=== PATIENT | female | born 1965 | race American Indian/Alaskan Native ===

== ENCOUNTER 2016-11-21 00:41 | Emergency (ER) | payer MEDICAID, OTHER ==
--- NOTE | 2016-11-21 04:24 | EDM.PDOC ---
ED HISTORY OF PRESENT ILLNESS - General Chief Complaint: Respiratory Problem Stated Complaint: [facility] Time Seen by Provider: 11/21/16 03:59 Source of Information: Reports: Old records, RN notes reviewed History Limitations: Reports: Altered mental status - History of Present Illness INITIAL COMMENTS - FREE TEXT/NARRATIVE: The patient was brought by [facility], however, they left without leaving a run sheet, and our printer is down, therefore we cannot receive a facsimile. The triage nurse was informed that the patient brought for shortness of breath. She apparently has had recent illness and cough, and stated that she has a history of COPD. EMS placed a nonrebreather mask at 10 L. She initially denied pain, but about the time of arrival complained of some brief chest pain. Reviewing prior medical records, the patient has a history of morbid obesity, CHF, and alcohol abuse. No record of a history of COPD. She apparently takes home oxygen at 4L/min, but we do not know of the underlying pulmonary condition for which she takes oxygen. On my evaluation, I found the patient to appear to be sleeping. She would grimace with a sternal rub, but not open her eyes, follow commands, or answer questions. I ordered an ABG which returned with a pH of 7.19 and a PCO2 of > 115. The patient was therefore moved to a trauma room, and preparations were made for intubation. The patient's BP declined while receiving BVM ventilations prior to intubation, therefore I was reluctant to give propofol, however, given the patient's weight of 185 kg, she would require other agents, such as Versed, Ativan, or Valium in excess of what is available to us in the ED. Additionally, I was concerned that given the patient's body habitus, the intubation would likely be difficult , and therefore I was concerned about giving a paralytic. I therefore chose to start the patient on Levophed to raise her blood pressure, which would allow me to use propofol, if required. With Levophed at 25 mcg/min, the patient's BP was adequate, and, likely due to prolonged BVM ventilations, she was beginning to wake up. She was given 2 boluses of Propofol 40 mg/4 ml, resulting in adequate sedation. The patient was then intubated with an 8.0 ET tube using a Mac 4 blade, without difficulty. Endotracheal intubation confirmed with CO2 colorimetric change, fog in the ETT , bilateral breath sounds, and continued good oxygenation. The ET tube was secured at 23 cm at the incisors. Subsequent portable chest radiograph confirms endotracheal intubation, with the ETT tip approximately 2 cm above the fabricio. Initial vent settings A/C 16/.400/5/0.40, later changed to A/C 16/.400/5/1.0 due to low SpO2. - Related Data Allergies/ADRs: Allergies Allergy/AdvReac Type Severity Reaction Status Date / Time No Known Allergies Allergy Verified 11/21/16 00:58 Home Meds: Home Meds Furosemide [Lasix] 40 mg PO DAILY 11/21/16 [History] Omeprazole 1 tab PO DAILY 11/21/16 [History] Past Medical History Cardiovascular History: Reports: Heart Failure, Hypertension Respiratory History: Reports: COPD (suspected) Genitourinary History: Reports: Other (see below) (Solitary kidney) Endocrine/Metabolic History: Reports: Obesity/BMI 30+ - Past Surgical History Female Surgical History: Reports: Nephrectomy Social & Family History - Tobacco Use Smoking Status *Q: Current Every Day Smoker - Caffeine Use Caffeine Use: Reports: Coffee - Alcohol Use Alcohol Use History: Yes Total Drinks Per Week Comment: History of alcoholism ED ROS GENERAL - Review of Systems Review Of Systems: See Below Respiratory: Reports: Shortness of Breath (as per the HPI), Cough (as per the HPI) ED EXAM, GENERAL - Physical Exam Exam: See Below Exam Limited By: Altered mental status General Appearance: obtunded, mild distress Ears: normal external exam Ear Exam: bilateral ear: auricle normal Nose: normal inspection, no blood Throat/Mouth: Normal inspection, Normal lips, Normal teeth, Normal gums, Normal oropharynx, No airway compromise Head: atraumatic, normocephalic Neck: normal inspection, full range of motion Respiratory/Chest: no accessory muscle use, decreased breath sounds. No: crackles, rhonchi, wheezing Cardiovascular: normal peripheral pulses, regular rate, rhythm, no edema, no gallop, no JVD, no murmur, no rub Peripheral Pulses: 4+: radial (L), radial (R) GI/Abdominal: normal bowel sounds, soft, no abnormal bruit, other (Obese) Extremities: normal range of motion, normal capillary refill, other (1-2+ pretibial pitting edema, bilaterally) Neurological: unresponsive Skin Exam: Warm, Dry, Intact, Normal color, No rash Lymphatic: no adenopathy ED RESPIRATORY PROCEDURES - Endotracheal Intubation Time of intubation: 04:56 ET Intubation Indication: respiratory failure Preparation: suction, balloon tested, BVM set up, difficult airway equip ( Glidescope available) Pre-oxygenation: assisted with BVM, 100% FiO2 Anesthesia Meds: Propofol Placement: orotracheal, cuffed, uncomplicated placement Cords visualized: yes ETT size in mm: 8.0 Number of attempts: 1 Confirmed By: CO2 indicator, bilateral breath sounds, chest xray, other (CO2 colorimetric) Tube Secured By: by RT ED CENTRAL LINE INSERTION - Central Line Insertion Central Line Indication: medication administration Site: internal jugular (L) Prep: CDC/MBT guidelines, sterile drapes, chlorhexidine Lumen: triple Gauge: 7Fr Local anesthesia - Lidocaine (Xylocaine): 1% plain Local anesthetic volume: 1cc Ultrasound guided: No Guidewire and dilator removed intact: Yes Complications: No Secured with suture: Yes Post placement confirmation: CXR, all ports aspirated, all ports flushed CXR post-procedure: no pneumothorax, no hemothorax Dressing applied: by provider EKG INTERPRETATION EKG Date: 11/21/16 Time: 02:28 Rhythm: NSR Rate (beats/min): 63 [place]: RAD-right axis deviation P-wave: present QRS: normal ST-T: normal QT: normal Comparison: NA - no prior EKG Course - Vital Signs Last Recorded V/S: Last Vital Signs Temp 36.4 C 11/21/16 00:52 Pulse 49 L 11/21/16 05:30 Resp 26 H 11/21/16 05:30 BP 120/54 L 11/21/16 05:30 Pulse Ox 97 11/21/16 06:00 - Orders/Labs/Meds Orders: Active Orders 24 hr Category Date Time Status EKG 12 Lead [EKG Documentation Completion] [RC] STAT Care 11/21/16 03:10 Active RT Ventilator, Adult [RC] ASDIRECTED Care 11/21/16 04:56 Active Chest 1V Frontal [CR] Routine Exams 11/21/16 08:50 Taken Chest 1V Frontal [CR] Routine Exams 11/21/16 09:05 Taken Chest 1V Frontal [CR] Stat Exams 11/21/16 03:32 Taken Chest 1V Frontal [CR] Stat Exams 11/21/16 05:25 Taken CULTURE URINE [RM] Stat Lab 11/21/16 05:35 Received Norepinephrine [Levophed] 4 mg Med 11/21/16 05:30 Active Dextrose 5% in Water 246 ml IV TITRATE Propofol [Diprivan 100 ML] 100 ml Med 11/21/16 05:30 Active IV TITRATE Sodium Chloride 0.9% [Normal Saline] 1,000 ml Med 11/21/16 05:30 Active IV ASDIRECTED Desired Level of Sedation (RASS) [AST] Click To Edit Oth 11/21/16 05:20 Ordered Medication Orders Norepinephrine Bitartrate 4 mg (/ Dextrose/Water) 250 mls @ 37.5 mls/hr IV TITRATE JOHNATHAN; 10 MCG/MIN PRN Reason: Protocol Last Admin: 11/21/16 04:45 Dose: 10 mcg/min, 37.5 mls/hr Propofol (Diprivan 100 Ml) 100 mls @ 34.019 mls/hr IV TITRATE JOHNATHAN; 25 MCG/KG/ MIN PRN Reason: Protocol Last Titration: 11/21/16 05:21 Dose: 25 mcg/kg/min, 34.019 mls/hr Admin: 11/21/16 04:57 Dose: 25 mcg/kg/min, 34.019 mls/hr Sodium Chloride (Normal Saline) 1,000 mls @ 100 mls/hr IV ASDIRECTED JOHNATHAN Labs: Laboratory Tests 11/21/16 11/21/16 11/21/16 Range/Units 03:18 03:18 03:18 WBC 7.33 (3.98-10.04) K/mm3 RBC 4.91 (3.98-5.22) M/mm3 Hgb 12.5 (11.2-15.7) gm/L Hct 47.7 H (34.1-44.9) % MCV 97.1 H (79.4-94.8) fl MCH 25.5 L (25.6-32.2) pg MCHC 26.2 L (32.2-35.5) g/dl RDW Std Deviation 59.9 H (36.4-46.3) fL Plt Count 102 L (182-369) K/mm3 MPV 11.7 (9.4-12.3) fl Neut % (Auto) 65.7 (34.0-71.1) % Lymph % (Auto) 21.1 (19.3-51.7) % [place] % (Auto) 10.9 (4.7-12.5) % Eos % (Auto) 1.6 (0.7-5.8) Baso % (Auto) 0.3 (0.1-1.2) % Neut # 4.81 (1.56-6.13) K/mm3 Lymph # 1.55 (1.18-3.74) K/mm3 [place] # 0.80 H (0.24-0.36) K/mm3 Eos # 0.12 (0.04-0.36) K/mm3 Baso # 0.02 (0.01-0.08) K/mm3 Manual Slide Review Abnormal smear PT 11.9 (8.0-13.0) SECONDS INR 1.09 APTT 33 (22-36) SECONDS D-Dimer, Quantitative 1.78 H (0.19-0.59) mg/L Puncture Site ABG pH (7.35-7.45) ABG pCO2 (35.0-45.0) mmHg ABG pO2 (80.0-100.0) mmHg ABG HCO3 (22.0-26.0) meq/L ABG O2 Saturation (96.0-97.0) % ABG Base Excess (-2-2.0) A-a Gradient mmHg O2 Delivery Device Oxygen Flow Rate FiO2 (21.00-100.00) % Tidal Volume cc PEEP cmH20 Sodium 147 H (136-145) mEq/L Potassium 4.8 (3.5-5.1) mEq/L Chloride 104 (98-107) mEq/L Carbon Dioxide 45 H* (21-32) mEq/L Anion Gap 2.8 L (5-15) BUN 15 (7-18) mg/dL Creatinine 1.0 (0.55-1.02) mg/dL Est Cr Clr Drug Dosing 52.05 mL/min Estimated GFR (MDRD) 58 (>60) mL/min BUN/Creatinine Ratio 15.0 (14-18) Glucose 119 H (74-106) mg/dL Calcium 8.6 (8.5-10.1) mg/dL Total Bilirubin 1.0 (0.2-1.0) mg/dL AST 12 L (15-37) U/L ALT 13 L (14-59) U/L Alkaline Phosphatase 75 (46-116) U/L Troponin I 0.036 (0.00-0.056) ng/mL B-Natriuretic Peptide (0-100) pg/mL Total Protein 8.3 H (6.4-8.2) g/dl Albumin 3.7 (3.4-5.0) g/dl Globulin 4.6 gm/dL Albumin/Globulin Ratio 0.8 L (1-2) Urine Color (Yellow) Urine Appearance (Clear) Urine pH (5.0-8.0) Ur Specific [place] (1.005-1.030) Urine Protein (Negative) Urine Glucose (UA) (Negative) Urine Ketones (Negative) Urine Occult Blood (Negative) Urine Nitrite (Negative) Urine Bilirubin (Negative) Urine Urobilinogen (0.2-1.0) Ur Leukocyte Esterase (Negative) Urine RBC (0-5) /hpf Urine WBC (0-5) /hpf Ur Epithelial Cells (0-5) /hpf Urine Bacteria (FEW) /hpf Urine Mucus (FEW) /hpf Salicylates (2.8-20) mg/dL Urine Opiates Screen (NEGATIVE) Ur Buprenorphine Scrn (NEGATIVE) Ur Oxycodone Screen (NEGATIVE) Urine Methadone Screen (NEGATIVE) Ur Propoxyphene Screen (NEGATIVE) Acetaminophen (10-30) ug/mL Ur Barbiturates Screen (NEGATIVE) Ur Tricyclics Screen (NEGATIVE) Ur Phencyclidine Scrn (NEGATIVE) Ur Amphetamine Screen (NEGATIVE) U Methamphetamines Scrn (NEGATIVE) U Benzodiazepines Scrn (NEGATIVE) U Cocaine Metab Screen (NEGATIVE) U Marijuana (THC) Screen (NEGATIVE) Ethyl Alcohol (0.00) gm% 11/21/16 11/21/16 11/21/16 Range/Units 03:18 03:18 03:18 WBC (3.98-10.04) K/mm3 RBC (3.98-5.22) M/mm3 Hgb (11.2-15.7) gm/L Hct (34.1-44.9) % MCV (79.4-94.8) fl MCH (25.6-32.2) pg MCHC (32.2-35.5) g/dl RDW Std Deviation (36.4-46.3) fL Plt Count (182-369) K/mm3 MPV (9.4-12.3) fl Neut % (Auto) (34.0-71.1) % Lymph % (Auto) (19.3-51.7) % [place] % (Auto) (4.7-12.5) % Eos % (Auto) (0.7-5.8) Baso % (Auto) (0.1-1.2) % Neut # (1.56-6.13) K/mm3 Lymph # (1.18-3.74) K/mm3 [place] # (0.24-0.36) K/mm3 Eos # (0.04-0.36) K/mm3 Baso # (0.01-0.08) K/mm3 Manual Slide Review PT (8.0-13.0) SECONDS INR APTT (22-36) SECONDS D-Dimer, Quantitative (0.19-0.59) mg/L Puncture Site ABG pH (7.35-7.45) ABG pCO2 (35.0-45.0) mmHg ABG pO2 (80.0-100.0) mmHg ABG HCO3 (22.0-26.0) meq/L ABG O2 Saturation (96.0-97.0) % ABG Base Excess (-2-2.0) A-a Gradient mmHg O2 Delivery Device Oxygen Flow Rate FiO2 (21.00-100.00) % Tidal Volume cc PEEP cmH20 Sodium (136-145) mEq/L Potassium (3.5-5.1) mEq/L Chloride (98-107) mEq/L Carbon Dioxide (21-32) mEq/L Anion Gap (5-15) BUN (7-18) mg/dL Creatinine (0.55-1.02) mg/dL Est Cr Clr Drug Dosing mL/min Estimated GFR (MDRD) (>60) mL/min BUN/Creatinine Ratio (14-18) Glucose (74-106) mg/dL Calcium (8.5-10.1) mg/dL Total Bilirubin (0.2-1.0) mg/dL AST (15-37) U/L ALT (14-59) U/L Alkaline Phosphatase (46-116) U/L Troponin I (0.00-0.056) ng/mL B-Natriuretic Peptide 617 H (0-100) pg/mL Total Protein (6.4-8.2) g/dl Albumin (3.4-5.0) g/dl Globulin gm/dL Albumin/Globulin Ratio (1-2) Urine Color (Yellow) Urine Appearance (Clear) Urine pH (5.0-8.0) Ur Specific [place] (1.005-1.030) Urine Protein (Negative) Urine Glucose (UA) (Negative) Urine Ketones (Negative) Urine Occult Blood (Negative) Urine Nitrite (Negative) Urine Bilirubin (Negative) Urine Urobilinogen (0.2-1.0) Ur Leukocyte Esterase (Negative) Urine RBC (0-5) /hpf Urine WBC (0-5) /hpf Ur Epithelial Cells (0-5) /hpf Urine Bacteria (FEW) /hpf Urine Mucus (FEW) /hpf Salicylates 0.6 L (2.8-20) mg/dL Urine Opiates Screen (NEGATIVE) Ur Buprenorphine Scrn (NEGATIVE) Ur Oxycodone Screen (NEGATIVE) Urine Methadone Screen (NEGATIVE) Ur Propoxyphene Screen (NEGATIVE) Acetaminophen 0 L (10-30) ug/mL Ur Barbiturates Screen (NEGATIVE) Ur Tricyclics Screen (NEGATIVE) Ur Phencyclidine Scrn (NEGATIVE) Ur Amphetamine Screen (NEGATIVE) U Methamphetamines Scrn (NEGATIVE) U Benzodiazepines Scrn (NEGATIVE) U Cocaine Metab Screen (NEGATIVE) U Marijuana (THC) Screen (NEGATIVE) Ethyl Alcohol 0.00 (0.00) gm% 11/21/16 11/21/16 11/21/16 Range/Units 04:00 05:35 05:35 WBC (3.98-10.04) K/mm3 RBC (3.98-5.22) M/mm3 Hgb (11.2-15.7) gm/L Hct (34.1-44.9) % MCV (79.4-94.8) fl MCH (25.6-32.2) pg MCHC (32.2-35.5) g/dl RDW Std Deviation (36.4-46.3) fL Plt Count (182-369) K/mm3 MPV (9.4-12.3) fl Neut % (Auto) (34.0-71.1) % Lymph % (Auto) (19.3-51.7) % [place] % (Auto) (4.7-12.5) % Eos % (Auto) (0.7-5.8) Baso % (Auto) (0.1-1.2) % Neut # (1.56-6.13) K/mm3 Lymph # (1.18-3.74) K/mm3 [place] # (0.24-0.36) K/mm3 Eos # (0.04-0.36) K/mm3 Baso # (0.01-0.08) K/mm3 Manual Slide Review PT (8.0-13.0) SECONDS INR APTT (22-36) SECONDS D-Dimer, Quantitative (0.19-0.59) mg/L Puncture Site Rt radial ABG pH 7.19 L* (7.35-7.45) ABG pCO2 > 115.0 H* (35.0-45.0) mmHg ABG pO2 85.0 (80.0-100.0) mmHg ABG HCO3 (22.0-26.0) meq/L ABG O2 Saturation (96.0-97.0) % ABG Base Excess (-2-2.0) A-a Gradient mmHg O2 Delivery Device Cannula Oxygen Flow Rate 4.0 FiO2 36.00 (21.00-100.00) % Tidal Volume cc PEEP cmH20 Sodium (136-145) mEq/L Potassium (3.5-5.1) mEq/L Chloride (98-107) mEq/L Carbon Dioxide (21-32) mEq/L Anion Gap (5-15) BUN (7-18) mg/dL Creatinine (0.55-1.02) mg/dL Est Cr Clr Drug Dosing mL/min Estimated GFR (MDRD) (>60) mL/min BUN/Creatinine Ratio (14-18) Glucose (74-106) mg/dL Calcium (8.5-10.1) mg/dL Total Bilirubin (0.2-1.0) mg/dL AST (15-37) U/L ALT (14-59) U/L Alkaline Phosphatase (46-116) U/L Troponin I (0.00-0.056) ng/mL B-Natriuretic Peptide (0-100) pg/mL Total Protein (6.4-8.2) g/dl Albumin (3.4-5.0) g/dl Globulin gm/dL Albumin/Globulin Ratio (1-2) Urine Color [place] H (Yellow) Urine Appearance Slt cloudy H (Clear) Urine pH 5.5 (5.0-8.0) Ur Specific [place] > or = 1.030 (1.005-1.030) Urine Protein 3+ H (Negative) Urine Glucose (UA) Negative (Negative) Urine Ketones Negative (Negative) Urine Occult Blood 1+ H (Negative) Urine Nitrite Positive H (Negative) Urine Bilirubin 1+ H (Negative) Urine Urobilinogen 2.0 H (0.2-1.0) Ur Leukocyte Esterase Negative (Negative) Urine RBC 0-5 (0-5) /hpf Urine WBC 0-5 (0-5) /hpf Ur Epithelial Cells 0-5 (0-5) /hpf Urine Bacteria Many H (FEW) /hpf Urine Mucus Few (FEW) /hpf Salicylates (2.8-20) mg/dL Urine Opiates Screen Negative (NEGATIVE) Ur Buprenorphine Scrn Negative (NEGATIVE) Ur Oxycodone Screen Negative (NEGATIVE) Urine Methadone Screen Negative (NEGATIVE) Ur Propoxyphene Screen Negative (NEGATIVE) Acetaminophen (10-30) ug/mL Ur Barbiturates Screen Negative (NEGATIVE) Ur Tricyclics Screen Negative (NEGATIVE) Ur Phencyclidine Scrn Negative (NEGATIVE) Ur Amphetamine Screen Negative (NEGATIVE) U Methamphetamines Scrn Negative (NEGATIVE) U Benzodiazepines Scrn Negative (NEGATIVE) U Cocaine Metab Screen Negative (NEGATIVE) U Marijuana (THC) Screen Negative (NEGATIVE) Ethyl Alcohol (0.00) gm% 11/21/16 11/21/16 Range/Units 05:40 06:30 WBC (3.98-10.04) K/mm3 RBC (3.98-5.22) M/mm3 Hgb (11.2-15.7) gm/L Hct (34.1-44.9) % MCV (79.4-94.8) fl MCH (25.6-32.2) pg MCHC (32.2-35.5) g/dl RDW Std Deviation (36.4-46.3) fL Plt Count (182-369) K/mm3 MPV (9.4-12.3) fl Neut % (Auto) (34.0-71.1) % Lymph % (Auto) (19.3-51.7) % [place] % (Auto) (4.7-12.5) % Eos % (Auto) (0.7-5.8) Baso % (Auto) (0.1-1.2) % Neut # (1.56-6.13) K/mm3 Lymph # (1.18-3.74) K/mm3 [place] # (0.24-0.36) K/mm3 Eos # (0.04-0.36) K/mm3 Baso # (0.01-0.08) K/mm3 Manual Slide Review PT (8.0-13.0) SECONDS INR APTT (22-36) SECONDS D-Dimer, Quantitative (0.19-0.59) mg/L Puncture Site Lt radial Lt radial ABG pH 7.22 L 7.27 L (7.35-7.45) ABG pCO2 104.8 H* 91.3 H* (35.0-45.0) mmHg ABG pO2 109.0 H 66.0 L (80.0-100.0) mmHg ABG HCO3 41.2 H 40.1 H (22.0-26.0) meq/L ABG O2 Saturation 98.4 H 94.1 L (96.0-97.0) % ABG Base Excess 9.4 H 9.8 H (-2-2.0) A-a Gradient 434 224 mmHg O2 Delivery Device Ventilator Ventilator Oxygen Flow Rate FiO2 1.00 L 60.00 (21.00-100.00) % Tidal Volume 400.0 400.0 cc PEEP 5.0 5.0 cmH20 Sodium (136-145) mEq/L Potassium (3.5-5.1) mEq/L Chloride (98-107) mEq/L Carbon Dioxide (21-32) mEq/L Anion Gap (5-15) BUN (7-18) mg/dL Creatinine (0.55-1.02) mg/dL Est Cr Clr Drug Dosing mL/min Estimated GFR (MDRD) (>60) mL/min BUN/Creatinine Ratio (14-18) Glucose (74-106) mg/dL Calcium (8.5-10.1) mg/dL Total Bilirubin (0.2-1.0) mg/dL AST (15-37) U/L ALT (14-59) U/L Alkaline Phosphatase (46-116) U/L Troponin I (0.00-0.056) ng/mL B-Natriuretic Peptide (0-100) pg/mL Total Protein (6.4-8.2) g/dl Albumin (3.4-5.0) g/dl Globulin gm/dL Albumin/Globulin Ratio (1-2) Urine Color (Yellow) Urine Appearance (Clear) Urine pH (5.0-8.0) Ur Specific [place] (1.005-1.030) Urine Protein (Negative) Urine Glucose (UA) (Negative) Urine Ketones (Negative) Urine Occult Blood (Negative) Urine Nitrite (Negative) Urine Bilirubin (Negative) Urine Urobilinogen (0.2-1.0) Ur Leukocyte Esterase (Negative) Urine RBC (0-5) /hpf Urine WBC (0-5) /hpf Ur Epithelial Cells (0-5) /hpf Urine Bacteria (FEW) /hpf Urine Mucus (FEW) /hpf Salicylates (2.8-20) mg/dL Urine Opiates Screen (NEGATIVE) Ur Buprenorphine Scrn (NEGATIVE) Ur Oxycodone Screen (NEGATIVE) Urine Methadone Screen (NEGATIVE) Ur Propoxyphene Screen (NEGATIVE) Acetaminophen (10-30) ug/mL Ur Barbiturates Screen (NEGATIVE) Ur Tricyclics Screen (NEGATIVE) Ur Phencyclidine Scrn (NEGATIVE) Ur Amphetamine Screen (NEGATIVE) U Methamphetamines Scrn (NEGATIVE) U Benzodiazepines Scrn (NEGATIVE) U Cocaine Metab Screen (NEGATIVE) U Marijuana (THC) Screen (NEGATIVE) Ethyl Alcohol (0.00) gm% Meds: Medications Generic Name Dose Route Start Last Admin Trade Name Freq PRN Reason Stop Dose Admin Norepinephrine Bitartrate 4 mg 250 mls @ 37.5 mls/hr 11/21/16 05:30 11/21/16 04:45 / Dextrose/Water IV 10 mcg/min TITRATE JOHNATHAN 37.5 mls/hr Protocol Administration 10 MCG/MIN Propofol 100 mls @ 34.019 mls/hr 11/21/16 05:30 11/21/16 05:21 Diprivan 100 Ml IV 25 mcg/kg/min TITRATE JOHNATHAN 34.019 mls/hr Protocol Titration 25 MCG/KG/MIN Sodium Chloride 1,000 mls @ 100 mls/hr 11/21/16 05:30 Normal Saline IV ASDIRECTED JOHNATHAN Discontinued Medications Generic Name Dose Route Start Last Admin Trade Name Cliff PRN Reason Stop Dose Admin Propofol Confirm 11/21/16 04:42 11/21/16 05:21 Diprivan 100 Ml Administered 11/21/16 04:43 Not Given Dose 100 mls @ as directed .ROUTE .STK-MED ONE Dextrose/Water Confirm 11/21/16 04:43 11/21/16 05:21 Dextrose 5% In Water Administered 11/21/16 04:44 Not Given Dose 250 mls @ as directed .ROUTE .STK-MED ONE Sodium Chloride 1,000 mls @ 100 mls/hr 11/21/16 05:15 11/21/16 04:40 Normal Saline IV 100 mls/hr ASDIRECTED JOHNATHAN Administration Azithromycin 500 mg/ Sodium 250 mls @ 250 mls/hr 11/21/16 08:00 11/21/16 08: 49 Chloride IV 11/21/16 08:59 250 mls/hr ONETIME ONE Administration Ceftriaxone Sodium 2 gm/ 100 mls @ 200 mls/hr 11/21/16 08:00 11/21/16 08:49 Sodium Chloride IV 11/21/16 08:29 200 mls/hr ONETIME ONE Administration Propofol 40 mg 11/21/16 05:19 11/21/16 04:55 Diprivan 20 Ml IVPUSH 11/21/16 05:20 40 mg ONETIME ONE Administration Propofol 40 mg 11/21/16 05:24 11/21/16 04:57 Diprivan 20 Ml IVPUSH 11/21/16 05:25 40 mg ONETIME ONE Administration - Radiology Interpretation Free Text/Narrative:: Portable chest radiograph obtained 11/20/2016 (prior to intubation) appears to demonstrate cardiomegaly, but no pulmonary vascular congestion or pleural effusions to suggest decompensated CHF. No focal infiltrate. No pneumothorax. Formal read per the Radiologist pending. Post-intubation portable chest radiograph is of limited quality. The ET tube appears to be endotracheal, with the tip approximately 2 cm above the fabricio. There are bilateral lung field opacities compatible with bilateral pneumonia, ARDS, or CHF, and the patient's body habitus may be a contributing factor. No apparent pleural effusions. No pneumothorax. possible cardiomegaly, although difficult to determine. Formal read per the Radiologist pending. - Re-Assessments/Exams Free Text/Narrative Re-Assessment/Exam: 11/21/16 05:54 ABG obtained about 30 minutes after intubation, while on A/C 16/.400/5/1.0 is as follows: 7.22/104.8/109/41.2/98.4%. SpO2 96%. FiO2 decreased to 0.60. Given the patient's body habitus, I don't believe there is much room to increase her minute ventilation. Her PAP is approximately 34. The patient's pH and PCO2 are heading in the right direction. At this time, I am not going to make any other vent changes, but will repeat an ABG at 06:30. 11/21/16 06:55 The patient will need to be admitted to the ICU, however, there are no ICU beds available at this facility. We contacted [facility], however, were told that the Learning Program Manager will be busy in the ICU for about an hour. 11/21/16 07:09 ABG drawn around 06:30 is as follows: 7.27/91.3/66/40.1/94.1% Her pH and PCO2 continue to improve. No changes to her vent settings at this time. 11/21/16 07:[address] Kendall Alva, Learning Program Manager at [facility], at 07:50. He accepts the patient for transfer. He requests that we start the patient on ceftriaxone and azithromycin. Departure - Departure Time of Disposition: 08:38 Disposition: DC/Tfer to Acute Hospital 02 Condition: serious Clinical Impression: Hypercapnic respiratory failure Referrals: Shaka Meyer MD [Primary Care Provider] - - My Orders Last 24 Hours: My Active Orders 11/21/16 03:10 EKG 12 Lead [EKG Documentation Completion] [RC] STAT 11/21/16 04:56 RT Ventilator, Adult [RC] ASDIRECTED 11/21/16 05:20 Desired Level of Sedation (RASS) [AST] Click To Edit 11/21/16 05:25 Chest 1V Frontal [CR] Stat 11/21/16 05:30 Norepinephrine [Levophed] 4 mg Dextrose 5% in Water 246 ml IV TITRATE Propofol [Diprivan 100 ML] 100 ml IV TITRATE Sodium Chloride 0.9% [Normal Saline] 1,000 ml IV ASDIRECTED 11/21/16 05:35 CULTURE URINE [RM] Stat 11/21/16 08:50 Chest 1V Frontal [CR] Routine 11/21/16 09:05 Chest 1V Frontal [CR] Routine - Assessment/Plan Last 24 Hours: My Active Orders 11/21/16 03:10 EKG 12 Lead [EKG Documentation Completion] [RC] STAT 11/21/16 04:56 RT Ventilator, Adult [RC] ASDIRECTED 11/21/16 05:20 Desired Level of Sedation (RASS) [AST] Click To Edit 11/21/16 05:25 Chest 1V Frontal [CR] Stat 11/21/16 05:30 Norepinephrine [Levophed] 4 mg Dextrose 5% in Water 246 ml IV TITRATE Propofol [Diprivan 100 ML] 100 ml IV TITRATE Sodium Chloride 0.9% [Normal Saline] 1,000 ml IV ASDIRECTED 11/21/16 05:35 CULTURE URINE [RM] Stat 11/21/16 08:50 Chest 1V Frontal [CR] Routine 11/21/16 09:05 Chest 1V Frontal [CR] Routine
[2016-11-21] MEDS ORDERED: Dextrose 5% in Water 250 ML ONE (04:43)
[2016-11-21] MEDS ORDERED: Sodium Chloride 0.9% 1,000 ML IV SCH ×2 (05:15→05:30)
[2016-11-21] MEDS ORDERED: Propofol 200 MG/20 ML SDV IVPUSH ONE ×2 (05:19→05:24)
[2016-11-21] MEDS ORDERED: Succinylcholine 200 MG/10 ML MDV ONE (05:25)
[2016-11-21] MEDS ORDERED: Norepinephrine 4 MG in Dextrose 5% in Water 246 ML IV SCH ×2 (05:30)
[2016-11-21 05:36] VITALS: BP 120/54
[2016-11-21] MEDS ORDERED: Azithromycin 500 MG in Sodium Chloride 0.9% 250 ML IV ONE (08:00)
[2016-11-21] MEDS ORDERED: cefTRIAXone 2 GM in Sodium Chloride 0.9% 100 ML IV ONE (08:00)
--- NOTE | 2016-11-22 07:59 | CR ---
Chest: Portable view of the chest was obtained. Comparison: No previous study. Heart is enlarged. Pulmonary vessels are congested. Bony structures are grossly intact. Impression: 1. Findings felt compatible with CHF. Diagnostic code #3
--- NOTE | 2016-11-22 07:59 | CR ---
Chest: Portable supine view of the chest was obtained. Comparison: Previous chest x-ray of 11/21/16. Heart is enlarged. Pulmonary vessels are felt to be congested. Right hemidiaphragm is poorly seen possibly due to pleural effusion. Endotracheal tube is seen with the tip lying at the lower level of the clavicles. Bony structures are grossly intact. Impression: 1. Findings felt compatible with CHF as described above. 2. Tip of endotracheal tube at the level of the clavicles. Diagnostic code #3
--- NOTE | 2016-11-22 07:59 | CR ---
Chest: Frontal view of the chest was obtained. Comparison: Previous chest x-ray performed earlier on the same day (08:39 AM). Endotracheal tube is seen. Tip lies at the lower level of the clavicles. Nasogastric tube is noted coursing off the inferior edge of the film into the stomach. Heart is enlarged. Pulmonary vessels are congested. Impression: 1. Endotracheal tube and nasogastric tube as noted above. 2. Findings compatible with continuing CHF. Diagnostic code #3
--- NOTE | 2016-11-23 13:12 | CR ---
Chest: Portable view of the chest was obtained. Comparison: Previous chest x-ray performed earlier on the same day (3:36 AM). Endotracheal tube is seen. Tip lies at the lower level of the clavicles in satisfactory position. Heart is enlarged. Pulmonary vessels remain mildly congested. Bony structures are grossly intact. Impression: 1. Cardiomegaly and pulmonary vascular congestion. Findings are similar to prior exam. 2. Endotracheal tube is seen with tip lying at the lower level of the clavicles in satisfactory position. Diagnostic code #3
== END 2016-11-21 09:45 ==
LOC: JD.ED 00:41
PROC: 0BH17EZ Insertion of Endotracheal Airway into Trachea, Via Natural or Artificial Opening (ICD-10-PCS; principal; 2016-11-21)
PROC: 5A1935Z Respiratory Ventilation, Less than 24 Consecutive Hours (ICD-10-PCS; 2016-11-21)
DX: J96.92 Respiratory failure, unspecified with hypercapnia (principal); I50.9 Heart failure, unspecified; E66.01 Morbid (severe) obesity due to excess calories; F10.10 Alcohol abuse, uncomplicated; F17.200 Nicotine dependence, unspecified, uncomplicated; I10 Essential (primary) hypertension; Z90.5 Acquired absence of kidney; Z79.899 Other long term (current) drug therapy; Z68.43 Body mass index [BMI] 50.0-59.9, adult; R41.82 Altered mental status, unspecified
CPT/HCPCS: 31500; 36415; 36556; 36600; 51702; 71010; 80053; 80306; 81001; 82803; 82962; 83880; 84484; 85025; 85379; 85610; 85730; 87086; 87088; 87186; 87804; 93005; 94002; 96365; 96366; 96368; 96375; 99285; G0480; J0330; J0456; J0696; J7030; J7040; J7050; J7060; J2704; J3490

== ENCOUNTER 2017-01-06 19:20 | Emergency (ER) | payer MEDICAID, OTHER ==
[2017-01-06 19:31] VITALS: BP 160/61
[2017-01-06] MEDS ORDERED: Sodium Chloride 0.9% 10 ML Syringe FLUSH PRN (19:38)
[2017-01-06] MEDS ORDERED: Furosemide 40 MG/4 ML VIAL IVPUSH ONE ×3 (19:51→21:29)
--- NOTE | 2017-01-06 19:53 | EDM.PDOC ---
ED HISTORY OF PRESENT ILLNESS - General Chief Complaint: Chest Pain Stated Complaint: [facility] Time Seen by Provider: 01/06/17 19:38 Source of Information: Reports: Patient, RN notes reviewed - History of Present Illness INITIAL COMMENTS - FREE TEXT/NARRATIVE: 51-year-old female has been brought in by [facility] for evaluation of shortness of breath, chest pain, generalized weakness and confusion. Patient is confused on arrival to ED,with altered mental status and not able to offer any meaningful information. By the time I was called to see the patient the ambulance crew had left so not able to ask further questions. Therefore I have no idea when her symptoms started or any information regarding past medical history at time of initial evaluation. - Related Data Allergies/ADRs: Allergies Allergy/AdvReac Type Severity Reaction Status Date / Time No Known Allergies Allergy Verified 01/06/17 19:31 Home Meds: Home Meds Albuterol/Ipratropium [DuoNeb 3.0-0.5 MG/3 ML] 3 ml NEB Q4H PRN #90 neb [Rx] Fluticasone/Salmeterol [Advair Diskus 250-50] 1 puff INH BID #1 inhaler [Rx] Furosemide [Lasix] 20 mg PO BIDDIURETIC #60 tablet 09/07/16 [Rx] Nicotine [Habitrol] 14 mg TRDERM DAILY #30 patch 09/07/16 [Rx] Omeprazole 20 mg PO BIDAC #60 cap.cr 09/07/16 [Rx] Potassium Chloride 10 meq PO DAILY #30 capsule.er 09/07/16 [Rx] guaiFENesin [Mucinex] 600 mg PO BID #14 tab.er 09/07/16 [Rx] Furosemide [Lasix] 40 mg PO DAILY 11/21/16 [History] Omeprazole 1 tab PO DAILY 11/21/16 [History] Past Medical History HEENT History: Reports: Impaired vision Other HEENT History: GLASSES Cardiovascular History: Reports: Heart Failure, Hypertension Respiratory History: Reports: COPD, Pneumonia, recurrent, SOB Gastrointestinal History: Reports: GERD, GI bleed, Hemorrhoids Genitourinary History: Reports: UTI, recurrent ACIDIZER History: Reports: Other OB/BYN History: 3 children vaginally Musculoskeletal History: Reports: Arthritis, Fracture Other Musculoskeletal History: right pinky Neurological History: Reports: Brain injury, Head trauma, Migraines Endocrine/Metabolic History: Reports: Obesity/BMI 30+ Oncologic (Cancer) History: Reports: Other (see below) Other Oncologic History: Kidney Other Dermatologic History: 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 she has several pitting scars to her abdomen some small round areas that are darker in color ...looks like possibly boil scars. - Past Surgical History GI Surgical History: Reports: Cholecystectomy Female Surgical History: Reports: D&C, Nephrectomy Social & Family History - Family History Family Medical History: Noncontributory Endocrine/Metabolic: Reports: Diabetes, type II - Tobacco Use Smoking Status *Q: Unknown Ever Smoked Years of Tobacco use: 20 Packs/Tins Daily: 0 Used Tobacco, but Quit: No Second Hand Smoke Exposure: No - Caffeine Use Caffeine Use: Reports: None - Recreational Drug Use Recreational Drug Use: No - Living Situation & Occupation Occupation: disabled ED ROS GENERAL - Review of Systems Review Of Systems: Unable To Obtain ED EXAM, GENERAL - Physical Exam Exam: See Below General Appearance: lethargic Eye Exam: bilateral eye: PERRL Nose: normal inspection Throat/Mouth: Normal inspection, Normal oropharynx Head: facial swelling (Secondary to obesity) Neck: other (Neck also very obese, no JVD visible) Respiratory/Chest: respiratory distress (Patient does have tachypnea on arrival to ED), rales (Bilateral) Cardiovascular: regular rate, rhythm GI/Abdominal: non tender, other (Abdomen very obese). No: guarding Extremities: pedal edema (Severe bilateral). No: increased warmth, redness Neurological: other (Patient did open her eyes when I walked into the room and asked how she was doing, not answering questions in any meaningful way) EKG INTERPRETATION EKG Date: 01/06/17 Rhythm: NSR [place]: RAD-right axis deviation P-wave: present QRS: normal ST-T: normal Course - Vital Signs Text/Narrative:: Chest x-ray shows cardiomegaly, severe pulmonary congestion, CHF. Last Recorded V/S: Last Vital Signs Temp 97.1 F 01/06/17 19:25 Pulse 76 01/06/17 19:25 Resp 28 H 01/06/17 19:25 BP 160/61 H 01/06/17 19:25 Pulse Ox 99 01/06/17 19:25 - Orders/Labs/Meds Orders: Active Orders 24 hr Category Date Time Status EKG 12 Lead [EKG Documentation Completion] [RC] STAT Care 01/06/17 19:39 Active Doshi Catheter Insertion [Insert Urinary Catheter] [OM. Care 01/06/17 21:00 Ordered PC] Q24H Oxygen Therapy [RC] ASDIRECTED Care 01/06/17 19:39 Active Peripheral IV Care [RC] . DIRECTED Care 01/06/17 19:39 Active Urinary Catheter Assessment [RC] ASDIRECTED Care 01/06/17 20:58 Active Chest 1V Frontal [CR] Stat Exams 01/06/17 19:39 Taken CULTURE URINE [RM] Stat Lab 01/06/17 21:00 Received BiPAP [RESPCARE] Urgent Oth 01/06/17 20:48 Active Peripheral IV Insertion Adult [OM.PC] Stat Oth 01/06/17 19:39 Ordered Labs: Laboratory Tests 01/06/17 01/06/17 01/06/17 Range/Units 19:30 19:30 19:30 WBC 7.94 (3.98-10.04) K/mm3 RBC 5.06 (3.98-5.22) M/mm3 Hgb 12.3 (11.2-15.7) gm/L Hct 46.8 H (34.1-44.9) % MCV 92.5 (79.4-94.8) fl MCH 24.3 L (25.6-32.2) pg MCHC 26.3 L (32.2-35.5) g/dl RDW Std Deviation 58.1 H (36.4-46.3) fL Plt Count 120 L (182-369) K/mm3 MPV 12.4 H (9.4-12.3) fl Neut % (Auto) 73.1 H (34.0-71.1) % Lymph % (Auto) 15.9 L (19.3-51.7) % Cache % (Auto) 8.8 (4.7-12.5) % Eos % (Auto) 1.4 (0.7-5.8) Baso % (Auto) 0.3 (0.1-1.2) % Neut # (Auto) 5.81 (1.56-6.13) K/mm3 Lymph # (Auto) 1.26 (1.18-3.74) K/mm3 Cache # (Auto) 0.70 H (0.24-0.36) K/mm3 Eos # (Auto) 0.11 (0.04-0.36) K/mm3 Baso # (Auto) 0.02 (0.01-0.08) K/mm3 Manual Slide Review Abnormal smear Puncture Site ABG pH (7.35-7.45) ABG pCO2 (35.0-45.0) mmHg ABG pO2 (80.0-100.0) mmHg ABG HCO3 (22.0-26.0) meq/L ABG O2 Saturation (96.0-97.0) % ABG Base Excess (-2-2.0) Obie Test A-a Gradient mmHg O2 Delivery Device Oxygen Flow Rate FiO2 (21.00-100.00) % Blood Gas Comments Sodium 142 (136-145) mEq/L Potassium 5.8 H (3.5-5.1) mEq/L Chloride 105 (98-107) mEq/L Carbon Dioxide 38 H (21-32) mEq/L Anion Gap 4.8 L (5-15) BUN 25 H (7-18) mg/dL Creatinine 1.0 (0.55-1.02) mg/dL Est Cr Clr Drug Dosing 52.05 mL/min Estimated GFR (MDRD) 58 (>60) mL/min BUN/Creatinine Ratio 25.0 H (14-18) Glucose 115 H (74-106) mg/dL POC Glucose (70-105) mg/dL Calcium 8.9 (8.5-10.1) mg/dL Total Bilirubin 1.1 H (0.2-1.0) mg/dL AST 19 (15-37) U/L ALT 12 L (14-59) U/L Alkaline Phosphatase 96 (46-116) U/L Ammonia (11-32) umol/L Troponin I 0.017 (0.00-0.056) ng/mL C-Reactive Protein (<1.0) mg/dL B-Natriuretic Peptide 697 H (0-100) pg/mL Total Protein 8.9 H (6.4-8.2) g/dl Albumin 3.7 (3.4-5.0) g/dl Globulin 5.2 gm/dL Albumin/Globulin Ratio 0.7 L (1-2) Urine Color (Yellow) Urine Appearance (Clear) Urine pH (5.0-8.0) Ur Specific [place] (1.005-1.030) Urine Protein (Negative) Urine Glucose (UA) (Negative) Urine Ketones (Negative) Urine Occult Blood (Negative) Urine Nitrite (Negative) Urine Bilirubin (Negative) Urine Urobilinogen (0.2-1.0) Ur Leukocyte Esterase (Negative) Urine RBC (0-5) /hpf Urine WBC (0-5) /hpf Ur Epithelial Cells Ur Squamous Epith Cells (0-5) /hpf Urine Bacteria (FEW) /hpf Urine Mucus Urine Opiates Screen (NEGATIVE) Ur Buprenorphine Scrn (NEGATIVE) Ur Oxycodone Screen (NEGATIVE) Urine Methadone Screen (NEGATIVE) Ur Propoxyphene Screen (NEGATIVE) Ur Barbiturates Screen (NEGATIVE) Ur Tricyclics Screen (NEGATIVE) Ur Phencyclidine Scrn (NEGATIVE) Ur Amphetamine Screen (NEGATIVE) U Methamphetamines Scrn (NEGATIVE) U Benzodiazepines Scrn (NEGATIVE) U Cocaine Metab Screen (NEGATIVE) U Marijuana (THC) Screen (NEGATIVE) Ethyl Alcohol (0.00) gm% 01/06/17 01/06/17 01/06/17 Range/Units 19:30 19:30 19:50 WBC (3.98-10.04) K/mm3 RBC (3.98-5.22) M/mm3 Hgb (11.2-15.7) gm/L Hct (34.1-44.9) % MCV (79.4-94.8) fl MCH (25.6-32.2) pg MCHC (32.2-35.5) g/dl RDW Std Deviation (36.4-46.3) fL Plt Count (182-369) K/mm3 MPV (9.4-12.3) fl Neut % (Auto) (34.0-71.1) % Lymph % (Auto) (19.3-51.7) % Cache % (Auto) (4.7-12.5) % Eos % (Auto) (0.7-5.8) Baso % (Auto) (0.1-1.2) % Neut # (Auto) (1.56-6.13) K/mm3 Lymph # (Auto) (1.18-3.74) K/mm3 Cache # (Auto) (0.24-0.36) K/mm3 Eos # (Auto) (0.04-0.36) K/mm3 Baso # (Auto) (0.01-0.08) K/mm3 Manual Slide Review Puncture Site ABG pH (7.35-7.45) ABG pCO2 (35.0-45.0) mmHg ABG pO2 (80.0-100.0) mmHg ABG HCO3 (22.0-26.0) meq/L ABG O2 Saturation (96.0-97.0) % ABG Base Excess (-2-2.0) Obie Test A-a Gradient mmHg O2 Delivery Device Oxygen Flow Rate FiO2 (21.00-100.00) % Blood Gas Comments Sodium (136-145) mEq/L Potassium (3.5-5.1) mEq/L Chloride (98-107) mEq/L Carbon Dioxide (21-32) mEq/L Anion Gap (5-15) BUN (7-18) mg/dL Creatinine (0.55-1.02) mg/dL Est Cr Clr Drug Dosing mL/min Estimated GFR (MDRD) (>60) mL/min BUN/Creatinine Ratio (14-18) Glucose (74-106) mg/dL POC Glucose 106 H (70-105) mg/dL Calcium (8.5-10.1) mg/dL Total Bilirubin (0.2-1.0) mg/dL AST (15-37) U/L ALT (14-59) U/L Alkaline Phosphatase (46-116) U/L Ammonia (11-32) umol/L Troponin I (0.00-0.056) ng/mL C-Reactive Protein 0.9 (<1.0) mg/dL B-Natriuretic Peptide (0-100) pg/mL Total Protein (6.4-8.2) g/dl Albumin (3.4-5.0) g/dl Globulin gm/dL Albumin/Globulin Ratio (1-2) Urine Color (Yellow) Urine Appearance (Clear) Urine pH (5.0-8.0) Ur Specific [place] (1.005-1.030) Urine Protein (Negative) Urine Glucose (UA) (Negative) Urine Ketones (Negative) Urine Occult Blood (Negative) Urine Nitrite (Negative) Urine Bilirubin (Negative) Urine Urobilinogen (0.2-1.0) Ur Leukocyte Esterase (Negative) Urine RBC (0-5) /hpf Urine WBC (0-5) /hpf Ur Epithelial Cells Ur Squamous Epith Cells (0-5) /hpf Urine Bacteria (FEW) /hpf Urine Mucus Urine Opiates Screen (NEGATIVE) Ur Buprenorphine Scrn (NEGATIVE) Ur Oxycodone Screen (NEGATIVE) Urine Methadone Screen (NEGATIVE) Ur Propoxyphene Screen (NEGATIVE) Ur Barbiturates Screen (NEGATIVE) Ur Tricyclics Screen (NEGATIVE) Ur Phencyclidine Scrn (NEGATIVE) Ur Amphetamine Screen (NEGATIVE) U Methamphetamines Scrn (NEGATIVE) U Benzodiazepines Scrn (NEGATIVE) U Cocaine Metab Screen (NEGATIVE) U Marijuana (THC) Screen (NEGATIVE) Ethyl Alcohol 0.00 (0.00) gm% 01/06/17 01/06/17 01/06/17 Range/Units 20:09 20:22 20:44 WBC (3.98-10.04) K/mm3 RBC (3.98-5.22) M/mm3 Hgb (11.2-15.7) gm/L Hct (34.1-44.9) % MCV (79.4-94.8) fl MCH (25.6-32.2) pg MCHC (32.2-35.5) g/dl RDW Std Deviation (36.4-46.3) fL Plt Count (182-369) K/mm3 MPV (9.4-12.3) fl Neut % (Auto) (34.0-71.1) % Lymph % (Auto) (19.3-51.7) % Cache % (Auto) (4.7-12.5) % Eos % (Auto) (0.7-5.8) Baso % (Auto) (0.1-1.2) % Neut # (Auto) (1.56-6.13) K/mm3 Lymph # (Auto) (1.18-3.74) K/mm3 Cache # (Auto) (0.24-0.36) K/mm3 Eos # (Auto) (0.04-0.36) K/mm3 Baso # (Auto) (0.01-0.08) K/mm3 Manual Slide Review Puncture Site Lt radial ABG pH 7.14 L* (7.35-7.45) ABG pCO2 114.7 H* (35.0-45.0) mmHg ABG pO2 88.0 (80.0-100.0) mmHg ABG HCO3 37.0 H (22.0-26.0) meq/L ABG O2 Saturation 95.7 L (96.0-97.0) % ABG Base Excess 4.1 H (-2-2.0) Obie Test A-a Gradient mmHg O2 Delivery Device Cannula Oxygen Flow Rate 4.0 FiO2 36.00 (21.00-100.00) % Blood Gas Comments Sodium (136-145) mEq/L Potassium (3.5-5.1) mEq/L Chloride (98-107) mEq/L Carbon Dioxide (21-32) mEq/L Anion Gap (5-15) BUN (7-18) mg/dL Creatinine (0.55-1.02) mg/dL Est Cr Clr Drug Dosing mL/min Estimated GFR (MDRD) (>60) mL/min BUN/Creatinine Ratio (14-18) Glucose (74-106) mg/dL POC Glucose (70-105) mg/dL Calcium (8.5-10.1) mg/dL Total Bilirubin (0.2-1.0) mg/dL AST (15-37) U/L ALT (14-59) U/L Alkaline Phosphatase (46-116) U/L Ammonia 77 H (11-32) umol/L Troponin I (0.00-0.056) ng/mL C-Reactive Protein (<1.0) mg/dL B-Natriuretic Peptide (0-100) pg/mL Total Protein (6.4-8.2) g/dl Albumin (3.4-5.0) g/dl Globulin gm/dL Albumin/Globulin Ratio (1-2) Urine Color (Yellow) Urine Appearance (Clear) Urine pH (5.0-8.0) Ur Specific [place] (1.005-1.030) Urine Protein (Negative) Urine Glucose (UA) (Negative) Urine Ketones (Negative) Urine Occult Blood (Negative) Urine Nitrite (Negative) Urine Bilirubin (Negative) Urine Urobilinogen (0.2-1.0) Ur Leukocyte Esterase (Negative) Urine RBC (0-5) /hpf Urine WBC (0-5) /hpf Ur Epithelial Cells Ur Squamous Epith Cells (0-5) /hpf Urine Bacteria (FEW) /hpf Urine Mucus Urine Opiates Screen Negative (NEGATIVE) Ur Buprenorphine Scrn Negative (NEGATIVE) Ur Oxycodone Screen Negative (NEGATIVE) Urine Methadone Screen Negative (NEGATIVE) Ur Propoxyphene Screen Negative (NEGATIVE) Ur Barbiturates Screen Negative (NEGATIVE) Ur Tricyclics Screen Negative (NEGATIVE) Ur Phencyclidine Scrn Negative (NEGATIVE) Ur Amphetamine Screen Negative (NEGATIVE) U Methamphetamines Scrn Negative (NEGATIVE) U Benzodiazepines Scrn Negative (NEGATIVE) U Cocaine Metab Screen Negative (NEGATIVE) U Marijuana (THC) Screen Negative (NEGATIVE) Ethyl Alcohol (0.00) gm% 01/06/17 01/06/17 01/06/17 Range/Units 20:44 21:30 21:45 WBC (3.98-10.04) K/mm3 RBC (3.98-5.22) M/mm3 Hgb (11.2-15.7) gm/L Hct (34.1-44.9) % MCV (79.4-94.8) fl MCH (25.6-32.2) pg MCHC (32.2-35.5) g/dl RDW Std Deviation (36.4-46.3) fL Plt Count (182-369) K/mm3 MPV (9.4-12.3) fl Neut % (Auto) (34.0-71.1) % Lymph % (Auto) (19.3-51.7) % Cache % (Auto) (4.7-12.5) % Eos % (Auto) (0.7-5.8) Baso % (Auto) (0.1-1.2) % Neut # (Auto) (1.56-6.13) K/mm3 Lymph # (Auto) (1.18-3.74) K/mm3 Cache # (Auto) (0.24-0.36) K/mm3 Eos # (Auto) (0.04-0.36) K/mm3 Baso # (Auto) (0.01-0.08) K/mm3 Manual Slide Review Puncture Site Lt radial ABG pH 7.16 L* (7.35-7.45) ABG pCO2 107.7 H* (35.0-45.0) mmHg ABG pO2 77.0 L (80.0-100.0) mmHg ABG HCO3 36.8 H (22.0-26.0) meq/L ABG O2 Saturation 93.4 L (96.0-97.0) % ABG Base Excess 4.5 H (-2-2.0) Obie Test A-a Gradient mmHg O2 Delivery Device Bipap Oxygen Flow Rate FiO2 40.00 (21.00-100.00) % Blood Gas Comments Bipap 12/7 cm h2o Sodium (136-145) mEq/L Potassium 5.9 H (3.5-5.1) mEq/L Chloride (98-107) mEq/L Carbon Dioxide (21-32) mEq/L Anion Gap (5-15) BUN (7-18) mg/dL Creatinine (0.55-1.02) mg/dL Est Cr Clr Drug Dosing mL/min Estimated GFR (MDRD) (>60) mL/min BUN/Creatinine Ratio (14-18) Glucose (74-106) mg/dL POC Glucose (70-105) mg/dL Calcium (8.5-10.1) mg/dL Total Bilirubin (0.2-1.0) mg/dL AST (15-37) U/L ALT (14-59) U/L Alkaline Phosphatase (46-116) U/L Ammonia (11-32) umol/L Troponin I < 0.017 (0.00-0.056) ng/mL C-Reactive Protein (<1.0) mg/dL B-Natriuretic Peptide (0-100) pg/mL Total Protein (6.4-8.2) g/dl Albumin (3.4-5.0) g/dl Globulin gm/dL Albumin/Globulin Ratio (1-2) Urine Color Yellow (Yellow) Urine Appearance Slt cloudy H (Clear) Urine pH 6.0 (5.0-8.0) Ur Specific [place] 1.025 (1.005-1.030) Urine Protein 2+ H (Negative) Urine Glucose (UA) Negative (Negative) Urine Ketones Negative (Negative) Urine Occult Blood Trace-intact H (Negative) Urine Nitrite Negative (Negative) Urine Bilirubin 1+ H (Negative) Urine Urobilinogen 2.0 H (0.2-1.0) Ur Leukocyte Esterase Negative (Negative) Urine RBC 5-10 H (0-5) /hpf Urine WBC 20-30 H (0-5) /hpf Ur Epithelial Cells Not Reportable Ur Squamous Epith Cells 0-5 (0-5) /hpf Urine Bacteria Many H (FEW) /hpf Urine Mucus Not Reportable Urine Opiates Screen (NEGATIVE) Ur Buprenorphine Scrn (NEGATIVE) Ur Oxycodone Screen (NEGATIVE) Urine Methadone Screen (NEGATIVE) Ur Propoxyphene Screen (NEGATIVE) Ur Barbiturates Screen (NEGATIVE) Ur Tricyclics Screen (NEGATIVE) Ur Phencyclidine Scrn (NEGATIVE) Ur Amphetamine Screen (NEGATIVE) U Methamphetamines Scrn (NEGATIVE) U Benzodiazepines Scrn (NEGATIVE) U Cocaine Metab Screen (NEGATIVE) U Marijuana (THC) Screen (NEGATIVE) Ethyl Alcohol (0.00) gm% 01/06/17 Range/Units 23:09 WBC (3.98-10.04) K/mm3 RBC (3.98-5.22) M/mm3 Hgb (11.2-15.7) gm/L Hct (34.1-44.9) % MCV (79.4-94.8) fl MCH (25.6-32.2) pg MCHC (32.2-35.5) g/dl RDW Std Deviation (36.4-46.3) fL Plt Count (182-369) K/mm3 MPV (9.4-12.3) fl Neut % (Auto) (34.0-71.1) % Lymph % (Auto) (19.3-51.7) % Cache % (Auto) (4.7-12.5) % Eos % (Auto) (0.7-5.8) Baso % (Auto) (0.1-1.2) % Neut # (Auto) (1.56-6.13) K/mm3 Lymph # (Auto) (1.18-3.74) K/mm3 Cache # (Auto) (0.24-0.36) K/mm3 Eos # (Auto) (0.04-0.36) K/mm3 Baso # (Auto) (0.01-0.08) K/mm3 Manual Slide Review Puncture Site Rt radial ABG pH 7.27 L (7.35-7.45) ABG pCO2 82.0 H* (35.0-45.0) mmHg ABG pO2 52.0 L (80.0-100.0) mmHg ABG HCO3 36.1 H (22.0-26.0) meq/L ABG O2 Saturation 86.2 L (96.0-97.0) % ABG Base Excess 6.8 H (-2-2.0) Obie Test Positive A-a Gradient 5 mmHg O2 Delivery Device Bipap Oxygen Flow Rate FiO2 25.00 (21.00-100.00) % Blood Gas Comments Bipap 25/10 Sodium (136-145) mEq/L Potassium (3.5-5.1) mEq/L Chloride (98-107) mEq/L Carbon Dioxide (21-32) mEq/L Anion Gap (5-15) BUN (7-18) mg/dL Creatinine (0.55-1.02) mg/dL Est Cr Clr Drug Dosing mL/min Estimated GFR (MDRD) (>60) mL/min BUN/Creatinine Ratio (14-18) Glucose (74-106) mg/dL POC Glucose (70-105) mg/dL Calcium (8.5-10.1) mg/dL Total Bilirubin (0.2-1.0) mg/dL AST (15-37) U/L ALT (14-59) U/L Alkaline Phosphatase (46-116) U/L Ammonia (11-32) umol/L Troponin I (0.00-0.056) ng/mL C-Reactive Protein (<1.0) mg/dL B-Natriuretic Peptide (0-100) pg/mL Total Protein (6.4-8.2) g/dl Albumin (3.4-5.0) g/dl Globulin gm/dL Albumin/Globulin Ratio (1-2) Urine Color (Yellow) Urine Appearance (Clear) Urine pH (5.0-8.0) Ur Specific [place] (1.005-1.030) Urine Protein (Negative) Urine Glucose (UA) (Negative) Urine Ketones (Negative) Urine Occult Blood (Negative) Urine Nitrite (Negative) Urine Bilirubin (Negative) Urine Urobilinogen (0.2-1.0) Ur Leukocyte Esterase (Negative) Urine RBC (0-5) /hpf Urine WBC (0-5) /hpf Ur Epithelial Cells Ur Squamous Epith Cells (0-5) /hpf Urine Bacteria (FEW) /hpf Urine Mucus Urine Opiates Screen (NEGATIVE) Ur Buprenorphine Scrn (NEGATIVE) Ur Oxycodone Screen (NEGATIVE) Urine Methadone Screen (NEGATIVE) Ur Propoxyphene Screen (NEGATIVE) Ur Barbiturates Screen (NEGATIVE) Ur Tricyclics Screen (NEGATIVE) Ur Phencyclidine Scrn (NEGATIVE) Ur Amphetamine Screen (NEGATIVE) U Methamphetamines Scrn (NEGATIVE) U Benzodiazepines Scrn (NEGATIVE) U Cocaine Metab Screen (NEGATIVE) U Marijuana (THC) Screen (NEGATIVE) Ethyl Alcohol (0.00) gm% Meds: Medications Discontinued Medications Generic Name Dose Route Start Last Admin Trade Name Freq PRN Reason Stop Dose Admin Furosemide 40 mg 01/06/17 19:51 01/06/17 19:57 Lasix IVPUSH 01/06/17 19:52 40 mg NOW ONE Administration Furosemide 40 mg 01/06/17 20:22 01/06/17 20:53 Lasix IVPUSH 01/06/17 20:23 40 mg NOW ONE Administration Furosemide 40 mg 01/06/17 21:29 01/06/17 21:45 Lasix IVPUSH 01/06/17 21:30 40 mg NOW ONE Administration Furosemide 40 mg 01/07/17 00:03 01/07/17 00:08 Lasix IVPUSH 01/07/17 00:04 40 mg NOW ONE Administration Ceftriaxone Sodium 1 gm/ 100 mls @ 200 mls/hr 01/06/17 22:16 01/06/17 22:34 Sodium Chloride IV 01/06/17 22:45 200 mls/hr ONETIME ONE Administration Sodium Chloride 10 ml 01/06/17 19:38 01/06/17 19:58 Saline Flush FLUSH 10 ml ASDIRECTED PRN Administration Keep Vein Open - Re-Assessments/Exams Free Text/Narrative Re-Assessment/Exam: 01/06/17 20:45. Patient did present with altered status, quite concerned for CO2 retention. I am told that she arrived on 10 L mask, [facility]. I do not know how long she was on the 10 L but they do have about a 70 minute transport from [place]. I do not know if she is on home oxygen chronically and also do not know what her mental status was prior to them putting her on the oxygen 10 L. I had her nurse turn O2 down to 3 L nasal cannula. With that sats did drop into the mid to upper 80s so O2 was turned up to 4 L pending ABGs. ABGs did show CO2 retention as suspected. PO2 88, PCO2 114.7, pH 7.14 bicarbonate 37. we have put her on BiPAP 08/11/30. Plan to recheck ABGs in about 30 minutes. Chest x-ray does show cardiomegaly, quite severe pulmonary congestion, pulmonary edema. She has been given Lasix 40 mg IV x2. Doshi catheter has been placed. 01/06/17 21:25. Sats were initially around 91% with the BiPAP and FiO2 30%. However now when I walked into the room there 78% and falling. Therefore we did show an FiO2 up to 40% and sats rapidly did come up to 90%. Repeat ABGs being drawn at this time. White blood count is normal. She's not anemic. Chemistries do show a potassium of 5.8. When I check with the lab they state that the specimen was mildly hemolyzed. I am having lab redraw potassium at this time and also will do a repeat troponin. Her initial troponin was normal. Her mental status is improving. Patient is becoming much more responsive. She is Now opening her eyes when spoken to very readily and beginning to answer simple questions. 01/06/17 21:45. Repeat arterial blood gases show very mild improvement with PCO2 now of 107.7, pH 7.16 PO2 77 bicarbonate 36.8. There's been a total of about 500 cc urine output. We did give a third dose of Lasix 40 mg IV a very short time ago. Blood pressure has been maintaining in the 120s systolic. Sats are currently running in the 90-95% range with continued BiPAP at 12/ FiO2 of 30. 01/06/17 22:15. Call for transfer to [facility], admission coordinator was busy with a different transfer. With repeat call I was able to visit with Dr. Rowan, central aisle cashier extrusion manager who does accept patient in transfer. He has looked at records from her previous admission, advises we go up to 25/10 on the BiPAP and decrease her FiO2 to 25%. We have done that and her mental status began to improve almost immediately. Will wait another 15-20 minutes and then repeat ABGs. 22:35. Checked with [facility]. She is too heavy for rotor transfer. We have called [facility] for transfer. They do not have a crew available at this time with their main crew out on her transfer. They have advised to call [facility]. We have called [facility]. They will come down and transfer the patient for us. Repeat ABGs are much improved. PCO2 82 PO2 52, pH 7.27 bicarbonate 36.1. She continues to be much more awake, answering questions appropriately. She also continues to diurese with over 1100 cc urine output since arrival. Initially there was concern for need of intubation prior to transfer. Now with improved blood gases on the more aggressive BiPAP settings and improved mental status we will transfer her with continued BiPAP in route. 23:20. [facility] is here. Their cot is too narrow to safely transport. [facility] crew is now back in town. Have called and they will be able to do the transfer. 23:50 Pt alert, maintaining sats upper 80's to low 90's. Departure - Departure Time of Disposition: 23:00 Disposition: DC/Tfer to Acute Hospital 02 Reason for Transfer *Q: Other Condition: critical Clinical Impression: Pulmonary vascular congestion Hypercapnic respiratory failure Qualifiers: Chronicity: acute on chronic Qualified Code(s): J96.22 - Acute and chronic respiratory failure with hypercapnia Acute exacerbation of CHF (congestive heart failure) Qualifiers: Congestive heart failure type: unspecified congestive heart failure type Qualified Code(s): I50.9 - Heart failure, unspecified Referrals: PCP,None [Primary Care Provider] - Forms: ED Department Discharge - My Orders Last 24 Hours: My Active Orders 01/06/17 19:39 EKG 12 Lead [EKG Documentation Completion] [RC] STAT Oxygen Therapy [RC] ASDIRECTED Peripheral IV Care [RC] . DIRECTED Chest 1V Frontal [CR] Stat Peripheral IV Insertion Adult [OM.PC] Stat 01/06/17 20:48 BiPAP [RESPCARE] Urgent 01/06/17 20:58 Urinary Catheter Assessment [RC] ASDIRECTED 01/06/17 21:00 Doshi Catheter Insertion [Insert Urinary Catheter] [OM.PC] Q24H CULTURE URINE [] Stat - Assessment/Plan Last 24 Hours: My Active Orders 01/06/17 19:39 EKG 12 Lead [EKG Documentation Completion] [RC] STAT Oxygen Therapy [RC] ASDIRECTED Peripheral IV Care [RC] . DIRECTED Chest 1V Frontal [CR] Stat Peripheral IV Insertion Adult [OM.PC] Stat 01/06/17 20:48 BiPAP [RESPCARE] Urgent 01/06/17 20:58 Urinary Catheter Assessment [RC] ASDIRECTED 01/06/17 21:00 Doshi Catheter Insertion [Insert Urinary Catheter] [OM.PC] Q24H CULTURE URINE [RM] Stat
[2017-01-06] MEDS ORDERED: cefTRIAXone 1 GM in Sodium Chloride 0.9% 100 ML IV ONE (22:16)
[2017-01-07] MEDS ORDERED: Furosemide 40 MG/4 ML VIAL IVPUSH ONE (00:03)
--- NOTE | 2017-01-07 10:54 | CR ---
Chest: Portable view of the chest was obtained. Comparison: Previous chest x-ray of 11/21/16. Heart is enlarged. Pulmonary vessels are diffusely increased. Bony structures are grossly intact. Impression: 1. Cardiomegaly. Pulmonary vascular congestion is seen. Some of this congestion may be chronic. Diagnostic code #3
== END 2017-01-07 00:25 ==
LOC: JD.ED 19:20
DX: J96.22 Acute and chronic respiratory failure with hypercapnia (principal); I11.0 Hypertensive heart disease with heart failure; I50.9 Heart failure, unspecified; K21.9 Gastro-esophageal reflux disease without esophagitis; Z87.820 Personal history of traumatic brain injury; E66.9 Obesity, unspecified; Z68.30 Body mass index [BMI] 30.0-30.9, adult; Z90.49 Acquired absence of other specified parts of digestive tract; Z90.5 Acquired absence of kidney; Z79.899 Other long term (current) drug therapy
CPT/HCPCS: 36415; 36600; 51702; 71010; 80053; 80306; 81001; 82140; 82803; 82962; 83880; 84132; 84484; 85025; 86140; 87086; 87088; 87186; 93005; 94660; 96365; 96375; 96376; 99285; G0480; J0696; J1940; J7030; J7050

== ENCOUNTER 2017-05-09 00:23 | Emergency (ER) | payer MEDICAID, SELFPAY ==
[2017-05-09] MEDS ORDERED: Sodium Chloride 0.9% 10 ML Syringe FLUSH PRN (00:42)
[2017-05-09] MEDS ORDERED: Albuterol/Ipratropium 3.0-0.5 MG/3 ML Neb Soln NEB ONE (00:43)
--- NOTE | 2017-05-09 02:06 | EDM.PDOC ---
ED HPI GENERAL MEDICAL PROBLEM - General Chief Complaint: Respiratory Problem Stated Complaint: [facility] Time Seen by Provider: 05/09/17 00:32 Source of Information: Reports: Patient, EMS History Limitations: Reports: No Limitations - History of Present Illness INITIAL COMMENTS - FREE TEXT/NARRATIVE: The patient presents with increased shortness of breath and cough for the past few days. She has a subjective fever and chills. She is on home oxygen and she has needed more. She has a history of CHF, COPD, and pneumonia. She was seen here in January and she was intubated and sent to [place]. She denies chest pain. She has no abdominal pain, nausea or vomiting. She has no dysuria. Onset: Gradual Duration: Day(s): Severity: Moderate Improves with: Reports: None Worsens with: Reports: Movement Associated Symptoms: Reports: Cough, Fever/Chills, Shortness of Breath. Denies : Chest Pain, Nausea/Vomiting - Related Data Allergies Allergy/AdvReac Type Severity Reaction Status Date / Time No Known Allergies Allergy Verified 05/09/17 00:27 Home Meds: Home Meds Albuterol/Ipratropium [DuoNeb 3.0-0.5 MG/3 ML] 3 ml NEB Q4H PRN #90 neb [Rx] Fluticasone/Salmeterol [Advair Diskus 250-50] 1 puff INH BID #1 inhaler [Rx] Furosemide [Lasix] 40 mg PO BID 11/21/16 [History] Omeprazole 1 tab PO DAILY 11/21/16 [History] Albuterol/Ipratropium [DuoNeb 3.0-0.5 MG/3 ML] 3 ml NEB Q4HRRT PRN #25 neb 05/09 [Rx] Prednisone [IJD: predniSONE] 40 mg PO WITHBREAKFAST #10 tab 05/09/17 [Rx] Past Medical History HEENT History: Reports: Impaired Vision Other HEENT History: GLASSES Cardiovascular History: Reports: Heart Failure, Hypertension Respiratory History: Reports: COPD, Pneumonia, Recurrent, SOB Gastrointestinal History: Reports: GERD, GI Bleed, Hemorrhoids Genitourinary History: Reports: UTI, 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 she has several pitting scars to her abdomen some small round areas that are darker in color ...looks like possibly boil scars. - Past Surgical History GI Surgical History: Reports: Cholecystectomy Female Surgical History: Reports: D&C, Nephrectomy Social & Family History - Family History Family Medical History: Noncontributory Endocrine/Metabolic: Reports: Diabetes, type II - Tobacco Use Smoking Status *Q: Current Every Day Smoker Years of Tobacco use: 35 Packs/Tins Daily: 0.5 Used Tobacco, but Quit: No Second Hand Smoke Exposure: No - Caffeine Use Caffeine Use: Reports: None - Recreational Drug Use Recreational Drug Use: No - Living Situation & Occupation Occupation: Disabled ED ROS GENERAL - Review of Systems Review Of Systems: See Below Constitutional: Reports: Fever, Chills HEENT: Reports: No Symptoms Respiratory: Reports: Shortness of Breath, Cough Cardiovascular: Reports: No Symptoms Endocrine: Reports: No Symptoms GI/Abdominal: Reports: No Symptoms : Reports: No Symptoms Musculoskeletal: Reports: No Symptoms ED EXAM, GENERAL - Physical Exam Exam: See Below Exam Limited By: No Limitations General Appearance: Alert, No Apparent Distress Ears: Normal External Exam Nose: Normal Inspection Head: Atraumatic, Normocephalic Neck: Normal Inspection Respiratory/Chest: No Respiratory Distress, Decreased Breath Sounds, Wheezing Cardiovascular: Regular Rate, Rhythm, No Edema, No Murmur GI/Abdominal: Soft, Non-Tender, No Organomegaly, No Mass Back Exam: Normal Inspection EKG INTERPRETATION EKG Date: 05/09/17 Time: 00:29 Rhythm: NSR Rate (Beats/Min): 60 [place]: Normal P-Wave: Present QRS: Normal ST-T: Normal QT: Normal Course - Vital Signs Last Recorded V/S: Last Vital Signs Temp 97.1 F 05/09/17 00:24 Pulse 60 05/09/17 00:24 Resp 25 H 05/09/17 00:24 BP 148/48 H 05/09/17 00:24 Pulse Ox 96 05/09/17 00:51 - Orders/Labs/Meds Orders: Active Orders 24 hr Category Date Time Status Cardiac Monitoring [RC] . DIRECTED Care 05/09/17 00:42 Active EKG 12 Lead [EKG Documentation Completion] [RC] STAT Care 05/09/17 00:34 Active Oxygen Therapy [RC] PRN Care 05/09/17 00:42 Active Peripheral IV Care [RC] . DIRECTED Care 05/09/17 00:43 Active RT Aerosol Therapy [RC] ASDIRECTED Care 05/09/17 00:43 Active Chest 1V Frontal [CR] Stat Exams 05/09/17 00:43 Taken Sodium Chloride 0.9% [Saline Flush] Med 05/09/17 00:42 Active 10 ml FLUSH ASDIRECTED PRN Peripheral IV Insertion Adult [OM.PC] Stat Oth 05/09/17 00:42 Ordered Medication Orders Sodium Chloride (Saline Flush) 10 ml FLUSH ASDIRECTED PRN PRN Reason: Keep Vein Open Last Admin: 05/09/17 00:55 Dose: 10 ml Labs: Laboratory Tests 05/09/17 05/09/17 Range/Units 00:50 00:50 WBC 7.62 (3.98-10.04) K/mm3 RBC 4.83 (3.98-5.22) M/mm3 Hgb 13.9 (11.2-15.7) gm/L Hct 42.7 (34.1-44.9) % MCV 88.4 (79.4-94.8) fl MCH 28.8 (25.6-32.2) pg MCHC 32.6 (32.2-35.5) g/dl RDW Std Deviation 54.0 H (36.4-46.3) fL Plt Count 129 L (182-369) K/mm3 MPV 11.2 (9.4-12.3) fl Neut % (Auto) 69.5 (34.0-71.1) % Lymph % (Auto) 18.9 L (19.3-51.7) % [place] % (Auto) 10.2 (4.7-12.5) % Eos % (Auto) 1.0 (0.7-5.8) Baso % (Auto) 0.1 (0.1-1.2) % Neut # (Auto) 5.29 (1.56-6.13) K/mm3 Lymph # (Auto) 1.44 (1.18-3.74) K/mm3 [place] # (Auto) 0.78 H (0.24-0.36) K/mm3 Eos # (Auto) 0.08 (0.04-0.36) K/mm3 Baso # (Auto) 0.01 (0.01-0.08) K/mm3 Sodium 137 (136-145) mEq/L Potassium 3.8 (3.5-5.1) mEq/L Chloride 104 (98-107) mEq/L Carbon Dioxide 26 (21-32) mEq/L Anion Gap 10.8 (5-15) BUN 18 (7-18) mg/dL Creatinine 1.2 H (0.55-1.02) mg/dL Est Cr Clr Drug Dosing 47.36 mL/min Estimated GFR (MDRD) 47 (>60) mL/min BUN/Creatinine Ratio 15.0 (14-18) Glucose 135 H (74-106) mg/dL Calcium 8.8 (8.5-10.1) mg/dL Total Bilirubin 0.8 (0.2-1.0) mg/dL AST 16 (15-37) U/L ALT 21 (14-59) U/L Alkaline Phosphatase 89 (46-116) U/L Troponin I < 0.017 (0.00-0.056) ng/mL NT-Pro-B Natriuret Pep 701 H (0-125) pg/mL Total Protein 8.3 H (6.4-8.2) g/dl Albumin 3.1 L (3.4-5.0) g/dl Globulin 5.2 gm/dL Albumin/Globulin Ratio 0.6 L (1-2) Meds: Medications Generic Name Dose Route Start Last Admin Trade Name Freq PRN Reason Stop Dose Admin Sodium Chloride 10 ml 05/09/17 00:42 05/09/17 00:55 Saline Flush FLUSH 10 ml ASDIRECTED PRN Administration Keep Vein Open Discontinued Medications Generic Name Dose Route Start Last Admin Trade Name Freq PRN Reason Stop Dose Admin Albuterol/Ipratropium 3 ml 05/09/17 00:43 05/09/17 00:49 Duoneb 3.0-0.5 Mg/3 Ml NEB 05/09/17 00:44 3 ml ONETIME ONE Administration - Re-Assessments/Exams Free Text/Narrative Re-Assessment/Exam: 05/09/17 02:10 I ordered oxygen, IV saline lock, labs, EKG, CXR and a duoneb. 05/09/17 02:11 Her EKG shows a NSR with no acute changes. Her CXR shows cardiomegaly with congestive changes. There is not much of a change from prior CXR. Her CBC looks good. Her creatinine was 1.2. Her glucose was 135. Her troponin was negative. Her BNP was 701. 05/09/17 02:16 She is breathing much better and she sounds better. I feel this is an exacerbation of her COPD. I will give her a dose of solu-medrol 125mg IV and a prescription for more. I will also give her a prescription for some duoneb. Departure - Departure Time of Disposition: 02:20 Disposition: Home, Self-Care 01 Condition: Good Clinical Impression: COPD exacerbation - Discharge Information Prescriptions: Albuterol/Ipratropium [DuoNeb 3.0-0.5 MG/3 ML] 3 ml NEB Q4HRRT PRN #25 neb PRN Reason: Shortness Of Breath Prednisone [IJD: predniSONE] 40 mg PO WITHBREAKFAST #10 tab Referrals: PCP,None [Primary Care Provider] - Forms: ED Department Discharge Additional Instructions: Take the steroid daily for 5 days. Take your medications as prescribed. You may use the duoneb in place of any albuterol inhalers. You can do that every 4 to 6 hours as needed for shortness of breath or wheezing. See you doctor this week and please return if you are worse. - My Orders Last 24 Hours: My Active Orders 05/09/17 00:34 EKG 12 Lead [EKG Documentation Completion] [RC] STAT 05/09/17 00:42 Cardiac Monitoring [RC] . DIRECTED Oxygen Therapy [RC] PRN Sodium Chloride 0.9% [Saline Flush] 10 ml FLUSH ASDIRECTED PRN Peripheral IV Insertion Adult [OM.PC] Stat 05/09/17 00:43 Peripheral IV Care [RC] . DIRECTED RT Aerosol Therapy [RC] ASDIRECTED Chest 1V Frontal [CR] Stat - Assessment/Plan Last 24 Hours: My Active Orders 05/09/17 00:34 EKG 12 Lead [EKG Documentation Completion] [RC] STAT 05/09/17 00:42 Cardiac Monitoring [RC] . DIRECTED Oxygen Therapy [RC] PRN Sodium Chloride 0.9% [Saline Flush] 10 ml FLUSH ASDIRECTED PRN Peripheral IV Insertion Adult [OM.PC] Stat 05/09/17 00:43 Peripheral IV Care [RC] . DIRECTED RT Aerosol Therapy [RC] ASDIRECTED Chest 1V Frontal [CR] Stat
[2017-05-09] MEDS ORDERED: methylPREDNISolone Sodium Succinate 125 MG/2 ML SDV IVPUSH ONE (02:18)
[2017-05-09 02:28] VITALS: BP 141/48
--- NOTE | 2017-05-09 17:52 | CR ---
Chest: Portable view of the chest was obtained. Comparison: Previous chest x-ray of 01/06/17. Heart is enlarged. Upper mediastinum is normal. Mild areas of scattered atelectasis are seen. Pulmonary vessel show mild chronic congestion. Bony structures are grossly intact. Impression: 1. Cardiomegaly with pulmonary vascular congestion which is likely chronic. 2. Mild scattered atelectasis. Diagnostic code #3
== END 2017-05-09 02:35 | disposition home or self-care (01) ==
LOC: JD.ED 00:23
DX: J44.1 Chronic obstructive pulmonary disease with (acute) exacerbation (principal); I11.0 Hypertensive heart disease with heart failure; I50.9 Heart failure, unspecified; E66.9 Obesity, unspecified; F17.210 Nicotine dependence, cigarettes, uncomplicated; Z79.899 Other long term (current) drug therapy; Z87.440 Personal history of urinary (tract) infections; Z87.01 Personal history of pneumonia (recurrent); Z90.49 Acquired absence of other specified parts of digestive tract; Z68.44 Body mass index [BMI] 60.0-69.9, adult
CPT/HCPCS: 36415; 71010; 80053; 83880; 84484; 85025; 93005; 94664; 96374; 99285; J2930; J7050; 99284

== ENCOUNTER 2017-08-15 03:46 | Emergency (ER) | payer SELFPAY ==
[2017-08-15 03:57] VITALS: BP 110/56
--- NOTE | 2017-08-15 04:16 | EDM.PDOC ---
ED HPI GENERAL MEDICAL PROBLEM - General Chief Complaint: Chest Pain Stated Complaint: [facility] Time Seen by Provider: 08/15/17 04:00 - History of Present Illness INITIAL COMMENTS - FREE TEXT/NARRATIVE: 52-year-old female presents emergency room with chest pain. Patient developed chest pain about 3-1/2 hours ago. It is resolved on its own this point the patient came down via EMS gave her a breathing treatment, and 4 baby aspirin. The patient has bad lung disease heart failure COPD, she uses O2 at home 1-2 L she says she has cut back on her smoking. No history of diabetes. Tonight's chest pain started in the left chest radiated to both arms. And then resolved in route to here. Treatments FREE LANCE MODEL: Reports: Aspirin, IV/IO, Oxygen, Other (see below) Other Treatments FREE LANCE MODEL: albuterol,duoneb Left Chest Pain Score (Numeric/FACES): 3 - Related Data Allergies Allergy/AdvReac Type Severity Reaction Status Date / Time No Known Allergies Allergy Verified 08/15/17 03:51 Home Meds: Home Meds Albuterol/Ipratropium [DuoNeb 3.0-0.5 MG/3 ML] 3 ml NEB Q4H PRN #90 neb [Rx] Fluticasone/Salmeterol [Advair Diskus 250-50] 1 puff INH BID #1 inhaler [Rx] Furosemide [Lasix] 40 mg PO BID 11/21/16 [History] Omeprazole 1 tab PO DAILY 11/21/16 [History] Albuterol/Ipratropium [DuoNeb 3.0-0.5 MG/3 ML] 3 ml NEB Q4HRRT PRN #25 neb 05/09 [Rx] Prednisone [IJD: predniSONE] 40 mg PO WITHBREAKFAST #10 tab 05/09/17 [Rx] Albuterol/Ipratropium [DuoNeb 3.0-0.5 MG/3 ML] 3 ml NEB Q6H #30 neb 08/15/17 [Rx ] predniSONE 60 mg PO WITHBREAKFAST #20 tablet 08/15/17 [Rx] Past Medical History HEENT History: Reports: Impaired Vision Other HEENT History: GLASSES Cardiovascular History: Reports: Heart Failure, Hypertension Respiratory History: Reports: COPD, Pneumonia, Recurrent, SOB Gastrointestinal History: Reports: GERD, GI Bleed, Hemorrhoids Genitourinary History: Reports: UTI, 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 she has several pitting scars to her abdomen some small round areas that are darker in color ...looks like possibly boil scars. - Past Surgical History GI Surgical History: Reports: Cholecystectomy Female Surgical History: Reports: D&C, Nephrectomy Social & Family History - Family History Family Medical History: Noncontributory Endocrine/Metabolic: Reports: Diabetes, type II - Tobacco Use Smoking Status *Q: Current Every Day Smoker Years of Tobacco use: 35 Packs/Tins Daily: 0.5 Used Tobacco, but Quit: No Second Hand Smoke Exposure: No - Caffeine Use Caffeine Use: Reports: None - Recreational Drug Use Recreational Drug Use: No - Living Situation & Occupation Occupation: Disabled ED ROS GENERAL - Review of Systems Review Of Systems: See Below Constitutional: Reports: No Symptoms HEENT: Reports: No Symptoms Respiratory: Reports: Shortness of Breath, Wheezing, Cough. Denies: Sputum Cardiovascular: Reports: Chest Pain GI/Abdominal: Reports: No Symptoms : Reports: No Symptoms Musculoskeletal: Reports: No Symptoms Skin: Reports: No Symptoms Neurological: Reports: No Symptoms ED EXAM, GENERAL - Physical Exam Exam: See Below Exam Limited By: No Limitations General Appearance: Alert, No Apparent Distress Eye Exam: Bilateral Eye: Normal Inspection Ears: Normal External Exam, Normal Canal, Normal TMs Nose: Normal Inspection, Normal Mucosa Throat/Mouth: Normal Inspection, Normal Lips, Normal Oropharynx, Normal Voice, No Airway Compromise Head: Atraumatic, Normocephalic Neck: Normal Inspection, Supple, Non-Tender, Full Range of Motion. No: Lymphadenopathy (L), Lymphadenopathy (R) Respiratory/Chest: No Respiratory Distress, Lungs Clear, Decreased Breath Sounds , Crackles (She has crackles in the bases) GI/Abdominal: Normal Bowel Sounds, Soft, Non-Tender, Other (Morbid obesity) Back Exam: Normal Inspection. No: CVA Tenderness (L), CVA Tenderness (R) Extremities: Other (2+ pitting edema) Neurological: Alert, Oriented, Normal Cognition Course - Vital Signs Last Recorded V/S: Last Vital Signs Temp 36.6 C 08/15/17 03:52 Pulse 59 L 08/15/17 04:47 Resp 13 08/15/17 03:52 BP 110/56 L 08/15/17 03:52 Pulse Ox 92 L 08/15/17 10:27 - Orders/Labs/Meds Labs: Laboratory Tests 08/15/17 08/15/17 08/15/17 Range/Units 04:12 04:12 04:30 WBC 9.55 (3.98-10.04) K/mm3 RBC 5.09 (3.98-5.22) M/mm3 Hgb 14.4 (11.2-15.7) gm/L Hct 46.0 H (34.1-44.9) % MCV 90.4 (79.4-94.8) fl MCH 28.3 (25.6-32.2) pg MCHC 31.3 L (32.2-35.5) g/dl RDW Std Deviation 51.9 H (36.4-46.3) fL Plt Count 148 L (182-369) K/mm3 MPV 10.8 (9.4-12.3) fl Neutrophils % (Manual) 48 (40-60) % Band Neutrophils % 0 (0-10) % Lymphocytes % (Manual) 49 H (20-40) % Atypical Lymphs % 0 % Monocytes % (Manual) 2 (2-10) % Eosinophils % (Manual) 1 (0.7-5.8) % Basophils % (Manual) 0 L (0.1-1.2) Platelet Estimate Adequate RBC Morph Comment Normal Puncture Site Lt radial ABG pH 7.28 L (7.35-7.45) ABG pCO2 49.7 H (35.0-45.0) mmHg ABG pO2 62.0 L (80.0-100.0) mmHg ABG HCO3 22.5 (22.0-26.0) meq/L ABG O2 Saturation 92.0 L (96.0-97.0) % ABG Base Excess -4.2 L (-2-2.0) Obie Test Positive A-a Gradient 10 mmHg O2 Delivery Device Room air FiO2 21.00 (21.00-100.00) % Sodium 142 (136-145) mEq/L Potassium 3.9 (3.5-5.1) mEq/L Chloride 108 H (98-107) mEq/L Carbon Dioxide 25 (21-32) mEq/L Anion Gap 12.9 (5-15) BUN 9 (7-18) mg/dL Creatinine 1.0 (0.55-1.02) mg/dL Est Cr Clr Drug Dosing 60.91 mL/min Estimated GFR (MDRD) 58 (>60) mL/min BUN/Creatinine Ratio 9.0 L (14-18) Glucose 145 H (74-106) mg/dL Calcium 8.3 L (8.5-10.1) mg/dL Total Bilirubin 0.5 (0.2-1.0) mg/dL AST 29 (15-37) U/L ALT 43 (14-59) U/L Alkaline Phosphatase 91 (46-116) U/L Troponin I < 0.017 (0.00-0.056) ng/mL NT-Pro-B Natriuret Pep 495 H (0-125) pg/mL Total Protein 7.8 (6.4-8.2) g/dl Albumin 3.1 L (3.4-5.0) g/dl Globulin 4.7 gm/dL Albumin/Globulin Ratio 0.7 L (1-2) 08/15/ Range/Units 06:38 WBC (3.98-10.04) K/mm3 RBC (3.98-5.22) M/mm3 Hgb (11.2-15.7) gm/L Hct (34.1-44.9) % MCV (79.4-94.8) fl MCH (25.6-32.2) pg MCHC (32.2-35.5) g/dl RDW Std Deviation (36.4-46.3) fL Plt Count (182-369) K/mm3 MPV (9.4-12.3) fl Neutrophils % (Manual) (40-60) % Band Neutrophils % (0-10) % Lymphocytes % (Manual) (20-40) % Atypical Lymphs % % Monocytes % (Manual) (2-10) % Eosinophils % (Manual) (0.7-5.8) % Basophils % (Manual) (0.1-1.2) Platelet Estimate RBC Morph Comment Puncture Site ABG pH (7.35-7.45) ABG pCO2 (35.0-45.0) mmHg ABG pO2 (80.0-100.0) mmHg ABG HCO3 (22.0-26.0) meq/L ABG O2 Saturation (96.0-97.0) % ABG Base Excess (-2-2.0) Obie Test A-a Gradient mmHg O2 Delivery Device FiO2 (21.00-100.00) % Sodium (136-145) mEq/L Potassium (3.5-5.1) mEq/L Chloride (98-107) mEq/L Carbon Dioxide (21-32) mEq/L Anion Gap (5-15) BUN (7-18) mg/dL Creatinine (0.55-1.02) mg/dL Est Cr Clr Drug Dosing mL/min Estimated GFR (MDRD) (>60) mL/min BUN/Creatinine Ratio (14-18) Glucose (74-106) mg/dL Calcium (8.5-10.1) mg/dL Total Bilirubin (0.2-1.0) mg/dL AST (15-37) U/L ALT (14-59) U/L Alkaline Phosphatase (46-116) U/L Troponin I 0.017 (0.00-0.056) ng/mL NT-Pro-B Natriuret Pep (0-125) pg/mL Total Protein (6.4-8.2) g/dl Albumin (3.4-5.0) g/dl Globulin gm/dL Albumin/Globulin Ratio (1-2) Meds: Medications Discontinued Medications Generic Name Dose Route Start Last Admin Trade Name Freq PRN Reason Stop Dose Admin Albuterol/Ipratropium 3 ml 08/15/17 04:36 08/15/17 04:46 Duoneb 3.0-0.5 Mg/3 Ml NEB 08/15/17 04:37 3 ml ONETIME ONE Administration Albuterol/Ipratropium 3 ml 08/15/17 10:11 08/15/17 10:27 Duoneb 3.0-0.5 Mg/3 Ml NEB 08/15/17 10:12 3 ml ONETIME ONE Administration Prednisone 60 mg 08/15/17 05:40 08/15/17 05:45 Prednisone PO 08/15/17 05:41 60 mg ONETIME ONE Administration - Re-Assessments/Exams Free Text/Narrative Re-Assessment/Exam: 08/15/17 06:14 Patient is doing really good at this point she had a nebulizer done roughly an hour ago and this really helped out as well she is feeling good at this time no more chest pain. Labs unrevealing we'll check a second troponin now. Anticipate discharge on oral prednisone a prescription for DuoNeb's. At some point the patient should be set up for a heart stress test. 08/15/17 07:04 Patient continues to do well awaiting second troponin Departure - Departure Time of Disposition: 08:00 Disposition: Home, Self-Care 01 Clinical Impression: Atypical chest pain, Asthma exacerbation with COPD (chronic obstructive pulmonary disease) - Discharge Information Prescriptions: Albuterol/Ipratropium [DuoNeb 3.0-0.5 MG/3 ML] 3 ml NEB Q6H #30 neb predniSONE 60 mg PO WITHBREAKFAST #20 tablet Instructions: Chronic Obstructive Pulmonary Disease, [id number], Nonspecific Chest Pain Referrals: PCP,Unknown [Ordering Only Provider] - Forms: ED Department Discharge Additional Instructions: Return to the emergency room with any questions problems worsening symptoms. Follow-up with your regular provider this week for recheck. The need to schedule you for a stress test to be sure your heart has adequate circulation to it. Discuss with them also modifications to your breathing treatments. You have been discharged with DuoNeb's to use in your home nebulizer. And you have been given a five-day course of prednisone 60 mg every morning to start tomorrow morning.
[2017-08-15] MEDS ORDERED: Albuterol/Ipratropium 3.0-0.5 MG/3 ML Neb Soln NEB ONE ×2 (04:36→10:11)
[2017-08-15] MEDS ORDERED: predniSONE 20 MG Tab PO ONE (05:40)
--- NOTE | 2017-08-15 07:52 | CR ---
Chest: Portable view of the chest was obtained. Comparison: Prior chest x-ray of 05/09/17. Heart is enlarged. Pulmonary vessels are mildly congested which appear stable. Lungs otherwise are clear. Bony structures are grossly intact. Impression: 1. Stable cardiomegaly. 2. Increased pulmonary vascular congestion which appears to be chronic and stable from prior exam. Diagnostic code #2
== END 2017-08-15 12:46 | disposition home or self-care (01) ==
LOC: JD.ED 03:46 → SUPCPDRO 03:46 → JD.ED 12:46
DX: J45.901 Unspecified asthma with (acute) exacerbation (principal); J44.9 Chronic obstructive pulmonary disease, unspecified; I11.0 Hypertensive heart disease with heart failure; I50.9 Heart failure, unspecified; F17.210 Nicotine dependence, cigarettes, uncomplicated; Z79.899 Other long term (current) drug therapy; Z99.81 Dependence on supplemental oxygen
CPT/HCPCS: 36415; 36600; 71010; 80053; 82803; 83880; 84484; 85025; 93005; 94640; 99285; A9270

== ENCOUNTER 2017-11-09 17:26 | Inpatient (IN) | payer MEDICAID, OTHER ==
--- NOTE | 2017-11-09 18:56 | EDM.PDOC ---
ED HPI GENERAL MEDICAL PROBLEM - General Chief Complaint: Respiratory Problem Stated Complaint: [facility] Time Seen by Provider: 11/09/17 18:47 Source of Information: Reports: Patient History Limitations: Reports: Other (Patient does not offer up medical history, will answer direct questions) - History of Present Illness INITIAL COMMENTS - FREE TEXT/NARRATIVE: Patient is brought here today by the [facility] for dyspnea and cough with hemoptysis. Patient does have a long history of COPD as well as coronary artery disease. She is chronically on oxygen at 2.5 L per nasal cannula. Patient has a history of hospitalizations for her COPD and has needed intubation frequently previously. Patient does continue to smoke cigarettes, she reports that she is down to 4 per day. - Related Data Allergies Allergy/AdvReac Type Severity Reaction Status Date / Time No Known Allergies Allergy Verified 11/09/17 17:35 Home Meds: Home Meds Fluticasone/Salmeterol [Advair Diskus 250-50] 1 puff INH BID #1 inhaler [Rx] Furosemide [Lasix] 40 mg PO BID 11/21/16 [History] Omeprazole 1 tab PO DAILY 11/21/16 [History] Albuterol/Ipratropium [DuoNeb 3.0-0.5 MG/3 ML] 3 ml NEB Q6H #30 neb 08/15/17 [Rx ] Aspirin 81 mg PO DAILY 11/09/17 [History] Past Medical History HEENT History: Reports: Impaired Vision Other HEENT History: GLASSES Cardiovascular History: Reports: Heart Failure, Hypertension Respiratory History: Reports: COPD, Pneumonia, Recurrent, SOB Gastrointestinal History: Reports: GERD, GI Bleed, Hemorrhoids Genitourinary History: Reports: UTI, Recurrent Other Genitourinary History: Nephrectomy [employer] History: Reports: Other OB/BYN History: 3 children vaginally Musculoskeletal History: Reports: Arthritis, Fracture Other Musculoskeletal History: right pinky Neurological History: Reports: Brain Injury, Head Trauma, Migraines Endocrine/Metabolic History: Reports: Obesity/BMI 30+ Oncologic (Cancer) History: Reports: Other (See Below) Other Oncologic History: Kidney Other Dermatologic History: 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 she has several pitting scars to her abdomen some small round areas that are darker in color ...looks like possibly boil scars. - Past Surgical History GI Surgical History: Reports: Cholecystectomy Female Surgical History: Reports: D&C, Nephrectomy Social & Family History - Family History Family Medical History: Noncontributory Endocrine/Metabolic: Reports: Diabetes, type II - Tobacco Use Smoking Status *Q: Current Every Day Smoker Years of Tobacco use: 15 Packs/Tins Daily: 0.4 Used Tobacco, but Quit: No Second Hand Smoke Exposure: No - Caffeine Use Caffeine Use: Reports: Coffee - Recreational Drug Use Recreational Drug Use: No - Living Situation & Occupation Occupation: Disabled ED ROS GENERAL - Review of Systems Review Of Systems: See Below Constitutional: Reports: Chills, Malaise, Weakness, Fatigue. Denies: Fever, Decreased Appetite HEENT: Denies: Sinus Problem, Throat Pain Respiratory: Reports: Shortness of Breath, Wheezing, Cough, Sputum, Hemoptysis. Denies: Pleuritic Chest Pain Cardiovascular: Reports: Edema. Denies: Chest Pain, Blood Pressure Problem, Lightheadedness Endocrine: Reports: Fatigue GI/Abdominal: Reports: No Symptoms Musculoskeletal: Reports: No Symptoms Skin: Reports: No Symptoms Neurological: Reports: No Symptoms Psychiatric: Reports: No Symptoms ED EXAM, GENERAL - Physical Exam Exam: See Below General Appearance: Alert, WD/WN, Mild Distress Ears: Normal External Exam, Normal Canal, Normal TMs Throat/Mouth: Normal Inspection, Normal Oropharynx Neck: Normal Inspection, Supple, Non-Tender. No: Lymphadenopathy (L), Lymphadenopathy (R) Respiratory/Chest: No Accessory Muscle Use, Chest Non-Tender, Respiratory Distress (Increased respiratory effort), Decreased Breath Sounds, Wheezing ( Moderate, diffuse bilaterally.), Prolonged Expiration. No: Crackles, Rales Cardiovascular: Regular Rate, Rhythm, No Murmur GI/Abdominal: Normal Bowel Sounds, Soft, Non-Tender Neurological: Alert, Oriented Psychiatric: Normal Affect, Normal Mood Skin Exam: Warm, Dry, Intact EKG INTERPRETATION EKG Date: 11/09/17 Time: 19:23 Rhythm: NSR Rate (Beats/Min): 58 Course - Vital Signs Last Recorded V/S: Last Vital Signs Temp 97.2 F 11/09/17 17:31 Pulse 59 L 11/09/17 17:31 Resp 20 11/09/17 17:31 BP 150/46 H 11/09/17 17:31 Pulse Ox 75 L 11/09/17 19:54 - Orders/Labs/Meds Orders: Active Orders 24 hr Category Date Time Status EKG 12 Lead [EKG Documentation Completion] [RC] STAT Care 11/09/17 18:53 Active RT Aerosol Therapy [RC] ASDIRECTED Care 11/09/17 19:44 Active CXR [Chest 2V] [CR] Stat Exams 11/09/17 18:54 Taken Labs: Laboratory Tests 11/09/17 11/09/17 11/09/17 Range/Units 17:30 17:30 17:30 WBC 8.96 (3.98-10.04) K/mm3 RBC 4.95 (3.98-5.22) M/mm3 Hgb 14.5 (11.2-15.7) gm/L Hct 47.5 H (34.1-44.9) % MCV 96.0 H (79.4-94.8) fl MCH 29.3 (25.6-32.2) pg MCHC 30.5 L (32.2-35.5) g/dl RDW Std Deviation 57.0 H (36.4-46.3) fL Plt Count 105 L (182-369) K/mm3 MPV 11.6 (9.4-12.3) fl Neutrophils % (Manual) 71 H (40-60) % Band Neutrophils % 1 (0-10) % Lymphocytes % (Manual) 12 L (20-40) % Atypical Lymphs % 4 % Monocytes % (Manual) 10 (2-10) % Eosinophils % (Manual) 1 (0.7-5.8) % Basophils % (Manual) 1 (0.1-1.2) Platelet Estimate Decreased Plt Morphology Comment Normal Polychromasia 1+ slight Poikilocytosis 1+ slight Anisocytosis 1+ slight Microcytosis 1+ slight Macrocytosis 1+ slight RBC Morph Comment Abnormal Puncture Site ABG pH (7.35-7.45) ABG pCO2 (35.0-45.0) mmHg ABG pO2 (80.0-100.0) mmHg ABG HCO3 (22.0-26.0) meq/L ABG O2 Saturation (96.0-97.0) % ABG Base Excess (-2-2.0) Obie Test A-a Gradient mmHg O2 Delivery Device Oxygen Flow Rate FiO2 (21.00-100.00) % Sodium 139 (136-145) mEq/L Potassium 4.5 (3.5-5.1) mEq/L Chloride 102 (98-107) mEq/L Carbon Dioxide 31 (21-32) mEq/L Anion Gap 10.5 (5-15) BUN 11 (7-18) mg/dL Creatinine 1.0 (0.55-1.02) mg/dL Est Cr Clr Drug Dosing 53.82 mL/min Estimated GFR (MDRD) 58 (>60) mL/min BUN/Creatinine Ratio 11.0 L (14-18) Glucose 95 (74-106) mg/dL Calcium 8.3 L (8.5-10.1) mg/dL Total Bilirubin 0.7 (0.2-1.0) mg/dL AST 33 (15-37) U/L ALT 33 (14-59) U/L Alkaline Phosphatase 95 (46-116) U/L Troponin I 0.022 (0.00-0.056) ng/mL C-Reactive Protein 4.0 H* (<1.0) mg/dL NT-Pro-B Natriuret Pep 1144 H (0-125) pg/mL Total Protein 7.9 (6.4-8.2) g/dl Albumin 3.0 L (3.4-5.0) g/dl Globulin 4.9 gm/dL Albumin/Globulin Ratio 0.6 L (1-2) 11/09/17 Range/Units 19:25 WBC (3.98-10.04) K/mm3 RBC (3.98-5.22) M/mm3 Hgb (11.2-15.7) gm/L Hct (34.1-44.9) % MCV (79.4-94.8) fl MCH (25.6-32.2) pg MCHC (32.2-35.5) g/dl RDW Std Deviation (36.4-46.3) fL Plt Count (182-369) K/mm3 MPV (9.4-12.3) fl Neutrophils % (Manual) (40-60) % Band Neutrophils % (0-10) % Lymphocytes % (Manual) (20-40) % Atypical Lymphs % % Monocytes % (Manual) (2-10) % Eosinophils % (Manual) (0.7-5.8) % Basophils % (Manual) (0.1-1.2) Platelet Estimate Plt Morphology Comment Polychromasia Poikilocytosis Anisocytosis Microcytosis Macrocytosis RBC Morph Comment Puncture Site Rt radial ABG pH 7.30 L (7.35-7.45) ABG pCO2 63.7 H (35.0-45.0) mmHg ABG pO2 57.0 L (80.0-100.0) mmHg ABG HCO3 30.2 H (22.0-26.0) meq/L ABG O2 Saturation 90.0 L (96.0-97.0) % ABG Base Excess 2.4 H (-2-2.0) Obie Test Positive A-a Gradient 56 mmHg O2 Delivery Device Cannula Oxygen Flow Rate 2.5 FiO2 30.00 (21.00-100.00) % Sodium (136-145) mEq/L Potassium (3.5-5.1) mEq/L Chloride (98-107) mEq/L Carbon Dioxide (21-32) mEq/L Anion Gap (5-15) BUN (7-18) mg/dL Creatinine (0.55-1.02) mg/dL Est Cr Clr Drug Dosing mL/min Estimated GFR (MDRD) (>60) mL/min BUN/Creatinine Ratio (14-18) Glucose (74-106) mg/dL Calcium (8.5-10.1) mg/dL Total Bilirubin (0.2-1.0) mg/dL AST (15-37) U/L ALT (14-59) U/L Alkaline Phosphatase (46-116) U/L Troponin I (0.00-0.056) ng/mL C-Reactive Protein (<1.0) mg/dL NT-Pro-B Natriuret Pep (0-125) pg/mL Total Protein (6.4-8.2) g/dl Albumin (3.4-5.0) g/dl Globulin gm/dL Albumin/Globulin Ratio (1-2) Meds: Medications Discontinued Medications Generic Name Dose Route Start Last Admin Trade Name Freq PRN Reason Stop Dose Admin Albuterol/Ipratropium 3 ml 11/09/17 19:44 11/09/17 19:52 Duoneb 3.0-0.5 Mg/3 Ml NEB 11/09/17 19:45 3 ml ONETIME ONE Administration - Re-Assessments/Exams Free Text/Narrative Re-Assessment/Exam: Patient with significant diffuse wheezing bilaterally. She does have mild crackles at the bases. Decreased lung sounds at the bases as well. X-ray reviewed with Dr. Mendez and demonstrates pulmonary edema, official radiologist report is pending. WBC 8960 with 71% neutrophils and 1% bands. CRP 4.0. Patient did take her oxygen off to use the restroom and sats dropped to 75% even at rest. On 2.5 L of oxygen this comes up to 88%. After a DuoNeb treatment this did come up to 92%. ABG demonstrates respiratory acidosis. BNP elevated to 1144 which is above any previous she has had drawn here. Troponin elevated slightly to 0.022. EKG demonstrates normal sinus rhythm with rate of 58. Case was discussed with Dr. Ontiveros/hospitalist and patient will be admitted to the ICU. PATIENT IS A FULL CODE STATUS 11/09/17 20:18 11/09/17 20:30 Departure - Departure Time of Disposition: 20:32 Disposition: Admitted As Inpatient 65 Condition: Fair Clinical Impression: Hypoxia, COPD exacerbation, CHF (congestive heart failure), Respiratory acidosis - Discharge Information Referrals: PCP,None [Primary Care Provider] - Forms: ED Department Discharge - My Orders Last 24 Hours: My Active Orders 11/09/17 18:53 EKG 12 Lead [EKG Documentation Completion] [RC] STAT 11/09/17 18:54 CXR [Chest 2V] [CR] Stat 11/09/17 19:44 RT Aerosol Therapy [RC] ASDIRECTED - Assessment/Plan Last 24 Hours: My Active Orders 11/09/17 18:53 EKG 12 Lead [EKG Documentation Completion] [RC] STAT 11/09/17 18:54 CXR [Chest 2V] [CR] Stat 11/09/17 19:44 RT Aerosol Therapy [RC] ASDIRECTED
[2017-11-09] MEDS ORDERED: Albuterol/Ipratropium 3.0-0.5 MG/3 ML Neb Soln NEB ONE (19:44)
[2017-11-09] MEDS ORDERED: Albuterol 0.083% 2.5 MG/3 ML Neb Soln NEB PRN (21:34)
[2017-11-09] MEDS ORDERED: Temazepam 7.5 MG Cap PO PRN (22:00)
--- NOTE | 2017-11-09 22:00 | PCM.HP ---
H&P History of Present Illness - General Date of Service: 11/09/17 Admit Problem/Dx: Admission Diagnosis/Problem Admission Diagnosis/Problem Hypoxia Source of Information: Patient, Provider History Limitations: Reports: No Limitations - History of Present Illness Initial Comments - Free Text/Narative: 52 year old female with morbid obesity, BMI 62.8 presented with SOB associated with a cough as well as reportedly hemoptysis. PMH is reported as COPD with on going tobacco use. Additionally she reportedly has CHF. NYHA functional class is unknown. A 2D echo was performed September 2016 will poor visualization, contrast was not used. Onset of Symptoms: Reports: Unknown/Unsure Symptom Onset Date: 11/09/17 Duration of Symptoms: Reports: Day(s):, Getting Worse Location: Reports: Generalized Quality: Reports: Same as Previous Episode Severity: Moderate Improves with: Reports: Medication Worsens with: Reports: None Associated Symptoms: Reports: Cough, Malaise, Nausea/Vomiting, Shortness of Breath, Weakness - Related Data Allergies/Adverse Reactions: Allergies Allergy/AdvReac Type Severity Reaction Status Date / Time No Known Allergies Allergy Verified 11/09/17 17:35 Home Medications: Home Meds Fluticasone/Salmeterol [Advair Diskus 250-50] 1 puff INH BID #1 inhaler [Rx] Furosemide [Lasix] 40 mg PO BID 11/21/16 [History] Omeprazole 1 tab PO DAILY 11/21/16 [History] Albuterol/Ipratropium [DuoNeb 3.0-0.5 MG/3 ML] 3 ml NEB Q6H #30 neb 08/15/17 [Rx ] Aspirin 81 mg PO DAILY 11/09/17 [History] Past Medical History HEENT History: Reports: Impaired Vision Other HEENT History: GLASSES Cardiovascular History: Reports: Heart Failure, Hypertension Respiratory History: Reports: COPD, Pneumonia, Recurrent, SOB Gastrointestinal History: Reports: GERD, GI Bleed, Hemorrhoids Genitourinary History: Reports: UTI, Recurrent Other Genitourinary History: Nephrectomy [employer] History: Reports: Other OB/BYN History: 3 children vaginally Musculoskeletal History: Reports: Arthritis, Fracture Other Musculoskeletal History: right pinky Neurological History: Reports: Brain Injury, Head Trauma, Migraines Endocrine/Metabolic History: Reports: Obesity/BMI 30+ Oncologic (Cancer) History: Reports: Other (See Below) Other Oncologic History: Kidney Other Dermatologic History: 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 she has several pitting scars to her abdomen some small round areas that are darker in color ...looks like possibly boil scars. - Past Surgical History GI Surgical History: Reports: Cholecystectomy Female Surgical History: Reports: D&C, Nephrectomy Social & Family History - Family History Family Medical History: Noncontributory Endocrine/Metabolic: Reports: Diabetes, type II - Tobacco Use Smoking Status *Q: Current Every Day Smoker Years of Tobacco use: 15 Packs/Tins Daily: 0.4 Used Tobacco, but Quit: No Second Hand Smoke Exposure: No - Caffeine Use Caffeine Use: Reports: Coffee - Recreational Drug Use Recreational Drug Use: No - Living Situation & Occupation Occupation: Disabled H&P Review of Systems - Review of Systems: Review Of Systems: See Below General: Reports: Weakness HEENT: Reports: No Symptoms Pulmonary: Reports: Shortness of Breath, Pleuritic Chest Pain Cardiovascular: Reports: No Symptoms Gastrointestinal: Reports: No Symptoms Genitourinary: Reports: No Symptoms Musculoskeletal: Reports: No Symptoms Skin: Reports: No Symptoms Psychiatric: Reports: No Symptoms Neurological: Reports: No Symptoms Hematologic/Lymphatic: Reports: No Symptoms Immunologic: Reports: No Symptoms Exam - Exam Exam: See Below - Vital Signs Vital Signs: Last Vital Signs Temp 36.2 C 11/09/17 17:31 Pulse 59 L 11/09/17 17:31 Resp 20 11/09/17 17:31 BP 150/46 H 11/09/17 17:31 Pulse Ox 75 L 11/09/17 19:54 Weight: 181.437 kg - Exam Quality Assessment: Supplemental Oxygen, DVT Prophylaxis General: Alert, Oriented, Cooperative HEENT: Conjunctiva Clear, Nares Patent, Pupils Equal, Pupils Reactive, PERRLA Neck: Trachea Midline Lungs: Normal Respiratory Effort, Decreased Breath Sounds, Rhonchi, Wheezing Cardiovascular: Regular Rate, Regular Rhythm GI/Abdominal Exam: Normal Bowel Sounds, Soft, Non-Tender, No Organomegaly, No Distention (Female) Exam: Deferred Rectal (Female) Exam: Deferred Back Exam: Normal Inspection Extremities: Normal Inspection, Non-Tender Skin: Warm Neurological: Cranial Nerves Intact Neuro Extensive - Mental Status: Alert, Oriented x3, Normal Mood/Affect, Normal Cognition, Memory Intact - Patient Data Result Diagrams: 11/10/17 05:30 11/10/17 05:30 *Q Meaningful Use (ADM) - VTE *Q VTE Criteria *Q: - Stroke *Q Stroke Criteria *Q: - AMI *Q AMI Criteria *Q: - Problem List (1) Hypercapnia SNOMED Code(s): 03986129 ICD Code: R06.89 - OTHER ABNORMALITIES OF BREATHING Status: Acute Current Visit: Yes (2) Hypertension SNOMED Code(s): 86820892 ICD Code: I10 - ESSENTIAL (PRIMARY) HYPERTENSION Status: Acute Current Visit: Yes (3) Body mass index (bmi) 70 or greater, adult SNOMED Code(s): 871033210 ICD Code: Z68.45 - BODY MASS INDEX (BMI) 70 OR GREATER, ADULT Status: Acute Current Visit: Yes (4) Hypoxia SNOMED Code(s): 183255818 Status: Acute Current Visit: Yes (5) Cigarette smoker one half pack a day or less SNOMED Code(s): 47915552 Status: Chronic Current Visit: No Problem List Initiated/Reviewed/Updated: Yes Orders Last 24hrs: Active Orders 24 hr Category Date Time Status Admission Status [Patient Status] [ADT] Routine ADT 11/09/17 21:19 Active Heart Failure Education [RC] DAILY Care 11/09/17 21:58 Active RT Aerosol Therapy [RC] ASDIRECTED Care 11/09/17 21:34 Active Consult to Case Management [CONS] Routine Cons 11/09/17 21:42 Active Consult to Occupational Therapy [OT Evaluation and Cons 11/09/17 21:37 Active Treatment] [CONS] Routine Consult to Physical Therapy [PT Evaluation and Cons 11/09/17 21:37 Active Treatment] [CONS] Routine Heart Healthy Diet [DIET] Diet 11/10/17 Breakfast Active CXR [Chest 2V] [CR] Routine Exams 11/11/17 08:00 Ordered BMP [BASIC METABOLIC PANEL,BMP] [CHEM] DAILY Lab 11/10/17 05:00 Ordered BMP [BASIC METABOLIC PANEL,BMP] [CHEM] DAILY Lab 11/11/17 05:00 Ordered BMP [BASIC METABOLIC PANEL,BMP] [CHEM] DAILY Lab 11/12/17 05:00 Ordered BMP [BASIC METABOLIC PANEL,BMP] [CHEM] DAILY Lab 11/13/17 05:00 Ordered CBC WITH AUTO DIFF [HEME] DAILY Lab 11/10/17 05:00 Ordered CBC WITH AUTO DIFF [HEME] DAILY Lab 11/11/17 05:00 Ordered CBC WITH AUTO DIFF [HEME] DAILY Lab 11/12/17 05:00 Ordered CBC WITH AUTO DIFF [HEME] DAILY Lab 11/13/17 05:00 Ordered CRP [C-REACTIVE PROTEIN] [CHEM] DAILY Lab 11/10/17 05:00 Ordered CRP [C-REACTIVE PROTEIN] [CHEM] DAILY Lab 11/11/17 05:00 Ordered CRP [C-REACTIVE PROTEIN] [CHEM] DAILY Lab 11/12/17 05:00 Ordered CRP [C-REACTIVE PROTEIN] [CHEM] DAILY Lab 11/13/17 05:00 Ordered GLYCOSYLATED HEMOGLOBIN,HGBA1C [CHEM] Routine Lab 11/10/17 05:00 Ordered MAGNESIUM [CHEM] DAILY Lab 11/10/17 05:00 Ordered MAGNESIUM [CHEM] DAILY Lab 11/11/17 05:00 Ordered MAGNESIUM [CHEM] DAILY Lab 11/12/17 05:00 Ordered MAGNESIUM [CHEM] DAILY Lab 11/13/17 05:00 Ordered PRO B-TYPE NATRIUR PEPT,BNPPRO [CHEM] DAILY Lab 11/10/17 05:00 Ordered PRO B-TYPE NATRIUR PEPT,BNPPRO [CHEM] DAILY Lab 11/11/17 05:00 Ordered PRO B-TYPE NATRIUR PEPT,BNPPRO [CHEM] DAILY Lab 11/12/17 05:00 Ordered PRO B-TYPE NATRIUR PEPT,BNPPRO [CHEM] DAILY Lab 11/13/17 05:00 Ordered TROPONIN I [CHEM] DAILY Lab 11/10/17 05:00 Ordered TROPONIN I [CHEM] DAILY Lab 11/11/17 05:00 Ordered Albuterol [Proventil Neb Soln] Med 11/09/17 21:34 Active 2.5 mg NEB Q4HRRT PRN Albuterol/Ipratropium [DuoNeb 3.0-0.5 MG/3 ML] Med 11/09/17 21:33 Active 3 ml NEB QIDRT PRN Aspirin [Halfprin] Med 11/10/17 09:00 Active 81 mg PO DAILY Doxycycline [Vibramycin] 100 mg Med 11/10/17 09:00 Active Sodium Chloride 0.9% [Normal Saline] 100 ml IV Q12HR Enoxaparin [Lovenox] Med 11/09/17 22:00 Active 40 mg SUBCUT Q24H Furosemide [Lasix] Med 11/10/17 09:00 Active 40 mg IVPUSH DAILY Mometasone/Formoterol [Dulera 200-5 MCG] Med 11/10/17 06:00 Active 2 puff IH BIDRT Nicotine [Habitrol] Med 11/10/17 09:00 Active 21 mg TRDERM DAILY Remove Patch Med 11/11/17 09:00 Active 1 ea TRDERM DAILY methylPREDNISolone Sod Succ [Solu-MEDROL] Med 11/09/17 22:00 Active 125 mg IVPUSH Q6H Code Status [Resuscitation Status] Routine Resus Stat 11/09/17 21:30 Ordered Medication Orders Albuterol (Proventil Neb Soln) 2.5 mg NEB Q4HRRT PRN PRN Reason: Shortness of Breath Albuterol/Ipratropium (Duoneb 3.0-0.5 Mg/3 Ml) 3 ml NEB QIDRT PRN PRN Reason: Shortness of Breath Aspirin (Halfprin) 81 mg PO DAILY JOHNATHAN Enoxaparin Sodium (Lovenox) 40 mg SUBCUT Q24H JOHNATHAN Furosemide (Lasix) 40 mg IVPUSH DAILY JOHNATHAN Doxycycline Hyclate 100 mg/ (Sodium Chloride) 100 mls @ 100 mls/hr IV Q12HR JOHNATHAN Methylprednisolone Sodium Succinate (Solu-Medrol) 125 mg IVPUSH Q6H JOHNATHAN Miscellaneous Information (Remove Patch) 1 ea TRDERM DAILY JOHNATHAN Mometasone Furoate/Formoterol Fumar (Dulera 200-5 Mcg) 2 puff IH BIDRT JOHNATHAN Nicotine (Habitrol) 21 mg TRDERM DAILY JOHNATHAN Assessment/Plan Comment:: Impression: Acute COPD exacerbation with hypoxia/hypercapnia Morbid obesity with BMI >70 Hypertension Lipid status unknown History of reportedly CHF Plan: IVF Nebs scheduled/prn CHF protocol as appropriate Atypical coverage with doxycycline Titrate oxygen to saturation >92% Tobacco cessation education Nicotine replacement Dietary consult re: heart healthy diet and weight loss. DVT/GI prophylaxis Consult PT/OT/CM
[2017-11-09] MEDS: methylPREDNISolone Sodium Succinate 125 MG/2 ML SDV IVPUSH SCH (23:09)
[2017-11-09] MEDS: Enoxaparin 40 MG/0.4 ML Syringe SUBCUT SCH (23:09)
[2017-11-10] MEDS: methylPREDNISolone Sodium Succinate 125 MG/2 ML SDV IVPUSH SCH ×4 (03:52→21:44)
[2017-11-10] MEDS: Formoterol/Mometasone 200-5 MCG 8.8 GM Inhaler IH SCH ×3 (06:57→20:02)
--- NOTE | 2017-11-10 07:32 | CR ---
Chest: Two views of the chest were obtained. Comparison: Prior chest x-ray of 08/15/17. Diffuse increased density is seen within the right chest. Pulmonary vessels are also somewhat congested. Heart size is mildly enlarged. Bony structures are within normal limits for the patient's age. Pleural thickening is noted along the right lateral chest wall. Impression: 1. Cardiomegaly and pulmonary vascular congestion. Asymmetric increased density within the right chest is seen possibly due to asymmetric pulmonary vascular congestion or superimposed pneumonia. 2. Pleural thickening along the right lateral chest most likely due to loculated pleural effusion. Diagnostic code #3
[2017-11-10] MEDS: Nicotine 21 MG/24 Hr Patch TRDERM SCH ×2 (08:23→14:33)
[2017-11-10] MEDS: Aspirin 81 MG Tab.EC PO SCH (08:23)
[2017-11-10] MEDS: Furosemide 40 MG/4 ML VIAL IVPUSH SCH (08:23)
[2017-11-10] MEDS ORDERED: Doxycycline 100 MG in Sodium Chloride 0.9% 100 ML IV SCH (09:00)
[2017-11-10] MEDS ORDERED: Non-Formulary Medication 1 Each (Fluticasone/Salmeterol 1 PUFF) INH SCH (09:00)
[2017-11-10] MEDS ORDERED: Furosemide 20 MG/2 ML VIAL IVPUSH ONE (14:43)
--- NOTE | 2017-11-10 15:04 | PCM.PN ---
- General Info Date of Service: 11/10/17 Functional Status: Reports: Tolerating Diet, Ambulating, Urinating - Review of Systems General: Reports: No Symptoms HEENT: Reports: No Symptoms Pulmonary: Reports: Shortness of Breath Cardiovascular: Reports: No Symptoms Gastrointestinal: Reports: No Symptoms Genitourinary: Reports: No Symptoms Musculoskeletal: Reports: No Symptoms Skin: Reports: No Symptoms Neurological: Reports: No Symptoms Psychiatric: Reports: No Symptoms - Patient Data Vitals - Most Recent: Last Vital Signs Temp 37.0 C 11/10/17 14:09 Pulse 59 L 11/10/17 14:09 Resp 26 H 11/10/17 14:09 BP 158/64 H 11/10/17 14:09 Pulse Ox 95 11/10/17 14:09 Weight - Most Recent: 160.889 kg I&O - Last 24 Hours: Intake & Output 11/10/17 11/10/17 11/10/17 06:59 14:59 22:59 Intake Total 180 120 Output Total 500 450 Balance -320 -330 Lab Results Last 24 Hours: Laboratory Results - last 24 hr 11/10/17 11/10/17 11/10/17 Range/Units 05:30 05:30 05:30 WBC 7.63 (3.98-10.04) K/mm3 RBC 5.18 (3.98-5.22) M/mm3 Hgb 15.0 (11.2-15.7) gm/L Hct 50.0 H (34.1-44.9) % MCV 96.5 H (79.4-94.8) fl MCH 29.0 (25.6-32.2) pg MCHC 30.0 L (32.2-35.5) g/dl RDW Std Deviation 57.2 H (36.4-46.3) fL Plt Count 111 L (182-369) K/mm3 MPV 11.3 (9.4-12.3) fl Neut % (Auto) 89.8 H (34.0-71.1) % Lymph % (Auto) 8.0 L (19.3-51.7) % [place] % (Auto) 1.3 L (4.7-12.5) % Eos % (Auto) 0.3 L (0.7-5.8) Baso % (Auto) 0.3 (0.1-1.2) % Neut # (Auto) 6.86 H (1.56-6.13) K/mm3 Lymph # (Auto) 0.61 L (1.18-3.74) K/mm3 [place] # (Auto) 0.10 L (0.24-0.36) K/mm3 Eos # (Auto) 0.02 L (0.04-0.36) K/mm3 Baso # (Auto) 0.02 (0.01-0.08) K/mm3 Manual Slide Review Abnormal smear Sodium 139 (136-145) mEq/L Potassium 5.2 H (3.5-5.1) mEq/L Chloride 103 (98-107) mEq/L Carbon Dioxide 30 (21-32) mEq/L Anion Gap 11.2 (5-15) BUN 13 (7-18) mg/dL Creatinine 0.9 (0.55-1.02) mg/dL Est Cr Clr Drug Dosing 59.80 mL/min Estimated GFR (MDRD) > 60 (>60) mL/min BUN/Creatinine Ratio 14.4 (14-18) Glucose 174 H (74-106) mg/dL Hemoglobin A1c (4.50-6.20) % Calcium 8.4 L (8.5-10.1) mg/dL Magnesium 2.1 (1.8-2.4) mg/dl Troponin I < 0.017 (0.00-0.056) ng/mL C-Reactive Protein 4.1 H* (<1.0) mg/dL NT-Pro-B Natriuret Pep 684 H (0-125) pg/mL 11/10/17 Range/Units 05:30 WBC (3.98-10.04) K/mm3 RBC (3.98-5.22) M/mm3 Hgb (11.2-15.7) gm/L Hct (34.1-44.9) % MCV (79.4-94.8) fl MCH (25.6-32.2) pg MCHC (32.2-35.5) g/dl RDW Std Deviation (36.4-46.3) fL Plt Count (182-369) K/mm3 MPV (9.4-12.3) fl Neut % (Auto) (34.0-71.1) % Lymph % (Auto) (19.3-51.7) % [place] % (Auto) (4.7-12.5) % Eos % (Auto) (0.7-5.8) Baso % (Auto) (0.1-1.2) % Neut # (Auto) (1.56-6.13) K/mm3 Lymph # (Auto) (1.18-3.74) K/mm3 [place] # (Auto) (0.24-0.36) K/mm3 Eos # (Auto) (0.04-0.36) K/mm3 Baso # (Auto) (0.01-0.08) K/mm3 Manual Slide Review Sodium (136-145) mEq/L Potassium (3.5-5.1) mEq/L Chloride (98-107) mEq/L Carbon Dioxide (21-32) mEq/L Anion Gap (5-15) BUN (7-18) mg/dL Creatinine (0.55-1.02) mg/dL Est Cr Clr Drug Dosing mL/min Estimated GFR (MDRD) (>60) mL/min BUN/Creatinine Ratio (14-18) Glucose (74-106) mg/dL Hemoglobin A1c 5.60 (4.50-6.20) % Calcium (8.5-10.1) mg/dL Magnesium (1.8-2.4) mg/dl Troponin I (0.00-0.056) ng/mL C-Reactive Protein (<1.0) mg/dL NT-Pro-B Natriuret Pep (0-125) pg/mL Med Orders - Current: Current Medications Albuterol (Proventil Neb Soln) 2.5 mg NEB Q4HRRT PRN PRN Reason: Shortness of Breath Last Admin: 11/10/17 07:05 Dose: 2.5 mg Albuterol/Ipratropium (Duoneb 3.0-0.5 Mg/3 Ml) 3 ml NEB QIDRT PRN PRN Reason: Shortness of Breath Aspirin (Halfprin) 81 mg PO DAILY [facility] Last Admin: 11/10/17 08:23 Dose: 81 mg Enoxaparin Sodium (Lovenox) 40 mg SUBCUT Q24H [facility] Last Admin: 11/09/17 23:09 Dose: 40 mg Furosemide (Lasix) 40 mg IVPUSH DAILY [facility] Last Admin: 11/10/17 08:23 Dose: 40 mg Levofloxacin/Dextrose 750 mg/ (Premix) 150 mls @ 100 mls/hr IV Q24H [facility] Methylprednisolone Sodium Succinate (Solu-Medrol) 125 mg IVPUSH Q6H [facility] Last Admin: 11/10/17 09:27 Dose: 125 mg Miscellaneous Information (Remove Patch) 1 ea TRDERM DAILY [facility] Last Admin: 11/10/17 14:34 Dose: 1 ea Mometasone Furoate/Formoterol Fumar (Dulera 200-5 Mcg) 2 puff IH BIDRT [facility] Last Admin: 11/10/17 06:57 Dose: 2 puff Nicotine (Habitrol) 21 mg TRDERM DAILY [facility] Last Admin: 11/10/17 14:33 Dose: 21 mg Temazepam (Restoril) 7.5 mg PO BEDTIME PRN PRN Reason: insomnia Discontinued Medications Albuterol/Ipratropium (Duoneb 3.0-0.5 Mg/3 Ml) 3 ml NEB ONETIME ONE Stop: 11/09/17 19:45 Last Admin: 11/09/17 19:52 Dose: 3 ml Furosemide (Lasix) 20 mg IVPUSH ONETIME ONE Stop: 11/10/17 14:44 Doxycycline Hyclate 100 mg/ (Sodium Chloride) 100 mls @ 100 mls/hr IV Q12HR [facility] Last Admin: 11/10/17 09:26 Dose: 100 mls/hr - Exam Quality Assessment: Supplemental Oxygen, DVT Prophylaxis General: Alert, Oriented, Cooperative HEENT: Pupils Equal, Pupils Reactive, EOMI Neck: Trachea Midline, No JVD Lungs: Normal Respiratory Effort, Decreased Breath Sounds Cardiovascular: Regular Rate, Regular Rhythm GI/Abdominal Exam: Normal Bowel Sounds, Soft, Non-Tender, No Organomegaly, No Distention (Female) Exam: Deferred Back Exam: Normal Inspection Extremities: Normal Inspection Skin: Warm Neurological: No New Focal Deficit Psy/Mental Status: Alert, Normal Affect, Normal Mood - Problem List Review Problem List Initiated/Reviewed/Updated: Yes - My Orders Last 24 Hours: My Active Orders 11/09/17 21:30 Code Status [Resuscitation Status] Routine 11/09/17 21:33 Albuterol/Ipratropium [DuoNeb 3.0-0.5 MG/3 ML] 3 ml NEB QIDRT PRN 11/09/17 21:34 RT Aerosol Therapy [RC] ASDIRECTED Albuterol [Proventil Neb Soln] 2.5 mg NEB Q4HRRT PRN 11/09/17 21:37 Consult to Occupational Therapy [OT Evaluation and Treatment] [CONS] Routine Consult to Physical Therapy [PT Evaluation and Treatment] [CONS] Routine 11/09/17 21:42 Consult to Case Management [CONS] Routine 11/09/17 21:58 Heart Failure Education [RC] 11/09/17 22:00 Enoxaparin [Lovenox] 40 mg SUBCUT Q24H Temazepam [Restoril] 7.5 mg PO BEDTIME PRN methylPREDNISolone Sod Succ [Solu-MEDROL] 125 mg IVPUSH Q6H 11/10/17 06:00 Mometasone/Formoterol [Dulera 200-5 MCG] 2 puff IH BIDRT 11/10/17 09:00 Aspirin [Halfprin] 81 mg PO DAILY Furosemide [Lasix] 40 mg IVPUSH DAILY Nicotine [Habitrol] 21 mg TRDERM DAILY 11/10/17 15:00 Levofloxacin/Dextrose 5%-Water [Levaquin in D5W 750 MG/150 ML] 750 mg Premix Bag 1 bag IV Q24H 11/10/17 Breakfast Heart Healthy Diet [DIET] 11/11/17 05:00 BMP [BASIC METABOLIC PANEL,BMP] [CHEM] DAILY CBC WITH AUTO DIFF [HEME] DAILY CRP [C-REACTIVE PROTEIN] [CHEM] DAILY MAGNESIUM [CHEM] DAILY PRO B-TYPE NATRIUR PEPT,BNPPRO [CHEM] DAILY TROPONIN I [CHEM] DAILY 11/11/17 08:00 CXR [Chest 2V] [CR] Routine 11/11/17 09:00 Remove Patch 1 ea TRDERM DAILY 11/12/17 05:00 BMP [BASIC METABOLIC PANEL,BMP] [CHEM] DAILY CBC WITH AUTO DIFF [HEME] DAILY CRP [C-REACTIVE PROTEIN] [CHEM] DAILY MAGNESIUM [CHEM] DAILY PRO B-TYPE NATRIUR PEPT,BNPPRO [CHEM] DAILY 11/13/17 05:00 BMP [BASIC METABOLIC PANEL,BMP] [CHEM] DAILY CBC WITH AUTO DIFF [HEME] DAILY CRP [C-REACTIVE PROTEIN] [CHEM] DAILY MAGNESIUM [CHEM] DAILY PRO B-TYPE NATRIUR PEPT,BNPPRO [CHEM] DAILY - Plan Plan:: Impression: Acute COPD exacerbation with hypoxia/hypercapnia Morbid obesity with BMI >70 Hypertension Left foot chronic wound, plantar aspect Lipid status unknown History of reportedly CHF Plan: IVF Nebs scheduled/prn CHF protocol as appropriate Atypical coverage with doxycycline-->change to levoquin Add Vancomycin with pharmacy consult Wound care with PT, left foot Titrate oxygen to saturation >92% Tobacco cessation education Nicotine replacement Dietary consult re: heart healthy diet and weight loss. DVT/GI prophylaxis Consult PT/OT/CM
[2017-11-10] MEDS: Albuterol/Ipratropium 3.0-0.5 MG/3 ML Neb Soln NEB PRN ×2 (15:27→19:28)
[2017-11-10] MEDS: Levofloxacin/Dextrose 5%-Water 750 MG in Premix Bag 1 BAG IV SCH (15:32)
--- NOTE | 2017-11-10 15:59 | CR ---
Left foot: 4 views left foot were obtained. Comparison: No previous study. Soft tissue swelling or other injury is seen within the sole of the foot. Minimal calcaneal spurs are seen. No acute fracture or acute erosion is seen. No additional bony abnormality is seen. Impression: 1. Soft tissue swelling and other incidental findings. 2. No acute bony abnormality is identified. Diagnostic code #2
[2017-11-10] MEDS: Vancomycin 1500 MG in Sodium Chloride 0.9% 500 ML IV SCH ×3 (17:14)
[2017-11-10] MEDS: hydrALAZINE 20 MG/ML SDV IVPUSH PRN (19:45)
[2017-11-10] MEDS: Nystatin Topical Powder 15 GM Bottle TOP SCH (20:42)
[2017-11-10] MEDS: Enoxaparin 40 MG/0.4 ML Syringe SUBCUT SCH (21:44)
[2017-11-11] MEDS: methylPREDNISolone Sodium Succinate 125 MG/2 ML SDV IVPUSH SCH ×2 (05:08→10:11)
[2017-11-11] MEDS: Vancomycin 1500 MG in Sodium Chloride 0.9% 500 ML IV SCH ×6 (05:08→17:08)
[2017-11-11] MEDS: Formoterol/Mometasone 200-5 MCG 8.8 GM Inhaler IH SCH ×2 (09:08→20:43)
--- NOTE | 2017-11-11 09:28 | CR ---
Chest: Two views of the chest were obtained. Comparison: Prior chest x-ray of 11/09/17. Heart is enlarged. Pulmonary vessels are congested. Findings on the right side are improved from previous chest x-ray. Slight pleural thickening is noted along the right lateral chest which remains stable. Bony structures are unremarkable. Impression: 1. Cardiomegaly and pulmonary vascular congestion. Previous findings on the right side are slightly improved on current study. Diagnostic code #2
[2017-11-11] MEDS: Aspirin 81 MG Tab.EC PO SCH (10:11)
[2017-11-11] MEDS: Furosemide 40 MG/4 ML VIAL IVPUSH SCH (10:11)
[2017-11-11] MEDS: Nystatin Topical Powder 15 GM Bottle TOP SCH ×4 (10:12→21:51)
[2017-11-11] MEDS: Nicotine 21 MG/24 Hr Patch TRDERM SCH (10:13)
--- NOTE | 2017-11-11 15:13 | PCM.PN ---
- General Info Date of Service: 11/11/17 Admission Dx/Problem (Free Text): Admission Diagnosis/Problem Admission Diagnosis/Problem Hypoxia Subjective Update: In to see Judy today. She is lying in bed. She reports her shortness of breath is back to baseline. She has no complaints at this time. PT was consulted on a wound on her left foot which is 1.4 cm and tunneling. There is no drainage and it does not appear erythematous. 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 She will need to establish on discharge. I did discuss how this could lead to future problems up to and including amputation of the foot should she not address it now. She voiced understanding. Her Solu-Medrol has been decreased. Likely discharge on Tuesday. UA was noted to be positive. I will order urine culture. She is getting Levaquin and Vanco which would likely cover this. Functional Status: Reports: Pain Controlled, Tolerating Diet, Ambulating, Urinating, Incentive Spirometry. Denies: New Symptoms - Review of Systems General: Reports: No Symptoms HEENT: Reports: No Symptoms Pulmonary: Reports: Shortness of Breath (baseline ). Denies: Cough, Sputum Cardiovascular: Reports: Dyspnea on Exertion (baseline ). Denies: Chest Pain, Palpitations Gastrointestinal: Reports: No Symptoms. Denies: Abdominal Pain, Constipation, Diarrhea, Nausea, Vomiting Genitourinary: Reports: No Symptoms. Denies: Dysuria, Frequency, Burning, Pain Musculoskeletal: Reports: No Symptoms Skin: Reports: No Symptoms Neurological: Reports: No Symptoms Psychiatric: Reports: No Symptoms - Patient Data Vitals - Most Recent: Last Vital Signs Temp 97.9 F 11/11/17 11:11 Pulse 63 11/11/17 11:11 Resp 20 11/11/17 11:11 BP 139/61 11/11/17 11:11 Pulse Ox 95 11/11/17 11:11 Weight - Most Recent: 354 lb 7 oz I&O - Last 24 Hours: Intake & Output 11/11/17 11/11/17 11/11/17 06:59 14:59 22:59 Intake Total 600 360 Balance 600 360 Lab Results Last 24 Hours: Laboratory Results - last 24 hr 11/11/17 11/11/17 11/11/17 Range/Units 06:30 06:30 06:30 WBC 7.61 (3.98-10.04) K/mm3 RBC 5.08 (3.98-5.22) M/mm3 Hgb 14.7 (11.2-15.7) gm/L Hct 48.0 H (34.1-44.9) % MCV 94.5 (79.4-94.8) fl MCH 28.9 (25.6-32.2) pg MCHC 30.6 L (32.2-35.5) g/dl RDW Std Deviation 52.8 H (36.4-46.3) fL Plt Count 121 L (182-369) K/mm3 MPV 12.0 (9.4-12.3) fl Neut % (Auto) 80.1 H (34.0-71.1) % Lymph % (Auto) 15.4 L (19.3-51.7) % [place] % (Auto) 3.7 L (4.7-12.5) % Eos % (Auto) 0 L (0.7-5.8) Baso % (Auto) 0.3 (0.1-1.2) % Neut # (Auto) 6.10 (1.56-6.13) K/mm3 Lymph # (Auto) 1.17 L (1.18-3.74) K/mm3 [place] # (Auto) 0.28 (0.24-0.36) K/mm3 Eos # (Auto) 0.00 L (0.04-0.36) K/mm3 Baso # (Auto) 0.02 (0.01-0.08) K/mm3 Manual Slide Review Abnormal smear Sodium 138 (136-145) mEq/L Potassium 4.2 (3.5-5.1) mEq/L Chloride 102 (98-107) mEq/L Carbon Dioxide 32 (21-32) mEq/L Anion Gap 8.2 (5-15) BUN 18 (7-18) mg/dL Creatinine 0.9 (0.55-1.02) mg/dL Est Cr Clr Drug Dosing 59.80 mL/min Estimated GFR (MDRD) > 60 (>60) mL/min BUN/Creatinine Ratio 20.0 H (14-18) Glucose 185 H (74-106) mg/dL Calcium 8.3 L (8.5-10.1) mg/dL Magnesium 1.9 (1.8-2.4) mg/dl Troponin I < 0.017 (0.00-0.056) ng/mL C-Reactive Protein 1.9 H* (<1.0) mg/dL NT-Pro-B Natriuret Pep 784 H (0-125) pg/mL Med Orders - Current: Current Medications Albuterol (Proventil Neb Soln) 2.5 mg NEB Q4HRRT PRN PRN Reason: Shortness of Breath Last Admin: 11/10/17 07:05 Dose: 2.5 mg Albuterol/Ipratropium (Duoneb 3.0-0.5 Mg/3 Ml) 3 ml NEB QIDRT PRN PRN Reason: Shortness of Breath Last Admin: 11/10/17 19:28 Dose: 3 ml Aspirin (Halfprin) 81 mg PO DAILY [facility] Last Admin: 11/11/17 10:11 Dose: 81 mg Enoxaparin Sodium (Lovenox) 40 mg SUBCUT Q24H [facility] Last Admin: 11/10/17 21:44 Dose: 40 mg Furosemide (Lasix) 40 mg IVPUSH DAILY [facility] Last Admin: 11/11/17 10:11 Dose: 40 mg Hydralazine HCl (Apresoline) 20 mg IVPUSH Q6H PRN PRN Reason: Hypertension Last Admin: 11/10/17 19:45 Dose: 20 mg Levofloxacin/Dextrose 750 mg/ (Premix) 150 mls @ 100 mls/hr IV Q24H [facility] Last Admin: 11/10/17 15:32 Dose: 100 mls/hr Vancomycin HCl 1 gm/Vancomycin HCl 500 mg/ Sodium Chloride 500 mls @ 333 mls/ hr IV Q12H [facility] Last Admin: 11/11/17 05:08 Dose: 333 mls/hr Methylprednisolone Sodium Succinate (Solu-Medrol) 40 mg IVPUSH Q8H [facility] Miscellaneous Information (Remove Patch) 1 ea TRDERM DAILY [facility] Last Admin: 11/11/17 10:13 Dose: 1 ea Mometasone Furoate/Formoterol Fumar (Dulera 200-5 Mcg) 2 puff IH BID [facility] Last Admin: 11/11/17 09:08 Dose: 2 puff Nicotine (Habitrol) 21 mg TRDERM DAILY [facility] Last Admin: 11/11/17 10:13 Dose: 21 mg Nystatin (Nystop) 0 gm TOP TID [facility] Last Admin: 11/11/17 10:23 Dose: Not Given Temazepam (Restoril) 7.5 mg PO BEDTIME PRN PRN Reason: insomnia Vancomycin HCl (Pharmacy To Dose - Vancomycin) 1 dose .XX ASDIRECTED [facility] Discontinued Medications Albuterol/Ipratropium (Duoneb 3.0-0.5 Mg/3 Ml) 3 ml NEB ONETIME ONE Stop: 11/09/17 19:45 Last Admin: 11/09/17 19:52 Dose: 3 ml Furosemide (Lasix) 20 mg IVPUSH ONETIME ONE Stop: 11/10/17 14:44 Last Admin: 11/10/17 15:30 Dose: 20 mg Doxycycline Hyclate 100 mg/ (Sodium Chloride) 100 mls @ 100 mls/hr IV Q12HR [facility] Last Admin: 11/10/17 09:26 Dose: 100 mls/hr Methylprednisolone Sodium Succinate (Solu-Medrol) 125 mg IVPUSH Q6H [facility] Last Admin: 11/11/17 10:11 Dose: 125 mg Mometasone Furoate/Formoterol Fumar (Dulera 200-5 Mcg) 2 puff IH BIDRT [facility] Last Admin: 11/10/17 20:02 Dose: Not Given - Exam Quality Assessment: Supplemental Oxygen, DVT Prophylaxis General: Alert, Oriented, Cooperative, No Acute Distress HEENT: Pupils Equal, Pupils Reactive, EOMI, Mucous Membr. Moist/[place] Neck: Supple, Trachea Midline, No JVD Lungs: Normal Respiratory Effort, Decreased Breath Sounds Cardiovascular: Regular Rate, Regular Rhythm, Other (distant heart tones ) GI/Abdominal Exam: Normal Bowel Sounds, Soft, Non-Tender, No Organomegaly, No Distention, No Abnormal Bruit, No Mass, Pelvis Stable (Female) Exam: Deferred Back Exam: Normal Inspection Extremities: Normal Inspection, Normal Range of Motion, Non-Tender, No Pedal Edema, Normal Capillary Refill Peripheral Pulses: 2+: Radial (L), Radial (R), Posterior Tibial (L), Posterior Tibial (R), Dorsalis Pedis (L), Dorsalis Pedis (R) Skin: Warm, Dry, Intact Wound/Incisions: No Drainage, Other (Small 1.4 cm tunneling wound on base of left foot.). No: Erythema Neurological: No New Focal Deficit Psy/Mental Status: Alert, Normal Affect, Normal Mood - Problem List & Annotations (1) Morbid obesity with BMI of 60.0-69.9, adult SNOMED Code(s): 107467303 Code(s): E66.01 - MORBID (SEVERE) OBESITY DUE TO EXCESS CALORIES; Z68.44 - BODY MASS INDEX (BMI) 60.0-69.9, ADULT Status: Chronic Priority: High Current Visit: Yes (2) Hypercapnia SNOMED Code(s): 95777702 Code(s): R06.89 - OTHER ABNORMALITIES OF BREATHING Status: Acute Priority : High Current Visit: Yes (3) Hypertension SNOMED Code(s): 77207845 Code(s): I10 - ESSENTIAL (PRIMARY) HYPERTENSION Status: Chronic Priority : High Current Visit: Yes Qualifiers: Hypertension type: unspecified Qualified Code(s): I10 - Essential (primary ) hypertension (4) Hypoxia SNOMED Code(s): 084122021 Status: Acute Priority: High Current Visit: Yes (5) Cigarette smoker one half pack a day or less SNOMED Code(s): 02716049 Status: Chronic Priority: Medium Current Visit: Yes (6) UTI (urinary tract infection) SNOMED Code(s): 53126004 Code(s): N39.0 - URINARY TRACT INFECTION, SITE NOT SPECIFIED Status: Acute Current Visit: Yes - Problem List Review Problem List Initiated/Reviewed/Updated: Yes - Plan Plan:: Impression: Acute COPD exacerbation with hypoxia/hypercapnia - improved Morbid obesity with BMI >60 Hypertension Left foot chronic wound, plantar aspect Lipid status unknown - panel ordered History of reportedly CHF UTI - culture ordered, levaquin/vanco should cover Chronic: CHF HTN COPD Recurrent pneumonia GERD Recurent UTI Arthritis Obesity, Plan: IVF Nebs scheduled/prn CHF protocol as appropriate Atypical coverage with doxycycline-->change to levoquin Add Vancomycin with pharmacy consult Wound care with PT, left foot - Recommend OP podiatry on discharge Titrate oxygen to saturation >92% Tobacco cessation education Nicotine replacement Dietary consult re: heart healthy diet and weight loss. DVT/GI prophylaxis Consult PT/OT/CM Code status: Full code; PCP: None Likely discharge 11/13/17 pending continued improvement.
[2017-11-11] MEDS: Levofloxacin/Dextrose 5%-Water 750 MG in Premix Bag 1 BAG IV SCH (15:28)
[2017-11-11] MEDS: methylPREDNISolone Sodium Succinate 40 MG/1 ML SDV IVPUSH SCH (17:08)
[2017-11-11] MEDS: Enoxaparin 40 MG/0.4 ML Syringe SUBCUT SCH (21:48)
[2017-11-11] MEDS: hydrALAZINE 20 MG/ML SDV IVPUSH PRN (22:08)
[2017-11-12] MEDS: methylPREDNISolone Sodium Succinate 40 MG/1 ML SDV IVPUSH SCH ×2 (02:02→09:38)
[2017-11-12] MEDS: Vancomycin 1500 MG in Sodium Chloride 0.9% 500 ML IV SCH ×6 (03:47→16:46)
[2017-11-12] MEDS: Formoterol/Mometasone 200-5 MCG 8.8 GM Inhaler IH SCH ×2 (08:44→20:33)
[2017-11-12] MEDS: Furosemide 40 MG/4 ML VIAL IVPUSH SCH (09:38)
[2017-11-12] MEDS: Nystatin Topical Powder 15 GM Bottle TOP SCH ×3 (09:39→22:09)
[2017-11-12] MEDS: Nicotine 21 MG/24 Hr Patch TRDERM SCH (09:39)
[2017-11-12] MEDS: Aspirin 81 MG Tab.EC PO SCH (09:40)
[2017-11-12] MEDS: Levofloxacin/Dextrose 5%-Water 750 MG in Premix Bag 1 BAG IV SCH (14:53)
[2017-11-12] MEDS: hydrALAZINE 20 MG/ML SDV IVPUSH PRN (16:54)
--- NOTE | 2017-11-12 17:33 | PCM.PN ---
- General Info Date of Service: 11/12/17 Functional Status: Reports: Tolerating Diet, Ambulating, Urinating - Review of Systems General: Reports: No Symptoms HEENT: Reports: No Symptoms Pulmonary: Reports: No Symptoms Cardiovascular: Reports: No Symptoms Gastrointestinal: Reports: No Symptoms Genitourinary: Reports: No Symptoms Musculoskeletal: Reports: No Symptoms Skin: Reports: No Symptoms Neurological: Reports: No Symptoms Psychiatric: Reports: No Symptoms - Patient Data Vitals - Most Recent: Last Vital Signs Temp 36.3 C 11/12/17 14:29 Pulse 47 L 11/12/17 14:29 Resp 20 11/12/17 14:29 BP 159/62 H 11/12/17 14:29 Pulse Ox 96 11/12/17 14:29 Weight - Most Recent: 161.706 kg I&O - Last 24 Hours: Intake & Output 11/12/17 11/12/17 11/12/17 06:59 14:59 22:59 Intake Total 900 240 350 Output Total 1425 1650 Balance -525 240 -1300 Lab Results Last 24 Hours: Laboratory Results - last 24 hr 11/12/17 11/12/17 11/12/17 Range/Units 06:19 06:19 06:19 WBC 10.12 H (3.98-10.04) K/mm3 RBC 5.15 (3.98-5.22) M/mm3 Hgb 15.1 (11.2-15.7) gm/L Hct 47.9 H (34.1-44.9) % MCV 93.0 (79.4-94.8) fl MCH 29.3 (25.6-32.2) pg MCHC 31.5 L (32.2-35.5) g/dl RDW Std Deviation 53.0 H (36.4-46.3) fL Plt Count 136 L (182-369) K/mm3 MPV 12.0 (9.4-12.3) fl Neut % (Auto) 84.3 H (34.0-71.1) % Lymph % (Auto) 11.5 L (19.3-51.7) % [place] % (Auto) 3.8 L (4.7-12.5) % Eos % (Auto) 0 L (0.7-5.8) Baso % (Auto) 0.1 (0.1-1.2) % Neut # (Auto) 8.54 H (1.56-6.13) K/mm3 Lymph # (Auto) 1.16 L (1.18-3.74) K/mm3 [place] # (Auto) 0.38 H (0.24-0.36) K/mm3 Eos # (Auto) 0.00 L (0.04-0.36) K/mm3 Baso # (Auto) 0.01 (0.01-0.08) K/mm3 Manual Slide Review Abnormal smear Sodium 139 (136-145) mEq/L Potassium 4.2 (3.5-5.1) mEq/L Chloride 103 (98-107) mEq/L Carbon Dioxide 31 (21-32) mEq/L Anion Gap 9.2 (5-15) BUN 24 H (7-18) mg/dL Creatinine 0.9 (0.55-1.02) mg/dL Est Cr Clr Drug Dosing 59.80 mL/min Estimated GFR (MDRD) > 60 (>60) mL/min BUN/Creatinine Ratio 26.7 H (14-18) Glucose 193 H (74-106) mg/dL Calcium 8.1 L (8.5-10.1) mg/dL Magnesium 2.1 (1.8-2.4) mg/dl C-Reactive Protein < 0.2 (<1.0) mg/dL NT-Pro-B Natriuret Pep 675 H (0-125) pg/mL Triglycerides (<150) mg/dL Cholesterol (<200) mg/dL LDL Cholesterol Direct (<100) mg/dL HDL Cholesterol (40-59) mg/dL Vancomycin Trough (10.0-20.0) Mycoplasma pneumon IgM Negative (NEGATIVE) 11/12/17 11/12/17 Range/Units 06:19 15:43 WBC (3.98-10.04) K/mm3 RBC (3.98-5.22) M/mm3 Hgb (11.2-15.7) gm/L Hct (34.1-44.9) % MCV (79.4-94.8) fl MCH (25.6-32.2) pg MCHC (32.2-35.5) g/dl RDW Std Deviation (36.4-46.3) fL Plt Count (182-369) K/mm3 MPV (9.4-12.3) fl Neut % (Auto) (34.0-71.1) % Lymph % (Auto) (19.3-51.7) % [place] % (Auto) (4.7-12.5) % Eos % (Auto) (0.7-5.8) Baso % (Auto) (0.1-1.2) % Neut # (Auto) (1.56-6.13) K/mm3 Lymph # (Auto) (1.18-3.74) K/mm3 [place] # (Auto) (0.24-0.36) K/mm3 Eos # (Auto) (0.04-0.36) K/mm3 Baso # (Auto) (0.01-0.08) K/mm3 Manual Slide Review Sodium (136-145) mEq/L Potassium (3.5-5.1) mEq/L Chloride (98-107) mEq/L Carbon Dioxide (21-32) mEq/L Anion Gap (5-15) BUN (7-18) mg/dL Creatinine (0.55-1.02) mg/dL Est Cr Clr Drug Dosing mL/min Estimated GFR (MDRD) (>60) mL/min BUN/Creatinine Ratio (14-18) Glucose (74-106) mg/dL Calcium (8.5-10.1) mg/dL Magnesium (1.8-2.4) mg/dl C-Reactive Protein (<1.0) mg/dL NT-Pro-B Natriuret Pep (0-125) pg/mL Triglycerides 89 (<150) mg/dL Cholesterol 158 (<200) mg/dL LDL Cholesterol Direct 116 H* (<100) mg/dL HDL Cholesterol 29.0 L (40-59) mg/dL Vancomycin Trough 15.9 (10.0-20.0) Mycoplasma pneumon IgM (NEGATIVE) Aditya Results Last 24 Hours: Microbiology 11/12/17 09:47 Influenza Type A Antigen Screen - Final Nasal, Unspecified NEGATIVE INFLUENZA A VIRUS AG Influenza Type B Antigen Screen - Final NEGATIVE INFLUENZA B VIRUS AG Med Orders - Current: Current Medications Albuterol (Proventil Neb Soln) 2.5 mg NEB Q4HRRT PRN PRN Reason: Shortness of Breath Last Admin: 11/10/17 07:05 Dose: 2.5 mg Albuterol/Ipratropium (Duoneb 3.0-0.5 Mg/3 Ml) 3 ml NEB QIDRT PRN PRN Reason: Shortness of Breath Last Admin: 11/10/17 19:28 Dose: 3 ml Aspirin (Halfprin) 81 mg PO DAILY [facility] Last Admin: 11/12/17 09:40 Dose: 81 mg Enoxaparin Sodium (Lovenox) 40 mg SUBCUT Q24H [facility] Last Admin: 11/11/17 21:48 Dose: 40 mg Furosemide (Lasix) 40 mg IVPUSH DAILY [facility] Last Admin: 11/12/17 09:38 Dose: 40 mg Hydralazine HCl (Apresoline) 20 mg IVPUSH Q6H PRN PRN Reason: Hypertension Last Admin: 11/12/17 16:54 Dose: 20 mg Levofloxacin/Dextrose 750 mg/ (Premix) 150 mls @ 100 mls/hr IV Q24H [facility] Last Admin: 11/12/17 14:53 Dose: 100 mls/hr Miscellaneous Information (Remove Patch) 1 ea TRDERM DAILY [facility] Last Admin: 11/12/17 09:37 Dose: 1 ea Mometasone Furoate/Formoterol Fumar (Dulera 200-5 Mcg) 2 puff IH BID [facility] Last Admin: 11/12/17 08:44 Dose: 2 puff Nicotine (Habitrol) 21 mg TRDERM DAILY [facility] Last Admin: 11/12/17 09:39 Dose: 21 mg Nystatin (Nystop) 0 gm TOP TID [facility] Last Admin: 11/12/17 14:59 Dose: 1 applic Temazepam (Restoril) 7.5 mg PO BEDTIME PRN PRN Reason: insomnia Discontinued Medications Albuterol/Ipratropium (Duoneb 3.0-0.5 Mg/3 Ml) 3 ml NEB ONETIME ONE Stop: 11/09/17 19:45 Last Admin: 11/09/17 19:52 Dose: 3 ml Furosemide (Lasix) 20 mg IVPUSH ONETIME ONE Stop: 11/10/17 14:44 Last Admin: 11/10/17 15:30 Dose: 20 mg Doxycycline Hyclate 100 mg/ (Sodium Chloride) 100 mls @ 100 mls/hr IV Q12HR [facility] Last Admin: 11/10/17 09:26 Dose: 100 mls/hr Vancomycin HCl 1 gm/Vancomycin HCl 500 mg/ Sodium Chloride 500 mls @ 333 mls/ hr IV Q12H [facility] Last Admin: 11/12/17 16:46 Dose: 333 mls/hr Methylprednisolone Sodium Succinate (Solu-Medrol) 125 mg IVPUSH Q6H [facility] Last Admin: 11/11/17 10:11 Dose: 125 mg Methylprednisolone Sodium Succinate (Solu-Medrol) 40 mg IVPUSH Q8H [facility] Last Admin: 11/12/17 09:38 Dose: 40 mg Mometasone Furoate/Formoterol Fumar (Dulera 200-5 Mcg) 2 puff IH BIDRT [facility] Last Admin: 11/10/17 20:02 Dose: Not Given Vancomycin HCl (Pharmacy To Dose - Vancomycin) 1 dose .XX ASDIRECTED [facility] - Exam Quality Assessment: Supplemental Oxygen, DVT Prophylaxis General: Alert, Oriented, Cooperative, No Acute Distress HEENT: Pupils Equal, Pupils Reactive, EOMI Neck: Supple, Trachea Midline Lungs: Normal Respiratory Effort, Decreased Breath Sounds Cardiovascular: Regular Rate, Regular Rhythm GI/Abdominal Exam: Normal Bowel Sounds, Soft, Non-Tender, No Organomegaly, No Distention (Female) Exam: Deferred Back Exam: Normal Inspection Extremities: Normal Inspection Skin: Warm Neurological: No New Focal Deficit Psy/Mental Status: Alert, Normal Affect, Normal Mood - Problem List Review Problem List Initiated/Reviewed/Updated: Yes - My Orders Last 24 Hours: My Active Orders 11/13/17 05:00 BMP [BASIC METABOLIC PANEL,BMP] [CHEM] DAILY CBC WITH AUTO DIFF [HEME] DAILY CRP [C-REACTIVE PROTEIN] [CHEM] DAILY MAGNESIUM [CHEM] DAILY PRO B-TYPE NATRIUR PEPT,BNPPRO [CHEM] DAILY - Plan Plan:: Impression: Acute COPD exacerbation with hypoxia/hypercapnia - improved Morbid obesity with BMI >60 Hypertension Left foot chronic wound, plantar aspect Lipid status unknown - panel ordered History of reportedly CHF UTI - culture ordered, levaquin/vanco should cover Chronic: CHF HTN COPD Recurrent pneumonia GERD Recurent UTI Arthritis Obesity, Plan: IVF Nebs scheduled/prn CHF protocol as appropriate Atypical coverage with doxycycline-->change to levoquin, oral dose at DC 500 mg daily Add Vancomycin with pharmacy consult; DC Wound care with PT, left foot - Recommend OP podiatry on discharge Titrate oxygen to saturation >92%; resp assessment for DC Tobacco cessation education Nicotine replacement Dietary consult re: heart healthy diet and weight loss. DVT/GI prophylaxis Consult PT/OT/CM Code status: Full code; PCP: None LOS at 96 hours, will need O2 assessment.
[2017-11-12] MEDS: Albuterol/Ipratropium 3.0-0.5 MG/3 ML Neb Soln NEB PRN (20:10)
[2017-11-12] MEDS: Enoxaparin 40 MG/0.4 ML Syringe SUBCUT SCH (21:56)
[2017-11-13] MEDS: Aspirin 81 MG Tab.EC PO SCH (08:23)
[2017-11-13] MEDS: Nicotine 21 MG/24 Hr Patch TRDERM SCH (08:23)
[2017-11-13] MEDS: Furosemide 40 MG/4 ML VIAL IVPUSH SCH (08:23)
[2017-11-13] MEDS: Nystatin Topical Powder 15 GM Bottle TOP SCH (08:23)
[2017-11-13] MEDS: Formoterol/Mometasone 200-5 MCG 8.8 GM Inhaler IH SCH (09:57)
--- NOTE | 2017-11-13 10:29 | PCM.DCSUM1 ---
Discharge Summary - Hospital Course Free Text/Narrative:: 52 year old female with morbid obesity, BMI 62.8 presented with SOB associated with a cough as well as reportedly hemoptysis. PMH is reported as COPD with on going tobacco use. Additionally she reportedly has CHF. NYHA functional class is unknown. A 2D echo was performed September 2016 will poor visualization, contrast was not used. - Discharge Data Discharge Date: 11/13/17 Discharge Disposition: Home, Self-Care 01 Condition: Good - Patient Summary/Data Consults: Consultations 11/09/17 21:37 Consult to Occupational Therapy [OT Evaluation and Treatment] [CONS] Routine Consult to Physical Therapy [PT Evaluation and Treatment] [CONS] Routine 11/09/17 21:42 Consult to Case Management [CONS] Routine 11/10/17 16:18 Consult to Physical Therapy [PT Evaluation and Treatment] [CONS] Routine 11/11/17 15:37 Consult to Laboratory Director [CONS] Routine - Patient Instructions Diet: Usual Diet as Tolerated Activity: As Tolerated Driving: May Drive Today Showering/Bathing: May Shower Notify Provider of: Fever, Nausea and/or Vomiting - Discharge Plan Prescriptions/Med Rec: Levofloxacin [Levaquin] 500 mg PO Q24H #5 tablet Levofloxacin [Levaquin] 500 mg PO Q24H #5 tablet Losartan [Cozaar] 25 mg PO BEDTIME #30 tablet Nystatin [Nystop] 2 gm TOP TID #60 bottle Remove Patch 1 ea TRDERM DAILY #30 each Home Medications: Home Meds Fluticasone/Salmeterol [Advair Diskus 250-50] 1 puff INH BID #1 inhaler [Rx] Furosemide [Lasix] 40 mg PO BID 11/21/16 [History] Omeprazole 1 tab PO DAILY 11/21/16 [History] Albuterol/Ipratropium [DuoNeb 3.0-0.5 MG/3 ML] 3 ml NEB Q6H #30 neb 08/15/17 [Rx ] Aspirin 81 mg PO DAILY 11/09/17 [History] Levofloxacin [Levaquin] 500 mg PO Q24H #5 tablet 11/13/17 [Rx] Levofloxacin [Levaquin] 500 mg PO Q24H #5 tablet 11/13/17 [Rx] Losartan [Cozaar] 25 mg PO BEDTIME #30 tablet 11/13/17 [Rx] Nystatin [Nystop] 2 gm TOP TID #60 bottle 11/13/17 [Rx] Remove Patch 1 ea TRDERM DAILY #30 each 11/13/17 [Rx] Patient Handouts: Chronic Obstructive Pulmonary Disease Exacerbation, Easy-to- Read, Steps to Quit Smoking, [id number], Shortness of Breath, Adult, Easy-to- Read, Heart-Healthy Eating Plan, [id number], Chronic Obstructive Pulmonary Disease, [id number], Heart Failure, [id number] Referrals: PCP,None [Primary Care Provider] - - Discharge Summary/Plan Comment DC Time >30 min.: No Discharge Summary/Plan Comment: Impression: Acute COPD exacerbation with hypoxia/hypercapnia - improved Morbid obesity with BMI >60 Hypertension Left foot chronic wound, plantar aspect Lipid status unknown - panel ordered History of reportedly CHF UTI - culture ordered, levaquin/vanco should cover Chronic: CHF HTN COPD Recurrent pneumonia GERD Recurent UTI Arthritis Obesity, Plan: IVF Nebs scheduled/prn CHF protocol as appropriate Atypical coverage with doxycycline-->change to levoquin, oral dose at DC 500 mg daily Add Vancomycin with pharmacy consult; DC Wound care with PT, left foot - Recommend OP podiatry on discharge Titrate oxygen to saturation >92%; resp assessment for DC Tobacco cessation education Nicotine replacement Dietary consult re: heart healthy diet and weight loss. DVT/GI prophylaxis Consult PT/OT/CM Code status: Full code; PCP: None - General Info Date of Service: 11/09/17 Functional Status: Reports: Tolerating Diet, Ambulating, Urinating - Review of Systems General: Reports: No Symptoms HEENT: Reports: No Symptoms Pulmonary: Reports: No Symptoms Cardiovascular: Reports: No Symptoms Gastrointestinal: Reports: No Symptoms Genitourinary: Reports: No Symptoms Musculoskeletal: Reports: No Symptoms Skin: Reports: No Symptoms Neurological: Reports: No Symptoms Psychiatric: Reports: No Symptoms - Patient Data Vitals - Most Recent: Last Vital Signs Temp 36.8 C 11/13/17 08:39 Pulse 67 11/13/17 08:39 Resp 20 11/13/17 08:39 BP 127/75 11/13/17 08:39 Pulse Ox 95 11/13/17 09:58 Weight - Most Recent: 161.343 kg I&O - Last 24 hours: Intake & Output 11/12/17 11/13/17 11/13/17 21:59 06:59 14:59 Intake Total Output Total Balance Lab Results - Last 24 hrs: Laboratory Results - last 24 hr 11/12/17 11/13/17 11/13/17 Range/Units 15:43 06:19 06:19 WBC 10.04 (3.98-10.04) K/mm3 RBC 5.24 H (3.98-5.22) M/mm3 Hgb 15.5 (11.2-15.7) gm/L Hct 48.7 H (34.1-44.9) % MCV 92.9 (79.4-94.8) fl MCH 29.6 (25.6-32.2) pg MCHC 31.8 L (32.2-35.5) g/dl RDW Std Deviation 53.5 H (36.4-46.3) fL Plt Count 134 L (182-369) K/mm3 MPV 11.9 (9.4-12.3) fl Neut % (Auto) 71.8 H (34.0-71.1) % Lymph % (Auto) 18.7 L (19.3-51.7) % [place] % (Auto) 9.4 (4.7-12.5) % Eos % (Auto) 0 L (0.7-5.8) Baso % (Auto) 0.1 (0.1-1.2) % Neut # (Auto) 7.21 H (1.56-6.13) K/mm3 Lymph # (Auto) 1.88 (1.18-3.74) K/mm3 [place] # (Auto) 0.94 H (0.24-0.36) K/mm3 Eos # (Auto) 0.00 L (0.04-0.36) K/mm3 Baso # (Auto) 0.01 (0.01-0.08) K/mm3 Manual Slide Review Normal smear Sodium 140 (136-145) mEq/L Potassium 3.6 (3.5-5.1) mEq/L Chloride 103 (98-107) mEq/L Carbon Dioxide 33 H (21-32) mEq/L Anion Gap 7.6 (5-15) BUN 21 H (7-18) mg/dL Creatinine 0.8 (0.55-1.02) mg/dL Est Cr Clr Drug Dosing 67.27 mL/min Estimated GFR (MDRD) > 60 (>60) mL/min BUN/Creatinine Ratio 26.3 H (14-18) Glucose 136 H (74-106) mg/dL Calcium 8.1 L (8.5-10.1) mg/dL Magnesium 2.1 (1.8-2.4) mg/dl C-Reactive Protein < 0.2 (<1.0) mg/dL NT-Pro-B Natriuret Pep (0-125) pg/mL Vancomycin Trough 15.9 (10.0-20.0) 11/13/17 Range/Units 06:19 WBC (3.98-10.04) K/mm3 RBC (3.98-5.22) M/mm3 Hgb (11.2-15.7) gm/L Hct (34.1-44.9) % MCV (79.4-94.8) fl MCH (25.6-32.2) pg MCHC (32.2-35.5) g/dl RDW Std Deviation (36.4-46.3) fL Plt Count (182-369) K/mm3 MPV (9.4-12.3) fl Neut % (Auto) (34.0-71.1) % Lymph % (Auto) (19.3-51.7) % [place] % (Auto) (4.7-12.5) % Eos % (Auto) (0.7-5.8) Baso % (Auto) (0.1-1.2) % Neut # (Auto) (1.56-6.13) K/mm3 Lymph # (Auto) (1.18-3.74) K/mm3 [place] # (Auto) (0.24-0.36) K/mm3 Eos # (Auto) (0.04-0.36) K/mm3 Baso # (Auto) (0.01-0.08) K/mm3 Manual Slide Review Sodium (136-145) mEq/L Potassium (3.5-5.1) mEq/L Chloride (98-107) mEq/L Carbon Dioxide (21-32) mEq/L Anion Gap (5-15) BUN (7-18) mg/dL Creatinine (0.55-1.02) mg/dL Est Cr Clr Drug Dosing mL/min Estimated GFR (MDRD) (>60) mL/min BUN/Creatinine Ratio (14-18) Glucose (74-106) mg/dL Calcium (8.5-10.1) mg/dL Magnesium (1.8-2.4) mg/dl C-Reactive Protein (<1.0) mg/dL NT-Pro-B Natriuret Pep 1589 H (0-125) pg/mL Vancomycin Trough (10.0-20.0) PUMA Results - Last 24 hrs: Microbiology 11/12/17 09:47 Influenza Type A Antigen Screen - Final Nasal, Unspecified NEGATIVE INFLUENZA A VIRUS AG Influenza Type B Antigen Screen - Final NEGATIVE INFLUENZA B VIRUS AG Med Orders - Current: Current Medications Albuterol (Proventil Neb Soln) 2.5 mg NEB Q4HRRT PRN PRN Reason: Shortness of Breath Last Admin: 11/10/17 07:05 Dose: 2.5 mg Albuterol/Ipratropium (Duoneb 3.0-0.5 Mg/3 Ml) 3 ml NEB QIDRT PRN PRN Reason: Shortness of Breath Last Admin: 11/12/17 20:10 Dose: 3 ml Aspirin (Halfprin) 81 mg PO DAILY [facility] Last Admin: 11/13/17 08:23 Dose: 81 mg Enoxaparin Sodium (Lovenox) 40 mg SUBCUT Q24H JOHNATHAN Last Admin: 11/12/17 21:56 Dose: 40 mg Furosemide (Lasix) 40 mg IVPUSH DAILY [facility] Last Admin: 11/13/17 08:23 Dose: 40 mg Hydralazine HCl (Apresoline) 20 mg IVPUSH Q6H PRN PRN Reason: Hypertension Last Admin: 11/12/17 16:54 Dose: 20 mg Levofloxacin/Dextrose 750 mg/ (Premix) 150 mls @ 100 mls/hr IV Q24H [facility] Last Admin: 11/12/17 14:53 Dose: 100 mls/hr Miscellaneous Information (Remove Patch) 1 ea TRDERM DAILY [facility] Last Admin: 11/13/17 08:28 Dose: 1 ea Mometasone Furoate/Formoterol Fumar (Dulera 200-5 Mcg) 2 puff IH BID [facility] Last Admin: 11/13/17 09:57 Dose: 2 puff Nicotine (Habitrol) 21 mg TRDERM DAILY [facility] Last Admin: 11/13/17 08:23 Dose: 21 mg Nystatin (Nystop) 0 gm TOP TID [facility] Last Admin: 11/13/17 08:23 Dose: 1 applic Temazepam (Restoril) 7.5 mg PO BEDTIME PRN PRN Reason: insomnia Discontinued Medications Albuterol/Ipratropium (Duoneb 3.0-0.5 Mg/3 Ml) 3 ml NEB ONETIME ONE Stop: 11/09/17 19:45 Last Admin: 11/09/17 19:52 Dose: 3 ml Furosemide (Lasix) 20 mg IVPUSH ONETIME ONE Stop: 11/10/17 14:44 Last Admin: 11/10/17 15:30 Dose: 20 mg Doxycycline Hyclate 100 mg/ (Sodium Chloride) 100 mls @ 100 mls/hr IV Q12HR [facility] Last Admin: 11/10/17 09:26 Dose: 100 mls/hr Vancomycin HCl 1 gm/Vancomycin HCl 500 mg/ Sodium Chloride 500 mls @ 333 mls/ hr IV Q12H [facility] Last Admin: 11/12/17 16:46 Dose: 333 mls/hr Methylprednisolone Sodium Succinate (Solu-Medrol) 125 mg IVPUSH Q6H [facility] Last Admin: 11/11/17 10:11 Dose: 125 mg Methylprednisolone Sodium Succinate (Solu-Medrol) 40 mg IVPUSH Q8H [facility] Last Admin: 11/12/17 09:38 Dose: 40 mg Mometasone Furoate/Formoterol Fumar (Dulera 200-5 Mcg) 2 puff IH BIDRT [facility] Last Admin: 11/10/17 20:02 Dose: Not Given Vancomycin HCl (Pharmacy To Dose - Vancomycin) 1 dose .XX ASDIRECTED ON [facility] - Exam General: Reports: Alert, Oriented, Cooperative, No Acute Distress HEENT: Reports: Pupils Equal, Pupils Reactive, EOMI Neck: Reports: Supple, Trachea Midline, No JVD Lungs: Reports: Clear to Auscultation, Normal Respiratory Effort Cardiovascular: Reports: Regular Rate, Regular Rhythm GI/Abdominal Exam: Normal Bowel Sounds, Soft, Non-Tender, No Organomegaly, No Distention (Female) Exam: Deferred Rectal (Female) Exam: Deferred Back Exam: Reports: Normal Inspection Extremities: Normal Inspection Skin: Reports: Warm, Dry Neurological: Reports: No New Focal Deficit Psy/Mental Status: Reports: Alert, Normal Affect, Normal Mood *Q Meaningful Use (DIS) - VTE *Q VTE Criteria *Q: - Stroke *Q Stroke Criteria *Q: - AMI *Q AMI Criteria *Q:
[2017-11-13] MEDS ORDERED: Furosemide 40 MG/4 ML VIAL IVPUSH ONE (10:45)
[2017-11-13] MEDS ORDERED: Potassium Chloride 10% 20 MEQ/15 ML Soln 30 ML UD Cup PO ONE (10:45)
[2017-11-13] MEDS ORDERED: Losartan 25 MG Tab PO SCH (10:45)
[2017-11-13] MEDS ORDERED: Levofloxacin 500 MG Tab PO SCH (11:00)
[2017-11-13 11:53] VITALS: BP 141/85
[2017-11-13] MEDS ORDERED: Levofloxacin/Dextrose 5%-Water 750 MG in Premix Bag 1 BAG IV ONE (12:15)
[2017-11-14] MEDS ORDERED: Nicotine 21 MG/24 Hr Patch TRDERM SCH (09:00)
[2017-11-14] MEDS ORDERED: Levofloxacin 500 MG Tab PO SCH (11:00)
== END 2017-11-13 13:40 | disposition home or self-care (01) | DRG 191 ==
LOC: JD.ED 17:26 → JD.ICU 20:31 → JD.MS 11-10 13:00
PROVIDERS: ADMIT Internal Medicine Cardiovascular Disease; ATTEND Internal Medicine Cardiovascular Disease
DX: J44.1 Chronic obstructive pulmonary disease with (acute) exacerbation (principal); Z68.45 Body mass index [BMI] 70 or greater, adult; N39.0 Urinary tract infection, site not specified; E87.2 Acidosis; R09.02 Hypoxemia; R06.89 Other abnormalities of breathing; S91.302D Unspecified open wound, left foot, subsequent encounter; E66.01 Morbid (severe) obesity due to excess calories; I25.10 Atherosclerotic heart disease of native coronary artery without angina pectoris; I11.0 Hypertensive heart disease with heart failure; I50.9 Heart failure, unspecified; F17.210 Nicotine dependence, cigarettes, uncomplicated; K21.9 Gastro-esophageal reflux disease without esophagitis; Z85.528 Personal history of other malignant neoplasm of kidney; Z90.5 Acquired absence of kidney; M19.90 Unspecified osteoarthritis, unspecified site; H54.7 Unspecified visual loss; Z79.82 Long term (current) use of aspirin; Z99.81 Dependence on supplemental oxygen; Z79.899 Other long term (current) drug therapy
CPT/HCPCS: 36415; 36600; 71046; 71046-26; 73630-26-LT; 73630-LT; 80048; 80053; 80061; 80202; 81001; 82803; 83036; 83735; 83880; 84484; 85025; 86140; 86738; 87086; 87804; 93005; 93010; 94640; 94660; 94664; 94761; 97116-GP; 97162-GP; 97165-GO; 97530-GO; 97530-GP; 99285; 99285-25; A9270-GY; J0360; J1650; J1940; J1956; J2920; J2930; J3370; J7030; J7040

== ENCOUNTER 2019-05-11 16:02 | Emergency (ER) | payer MEDICAID, OTHER ==
[~2019-05-11 16:02] MED LIST: Etomidate 2 MG/ML 20 ML SDV IVPUSH ONE; Lidocaine 1% 2 ML SDV ONE; Lidocaine 1% PF 2 ML SDV ONE; Midazolam 1 MG/ML 5 ML SDV ONE; Succinylcholine 200 MG/10 ML MDV ONE
[2019-05-11 16:18] VITALS: BP 134/112
--- NOTE | 2019-05-11 16:19 | EDM.PDOC ---
ED HPI GENERAL MEDICAL PROBLEM - General Chief Complaint: Respiratory Problem Stated Complaint: [facility] Time Seen by Provider: 05/11/19 16:19 Source of Information: Reports: Patient History Limitations: Reports: No Limitations - History of Present Illness INITIAL COMMENTS - FREE TEXT/NARRATIVE: 53-year-old female arrives in our ED per [place] [facility]. She presents apparently with O2 sats of only 72% at home. She is normally on between 2 and 3 L/m by nasal cannula at all times. She was discharged from [facility] she states 2 days ago. The reason for her stay is unclear. At present she is suffering severe respiratory distress and appears mildly confused. I suspect she is hypercarbic. She's not able to answer all questions because of severe respiratory distress. She was placed on nasal cannula at 5 L/m as her sats were only 88% on 4 L. She has decreased air entry to both lung diaz. Patient is morbidly obese greater than 350 pounds. There is no mentioning of her being diabetic. 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 She is on Eliquis which I anticipate means that she is in chronic atrial fibrillation. Currently the monitor shows a heart rate of 1 18/m atrial fibrillation. Plan ABGs will be done immediately. One view chest x-ray. Routine labs including blood cultures 2 and septic workup to include the urine by catheterization if it can be obtained. Onset: Unknown/Unsure Onset Date: 05/10/19 (Apparently she was discharged from [facility] on the fourth. This is not clear-cut.) Duration: Day(s):, Getting Worse Location: Reports: Other (Severe hypoxia and respiratory distress.) Quality: Reports: Other Severity: Severe (Severe dyspnea respiratory distress.) Improves with: Reports: None Worsens with: Reports: Movement Context: Reports: Other (Spontaneous occurrence.). Denies: Activity, Exercise, Lifting, Sick Contact, Trauma Associated Symptoms: Reports: Confusion, Cough, Loss of Appetite, Malaise, Shortness of Breath, Weakness. Denies: Chest Pain (Nonproductive), cough w sputum, Fever/Chills, Nausea/Vomiting, Rash, Seizure (Severe), Syncope Treatments MECHANOTHERAPIST: Reports: Other (see below) (As far as I can ascertain she's been taking her normal medications.) - Related Data Allergies Allergy/AdvReac Type Severity Reaction Status Date / Time No Known Allergies Allergy Verified 08/06/18 17:14 Home Meds: Home Meds Fluticasone/Salmeterol [Advair Diskus 250-50] 1 puff INH BID #1 inhaler [Rx] Furosemide [Lasix] 40 mg PO BID 11/21/16 [History] Omeprazole 1 tab PO DAILY 11/21/16 [History] Albuterol/Ipratropium [DuoNeb 3.0-0.5 MG/3 ML] 3 ml NEB Q6H #30 neb 08/15/17 [Rx ] Aspirin 81 mg PO DAILY 11/09/17 [History] Losartan [Cozaar] 25 mg PO BEDTIME #30 tablet 11/13/17 [Rx] Nystatin [Nystop] 2 gm TOP TID #60 bottle 11/13/17 [Rx] Albuterol/Ipratropium [Combivent Respimat] 4 gm IH Q4H PRN #1 aer.w.adap [Rx] Apixaban [Eliquis] 5 mg PO BID #60 tablet 04/05/18 [Rx] Metoprolol Tartrate [Lopressor] 25 mg PO Q12H #60 tablet 04/05/18 [Rx] Modafinil [Provigil] 200 mg PO DAILY #30 tablet 04/05/18 [Rx] Spironolactone [Aldactone] 25 mg PO DAILY #30 tab 04/05/18 [Rx] atorvaSTATin Calcium [Atorvastatin Calcium] 40 mg PO BEDTIME #30 tablet [Rx] Past Medical History HEENT History: Reports: Impaired Vision Other HEENT History: GLASSES Cardiovascular History: Reports: Heart Failure, Hypertension Respiratory History: Reports: COPD, Pneumonia, Recurrent, SOB, Other (See Below ) (No mention of sleep apnea.) Gastrointestinal History: Reports: GERD, GI Bleed, Hemorrhoids Genitourinary History: Reports: UTI, Recurrent Other Genitourinary History: Nephrectomy ONCOLOGY PHYSICIAN ASSISTANT History: Reports: Other ONCOLOGY PHYSICIAN ASSISTANT History: 3 children vaginally Musculoskeletal History: Reports: Arthritis, Fracture Other Musculoskeletal History: right pinky Neurological History: Reports: Brain Injury, Head Trauma, Migraines Endocrine/Metabolic History: Reports: Obesity/BMI 30+ Oncologic (Cancer) History: Reports: Other (See Below) Other Oncologic History: Kidney Other Dermatologic History: 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 she has several pitting scars to her abdomen some small round areas that are darker in color ...looks like possibly boil scars. - Past Surgical History GI Surgical History: Reports: Cholecystectomy Female Surgical History: Reports: D&C, Nephrectomy Social & Family History - Family History Family Medical History: Noncontributory Endocrine/Metabolic: Reports: Diabetes, type II - Caffeine Use Caffeine Use: Reports: Coffee, Soda - Living Situation & Occupation Occupation: Disabled ED ROS GENERAL - Review of Systems Review Of Systems: See Below Constitutional: Reports: Malaise, Weakness, Fatigue, Decreased Appetite (Unable to eat today due to respiratory distress.). Denies: Fever HEENT: Reports: No Symptoms Respiratory: Reports: Shortness of Breath, Wheezing, Cough. Denies: Pleuritic Chest Pain, Sputum, Hemoptysis (Nonproductive and mild) Cardiovascular: Reports: Blood Pressure Problem, Dyspnea on Exertion ( Chronically), Edema, Other (Is oxygen dependent usually between 2 and 3 L/m all times). Denies: Claudication, Lightheadedness, Orthopnea Endocrine: Reports: Fatigue GI/Abdominal: Denies: Abdominal Pain : Reports: No Symptoms Musculoskeletal: Reports: Back Pain, Joint Pain (Knee pain bilaterally.) Skin: Reports: Other (Easy bruising as she is on Eliquis.) Neurological: Reports: Confusion Psychiatric: Reports: No Symptoms Hematologic/Lymphatic: Reports: No Symptoms Immunologic: Reports: No Symptoms ED EXAM, GENERAL - Physical Exam Exam: See Below Exam Limited By: Respiratory Distress (Severe respiratory distress. Can only speak in one or 2 word sentences.) General Appearance: Severe Distress, Other (Severe respiratory distress. Patient is morbidly obese. Temperature is 36.0 with a pulse of 1 27/m we'll monitor suggest this is atrial fibrillation. Respiratory distress 22-26/m. Sats are 94% on 5 L/m. BP 134/112.) Eye Exam: Bilateral Eye: Normal Inspection (Some crusting of her upper eyelids bilaterally but no active conjunctivitis.) Throat/Mouth: Other (Tongue is very dry and coated.). No: Normal Teeth Head: Atraumatic, Normocephalic Neck: Supple, Non-Tender. No: Lymphadenopathy (L), Lymphadenopathy (R), Thyromegaly Respiratory/Chest: Respiratory Distress (Severe respiratory distress.), Decreased Breath Sounds (Decreased air into the lower 50% of lung diaz bilaterally. Seems to be worse in the right side as compared to the left.), Wheezing. No: Lungs Clear, Normal Breath Sounds, Rales, Rhonchi Cardiovascular: No Murmur (No murmur identified but an adventitial sounds from lungs partially obscuring ability to hear heart sounds.), Irregularly Irregular (Heart rate is irregularly irregular and faint at the wrist. Monitor shows age fibrillation and 1 28/m.). No: Normal Peripheral Pulses (No pulses are palpable in her lower extremities due to obesity and edema.), Regular Rate, Rhythm Peripheral Pulses: 0: Posterior Tibial (L), Posterior Tibial (R), Dorsalis Pedis (L), Dorsalis Pedis (R), 1+: Radial (L), Radial (R), 2+: Carotid (L), Carotid (R) GI/Abdominal: Normal Bowel Sounds, Distended (Bowel sounds are present all 4 quadrants appears mildly distended appendix percussion in the upper abdomen. The abdominal girth is revealing morbid obesity. I'm not able to palpate any solid organs.), Other (She is morbidly obese. Pannus hangs down to her knees.) (Female) Exam: Other (I do not have a look at her genital area the nurses explored this area for catheterization identified greatest white ease follow smelling material in both inguinal folds suggestive of chronic candidiasis.) Extremities: Pedal Edema (2+ pitting edema both lower extremities.) Neurological: Confused (She is translated confused I think secondary to hypercarbia.) Psychiatric: Flat Affect Skin Exam: Warm, Dry, Intact, Normal Color, Other (Candidiasis both inguinal folds.) ED RESPIRATORY PROCEDURES - Endotracheal Intubation Time of Intubation: 19:08 ET Intubation Indication: Respiratory Failure Preparation: Suction, Balloon Tested, BVM Set Up, Difficult Airway Equip Airway Assessment: Obese, Large Tongue Pre-Oxygenation: Assisted with BVM, 100% FiO2 Anesthesia Meds: Etomidate (51 mg), Lidocaine (150 mg), Succinylcholine (250 mg) , Vecuronium (Received 17 mg of vecuronium 2 since intubation.) Placement: Orotracheal Cords Visualized: Grade 1 Number of Attempts: 1 Confirmed By: CO2 Indicator, Bilateral Breath Sounds (Initial breath sounds were quite poor in the left side. They improved only slightly on), Chest Xray ( pulling back the tube. reveal satisfactory position of the ET tube in the trachea. ) Tube Secured By: By RT EKG INTERPRETATION EKG Date: 05/11/19 Time: 17:00 Rhythm: A-Fib (With a rate of 90-1 60/m) Rate (Beats/Min): 128 Duarte: RAD-Right Duarte Deviation (130. There is a left posterior fascicular block pattern) P-Wave: Absent QRS: Other (There is decreased voltage in both limb and precordial leads. Initial very poor R-wave progression.) ST-T: Other (The computer reads minimal ST elevation in the lateral leads I do not appreciate this and disagree with computer reading.) QT: Normal EKG Interpretation Comments: Abnormal ECG Course - Vital Signs Last Recorded V/S: Last Vital Signs Temp 36.0 C 05/11/19 16:09 Pulse 127 H 05/11/19 16:09 Resp 20 05/11/19 16:09 BP 134/112 H 05/11/19 16:09 Pulse Ox 94 L 05/11/19 16:09 - Orders/Labs/Meds Orders: Active Orders 24 hr Category Date Time Status EKG Documentation Completion [RC] STAT Care 05/11/19 16:16 Active Doshi Catheter Insertion [Insert Urinary Catheter] [OM. Care 05/11/19 16:30 Ordered PC] Q24H Oxygen Therapy [RC] ASDIRECTED Care 05/11/19 16:17 Active RASS Sedation Scale [RC] ASDIRECTED Care 05/11/19 19:45 Active Urinary Catheter Assessment [RC] ASDIRECTED Care 05/11/19 16:18 Active CULTURE BLOOD [BC] Stat Lab 05/11/19 16:56 Received CULTURE BLOOD [BC] Stat Lab 05/11/19 17:30 Received Diltiazem 125 mg Med 05/11/19 17:30 Active Sodium Chloride 0.9% [Normal Saline] 100 ml IV ASDIRECTED Propofol [Diprivan 100 ML] 100 ml Med 05/11/19 19:32 Active IV TITRATE Blood Culture x2 Reflex Set [OM.PC] Stat Oth 05/11/19 16:17 Ordered Desired Level of Sedation (RASS) [AST] CONTINUOUS Oth 05/11/19 19:32 Ordered Medication Orders Diltiazem HCl 125 mg/ Sodium (Chloride) 125 mls @ 10 mls/hr IV ASDIRECTED JOHNATHAN Last Admin: 05/11/19 17:40 Dose: 10 mg/hr, 10 mls/hr Propofol (Diprivan 100 Ml) 100 mls @ 50.349 mls/hr IV TITRATE JOHNATHAN; Protocol Last Titration: 05/11/19 20:22 Dose: 25 mcg/kg/min, 25.174 mls/hr Admin: 05/11/19 19:32 Dose: 50 mcg/kg/min, 50.349 mls/hr Labs: Laboratory Tests 05/11/19 05/11/19 05/11/19 Range/Units 16:47 16:50 17:30 WBC (3.98-10.04) K/mm3 RBC (3.98-5.22) M/mm3 Hgb (11.2-15.7) gm/L Hct (34.1-44.9) % MCV (79.4-94.8) fl MCH (25.6-32.2) pg MCHC (32.2-35.5) g/dl RDW Std Deviation (36.4-46.3) fL Plt Count (182-369) K/mm3 MPV (9.4-12.3) fl Neutrophils % (Manual) (40-60) % Band Neutrophils % (0-10) % Lymphocytes % (Manual) (20-40) % Atypical Lymphs % % Monocytes % (Manual) (2-10) % Eosinophils % (Manual) (0.7-5.8) % Basophils % (Manual) (0.1-1.2) Platelet Estimate Plt Morphology Comment Hypochromasia Microcytosis Target Cells Tear Drop Cells RBC Morph Comment ESR (0-20) mm/hr PT (9.7-12.0) SECONDS INR APTT (22-31) SECONDS Puncture Site Rt radial ABG pH 7.18 L* (7.35-7.45) ABG pCO2 122.4 H* (35.0-45.0) mmHg ABG pO2 73.0 L (80.0-100.0) mmHg ABG HCO3 44.2 H (22.0-26.0) meq/L ABG O2 Saturation 93.3 L (96.0-97.0) % ABG Base Excess 11.7 H (-2-2.0) Obie Test Positive A-a Gradient 32 mmHg O2 Delivery Device Nasal cannula Oxygen Flow Rate 4.5 FiO2 36.00 (21.00-100.00) % Sodium 142 (136-145) mEq/L Potassium 5.0 (3.5-5.1) mEq/L Chloride 103 (98-107) mEq/L Carbon Dioxide 37 H (21-32) mEq/L Anion Gap 7.0 (5-15) BUN 14 (7-18) mg/dL Creatinine 0.7 (0.55-1.02) mg/dL Est Cr Clr Drug Dosing 76.00 mL/min Estimated GFR (MDRD) > 60 (>60) mL/min BUN/Creatinine Ratio 20.0 H (14-18) Glucose 102 (74-106) mg/dL Lactic Acid (0.4-2.0) mmol/L Calcium 9.1 (8.5-10.1) mg/dL Magnesium 2.1 (1.8-2.4) mg/dl Total Bilirubin 0.6 (0.2-1.0) mg/dL AST 19 (15-37) U/L ALT 23 (14-59) U/L Alkaline Phosphatase 73 (46-116) U/L CK-MB (CK-2) 0.6 (0-3.6) ng/ml Troponin I < 0.017 (0.00-0.056) ng/mL C-Reactive Protein 0.6 (<1.0) mg/dL NT-Pro-B Natriuret Pep (0-125) pg/mL Total Protein 7.5 (6.4-8.2) g/dl Albumin 2.9 L (3.4-5.0) g/dl Globulin 4.6 gm/dL Albumin/Globulin Ratio 0.6 L (1-2) Urine Color Yellow (Yellow) Urine Appearance Slt cloudy H (Clear) Urine pH 6.0 (5.0-8.0) Ur Specific [place] > or = 1.030 (1.005-1.030) Urine Protein 2+ H (Negative) Urine Glucose (UA) Negative (Negative) Urine Ketones Negative (Negative) Urine Occult Blood 3+ H (Negative) Urine Nitrite Positive H (Negative) Urine Bilirubin 1+ H (Negative) Urine Urobilinogen 1.0 (0.2-1.0) Ur Leukocyte Esterase Negative (Negative) Urine RBC 10-20 H (0-5) /hpf Urine WBC 0-5 (0-5) /hpf Ur Epithelial Cells 0-5 (0-5) /hpf Urine Bacteria Moderate H (FEW) /hpf Urine Mucus Few (FEW) /hpf 05/11/19 05/11/19 05/11/19 Range/Units 17:30 18:09 18:11 WBC 6.91 (3.98-10.04) K/mm3 RBC 4.52 (3.98-5.22) M/mm3 Hgb 11.8 (11.2-15.7) gm/L Hct 43.6 (34.1-44.9) % MCV 96.5 H (79.4-94.8) fl MCH 26.1 (25.6-32.2) pg MCHC 27.1 L (32.2-35.5) g/dl RDW Std Deviation 64.4 H (36.4-46.3) fL Plt Count 148 L (182-369) K/mm3 MPV 12.4 H (9.4-12.3) fl Neutrophils % (Manual) 75 H (40-60) % Band Neutrophils % 0 (0-10) % Lymphocytes % (Manual) 22 (20-40) % Atypical Lymphs % 0 % Monocytes % (Manual) 2 (2-10) % Eosinophils % (Manual) 1 (0.7-5.8) % Basophils % (Manual) 0 L (0.1-1.2) Platelet Estimate Decreased Plt Morphology Comment Normal Hypochromasia 2+ moderate Microcytosis 1+ slight Target Cells 1+ slight Tear Drop Cells 1+ slight RBC Morph Comment Not Reportable ESR (0-20) mm/hr PT (9.7-12.0) SECONDS INR APTT (22-31) SECONDS Puncture Site Lt radial ABG pH 7.14 L* (7.35-7.45) ABG pCO2 146.9 H* (35.0-45.0) mmHg ABG pO2 165.0 H* (80.0-100.0) mmHg ABG HCO3 47.4 H (22.0-26.0) meq/L ABG O2 Saturation 99.3 H (96.0-97.0) % ABG Base Excess 13.1 H (-2-2.0) Obie Test Positive A-a Gradient 366 mmHg O2 Delivery Device Bipap Oxygen Flow Rate FiO2 100.00 (21.00-100.00) % Sodium (136-145) mEq/L Potassium (3.5-5.1) mEq/L Chloride (98-107) mEq/L Carbon Dioxide (21-32) mEq/L Anion Gap (5-15) BUN (7-18) mg/dL Creatinine (0.55-1.02) mg/dL Est Cr Clr Drug Dosing mL/min Estimated GFR (MDRD) (>60) mL/min BUN/Creatinine Ratio (14-18) Glucose (74-106) mg/dL Lactic Acid (0.4-2.0) mmol/L Calcium (8.5-10.1) mg/dL Magnesium (1.8-2.4) mg/dl Total Bilirubin (0.2-1.0) mg/dL AST (15-37) U/L ALT (14-59) U/L Alkaline Phosphatase (46-116) U/L CK-MB (CK-2) (0-3.6) ng/ml Troponin I (0.00-0.056) ng/mL C-Reactive Protein (<1.0) mg/dL NT-Pro-B Natriuret Pep 1791 H (0-125) pg/mL Total Protein (6.4-8.2) g/dl Albumin (3.4-5.0) g/dl Globulin gm/dL Albumin/Globulin Ratio (1-2) Urine Color (Yellow) Urine Appearance (Clear) Urine pH (5.0-8.0) Ur Specific [place] (1.005-1.030) Urine Protein (Negative) Urine Glucose (UA) (Negative) Urine Ketones (Negative) Urine Occult Blood (Negative) Urine Nitrite (Negative) Urine Bilirubin (Negative) Urine Urobilinogen (0.2-1.0) Ur Leukocyte Esterase (Negative) Urine RBC (0-5) /hpf Urine WBC (0-5) /hpf Ur Epithelial Cells (0-5) /hpf Urine Bacteria (FEW) /hpf Urine Mucus (FEW) /hpf 05/11/19 05/11/19 05/11/19 Range/Units 18:11 18:11 18:11 WBC (3.98-10.04) K/mm3 RBC (3.98-5.22) M/mm3 Hgb (11.2-15.7) gm/L Hct (34.1-44.9) % MCV (79.4-94.8) fl MCH (25.6-32.2) pg MCHC (32.2-35.5) g/dl RDW Std Deviation (36.4-46.3) fL Plt Count (182-369) K/mm3 MPV (9.4-12.3) fl Neutrophils % (Manual) (40-60) % Band Neutrophils % (0-10) % Lymphocytes % (Manual) (20-40) % Atypical Lymphs % % Monocytes % (Manual) (2-10) % Eosinophils % (Manual) (0.7-5.8) % Basophils % (Manual) (0.1-1.2) Platelet Estimate Plt Morphology Comment Hypochromasia Microcytosis Target Cells Tear Drop Cells RBC Morph Comment ESR 33 H (0-20) mm/hr PT 11.0 (9.7-12.0) SECONDS INR 1.01 APTT 26 (22-31) SECONDS Puncture Site ABG pH (7.35-7.45) ABG pCO2 (35.0-45.0) mmHg ABG pO2 (80.0-100.0) mmHg ABG HCO3 (22.0-26.0) meq/L ABG O2 Saturation (96.0-97.0) % ABG Base Excess (-2-2.0) Obie Test A-a Gradient mmHg O2 Delivery Device Oxygen Flow Rate FiO2 (21.00-100.00) % Sodium (136-145) mEq/L Potassium (3.5-5.1) mEq/L Chloride (98-107) mEq/L Carbon Dioxide (21-32) mEq/L Anion Gap (5-15) BUN (7-18) mg/dL Creatinine (0.55-1.02) mg/dL Est Cr Clr Drug Dosing mL/min Estimated GFR (MDRD) (>60) mL/min BUN/Creatinine Ratio (14-18) Glucose (74-106) mg/dL Lactic Acid 1.1 (0.4-2.0) mmol/L Calcium (8.5-10.1) mg/dL Magnesium (1.8-2.4) mg/dl Total Bilirubin (0.2-1.0) mg/dL AST (15-37) U/L ALT (14-59) U/L Alkaline Phosphatase (46-116) U/L CK-MB (CK-2) (0-3.6) ng/ml Troponin I (0.00-0.056) ng/mL C-Reactive Protein (<1.0) mg/dL NT-Pro-B Natriuret Pep (0-125) pg/mL Total Protein (6.4-8.2) g/dl Albumin (3.4-5.0) g/dl Globulin gm/dL Albumin/Globulin Ratio (1-2) Urine Color (Yellow) Urine Appearance (Clear) Urine pH (5.0-8.0) Ur Specific [place] (1.005-1.030) Urine Protein (Negative) Urine Glucose (UA) (Negative) Urine Ketones (Negative) Urine Occult Blood (Negative) Urine Nitrite (Negative) Urine Bilirubin (Negative) Urine Urobilinogen (0.2-1.0) Ur Leukocyte Esterase (Negative) Urine RBC (0-5) /hpf Urine WBC (0-5) /hpf Ur Epithelial Cells (0-5) /hpf Urine Bacteria (FEW) /hpf Urine Mucus (FEW) /hpf Meds: Medications Generic Name Dose Route Start Last Admin Trade Name Freq PRN Reason Stop Dose Admin Diltiazem HCl 125 mg/ Sodium 125 mls @ 10 mls/hr 05/11/19 17:30 05/11/19 17: 40 Chloride IV 10 mg/hr ASDIRECTED JOHNATHAN 10 mls/hr Administration 10 MG/HR Propofol 100 mls @ 50.349 mls/hr 05/11/19 19:32 05/11/19 20:22 Diprivan 100 Ml IV 25 mcg/kg/min TITRATE JOHNATHAN 25.174 mls/hr Titration Protocol 50 MCG/KG/MIN Discontinued Medications Generic Name Dose Route Start Last Admin Trade Name Freq PRN Reason Stop Dose Admin Albuterol Confirm 05/11/19 19:21 05/11/19 19:34 Proventil Neb Soln Administered 05/11/19 19:22 Not Given Dose 2.5 mg .ROUTE .STK-MED ONE Diltiazem HCl 10 mg 05/11/19 17:18 05/11/19 17:36 Cardizem IVPUSH 05/11/19 17:19 10 mg ONETIME ONE Administration Etomidate 51 mg 05/11/19 19:03 05/11/19 19:03 Amidate IVPUSH 05/11/19 19:04 51 mg ONETIME ONE Administration Furosemide 60 mg 05/11/19 17:59 05/11/19 18:14 Lasix IVPUSH 05/11/19 18:00 60 mg NOW ONE Administration Furosemide Confirm 05/11/19 19:19 05/11/19 19:34 Lasix Administered 05/11/19 19:20 Not Given Dose 80 mg .ROUTE .STK-MED ONE Furosemide 80 mg 05/11/19 19:21 05/11/19 19:21 Lasix IVPUSH 05/11/19 19:22 80 mg NOW ONE Administration Propofol Confirm 05/11/19 19:25 05/11/19 19:34 Diprivan 100 Ml Administered 05/11/19 19:26 Not Given Dose 100 mls @ as directed .ROUTE .STK-MED ONE Lidocaine HCl 150 mg 05/11/19 19:04 05/11/19 19:50 Xylocaine 2% IVPUSH 05/11/19 19:05 Not Given ONETIME ONE Lidocaine HCl 150 ml 05/11/19 19:04 05/11/19 20:00 Lidocaine 1% .XX 05/11/19 19:05 Not Given ONETIME ONE Lidocaine HCl 15 ml 05/11/19 19:04 05/11/19 19:04 Lidocaine 1% .XX 05/11/19 19:05 15 ml ONETIME ONE Administration Midazolam HCl 3 mg 05/11/19 19:23 05/11/19 19:53 Versed 1 Mg/Ml IVPUSH 05/11/19 19:24 Not Given ONETIME ONE Midazolam HCl 3 mg 05/11/19 19:23 05/11/19 19:23 Versed 1 Mg/Ml IVPUSH 05/11/19 19:24 3 mg ONETIME ONE Administration Succinylcholine Chloride 250 mg 05/11/19 19:04 05/11/19 19:04 Quelicin IV 05/11/19 19:05 250 mg ONETIME ONE Administration Vecuronium [place] 17 mg 05/11/19 19:24 05/11/19 19:24 Vecuronium IVPUSH 05/11/19 19:25 17 mg ONETIME ONE Administration - Radiology Interpretation Free Text/Narrative:: 53-year-old female of [place] ancestry presents to the ED per [place] [facility]. Chief complaint is dyspnea. Apparently O2 sats were in the 70s when the paramedics arrived. Patient is normally on 2-3 L at all times. She apparently has a diagnosis of end-stage COPD with mild congestive failure. Apparently she was just in hospital in [place] in [place] and was discharged 2 days ago but I can't confirm this. Patient is in severe respiratory distress speaking only in one or 2 word sentences and appears to be confused I suspect due to hypercarbia. Her no outward signs of head trauma. Patient is morbidly obese with weight of around 367 pounds. There is no mention her notes of sleep apnea syndrome. Servat for COPD and congestive heart failure. She does not have a fever. He was placed on 5 L/m by nasal cannula to achieve sats of 94%. ABGs will be done at this level and then decision made as to need for BiPAP although this appears inevitable. Could not get out of her whether or not she wished to be intubated if it came to that. - Re-Assessments/Exams Free Text/Narrative Re-Assessment/Exam: 05/11/19 16:50: Initial blood gases reveal a pH of 7. 18. PCO2 is elevated at 122.4. PaO2 73.0. This is on 4.5 L/m by nasal cannula. Decision made to place her on BiPAP with high pressure starting at 15/10. FiO2 will be 40%. ABGs will be done in 40 minutes or so after she's been on BiPAP for a while. 05/11/19 17:10: ECG reveals atrial fibrillation with rapid ventricular rate. Averages from 92-160/m. Current rate is 128/m. There is a right axis deviation of 130. There is a left posterior fascicular block pattern. I do not see any significant ST segment changes to suggest ischemia. There is decreased voltage in both limb and precordial leads. Patient will be started on Cardizem I'm 10 mg IV bolus then 10 mg per hour. Chest x-ray, done by portable technique shows a massively enlarged heart with the left cardiac margin abutting the left ribs. There there is a hazy infiltrate right lower lobe and I believe a small pleural effusion. Cannot rule out pneumonia at this time. There appears to be a very prominent thoracic aorta. Patient will be given Lasix 60 mg IV now. She is usually on 40 mg twice a day. 05/11/19 17:55 urinalysis is back which was obtained by catheterization rather miraculously due to the patient's very large pannus. Does indicate that she has a grayish discoloration in both inguinal folds just above significant candidiasis. Urinalysis shows 2+ proteinuria 3+ occult blood cells. Nitrate positive. Bilirubin is 1+. Leukocyte Estrace however it was negative the slide shows 10-20 RBCs per power field but no white cells. There are mild/moderate bacteria evident. Currently her heart rate is down to 100/m. BP is 111/86. Sats are 100% and she seems to be tolerating the BiPAP quite well. She is due for repeat ABGs. 05/11/19 18:20 her second ABG has come back worse on the first with a pH of 7.14. Her PCO2 is 146.9 which is worse than the first one. Her PO2 is 165 which is an improvement. Of note she is on 100% oxygen at this time. This will be to reduce to 70% and I will increase her BiPAP settings to 20/15 from 15/10. O2 sats are 99.3%. I still have no other lab values at this time. 05/11/19 18:42 Patient has consented to being intubated. I will therefore plan on performing this.Labs reveal a normal white count at 6.91. Differential pending. Hemoglobin is 11.8 with hematocrit of 43.6. MCV is mildly elevated at 96.5. Platelet count is 140,000. PT is 11.0 with an INR 1.01. PTT is 26. Chemistry is pending. BNP is 1791. 05/11/19 19:46 Chemistry is now back. Sodium 142 with potassium 5.0. Chloride 103 with a bicarbonate 37. Anion gap is 7.0. BUN was 14 with a creatinine of 0.7. GFR is greater than 60. Glucose is 102 with a lactic acid of 1.1. Calcium is 9.1. Magnesium 2.1. Bilirubin 0.6 AST is 19 ALT is 23. Alk phosphatase 73. CK -MB fraction 0.6. Troponin I is less than 0.017. C-reactive protein is 0.6. BNP is mentioned above is 1791. Total protein is 7.5 albumin fraction 2.9. Patient has been intubated with a 7.5 ET tube on first attempt and it is maintained at 24 cm with the corner of her right lip. Chest x-ray reveals the ET tube to be in satisfactory position. Orogastric tube also in satisfactory position. She is now maintained on the ventilator. We could not properly ventilator initially. Using a tidal volume of 650. Rate is at 20. FiO2 of 70% maintaining sats of 100 %. PEEP is 5. 05/11/19 19:52 sats are staying at 100%. Monitor is reading a PCO2 of 54. 05/11/19 20:04 spoke through the one call nurse at [facility] in [place] to Dr. Kvng Mello who is the flyer repairer on-call. He has accepted care of this patient to the intensive care unit. We will arrange transport tentatively by ground ambulance but we may have to fly her due to lack of staff. 05/11/19 20:39 propofol drip is currently running at 25 mcg/kg/m. Sugars currently 110/76. O2 sats 97% to 98% with FiO2 of 50% on the vent. Heart rate is 85. Cardizem drip is still running at 10 mg per hour. X-rays of been sent to [facility] by PACs Departure - Departure Time of Disposition: 20:41 Disposition: DC/Tfer to Acute Hospital 02 Condition: Serious Clinical Impression: Chronic atrial fibrillation with RVR Respiratory failure with hypoxia and hypercapnia Qualifiers: Chronicity: acute on chronic Qualified Code(s): J96.21 - Acute and chronic respiratory failure with hypoxia; J96.22 - Acute and chronic respiratory failure with hypercapnia CHF exacerbation Qualifiers: Heart failure type: combined systolic and diastolic Qualified Code(s): I50.43 - Acute on chronic combined systolic (congestive) and diastolic (congestive) heart failure - Discharge Information Referrals: PCP,None [Primary Care Provider] - Forms: ED Department Discharge Additional Instructions: Patient transferred to [facility] in [facility] under the care of Dr. Kvng Mello flyer repairer. She is to be a direct admission to the intensive care unit. - My Orders Last 24 Hours: My Active Orders 05/11/19 16:16 EKG Documentation Completion [RC] STAT 05/11/19 16:17 Oxygen Therapy [RC] ASDIRECTED Blood Culture x2 Reflex Set [OM.PC] Stat 05/11/19 16:18 Urinary Catheter Assessment [RC] ASDIRECTED 05/11/19 16:30 Doshi Catheter Insertion [Insert Urinary Catheter] [OM.PC] Q24H 05/11/19 16:56 CULTURE BLOOD [BC] Stat 05/11/19 17:30 CULTURE BLOOD [BC] Stat Diltiazem 125 mg Sodium Chloride 0.9% [Normal Saline] 100 ml IV ASDIRECTED 05/11/19 19:32 Propofol [Diprivan 100 ML] 100 ml IV TITRATE Desired Level of Sedation (RASS) [AST] CONTINUOUS 05/11/19 19:45 RASS Sedation Scale [RC] ASDIRECTED - Assessment/Plan Last 24 Hours: My Active Orders 05/11/19 16:16 EKG Documentation Completion [RC] STAT 05/11/19 16:17 Oxygen Therapy [RC] ASDIRECTED Blood Culture x2 Reflex Set [OM.PC] Stat 05/11/19 16:18 Urinary Catheter Assessment [RC] ASDIRECTED 05/11/19 16:30 Doshi Catheter Insertion [Insert Urinary Catheter] [OM.PC] Q24H 05/11/19 16:56 CULTURE BLOOD [BC] Stat 05/11/19 17:30 CULTURE BLOOD [BC] Stat Diltiazem 125 mg Sodium Chloride 0.9% [Normal Saline] 100 ml IV ASDIRECTED 05/11/19 19:32 Propofol [Diprivan 100 ML] 100 ml IV TITRATE Desired Level of Sedation (RASS) [AST] CONTINUOUS 05/11/19 19:45 RASS Sedation Scale [RC] ASDIRECTED
[2019-05-11] MEDS ORDERED: Diltiazem 50 MG/10 ML SDV IVPUSH ONE (17:18)
[2019-05-11] MEDS ORDERED: Diltiazem 125 MG in Sodium Chloride 0.9% 100 ML IV SCH (17:30)
[2019-05-11] MEDS ORDERED: Furosemide 40 MG/4 ML VIAL IVPUSH ONE ×2 (17:59→19:21)
--- NOTE | 2019-05-11 18:23 | CR ---
Chest: Portable view of the chest was obtained. Comparison: Prior chest x-ray of 08/06/18. Heart is enlarged. Aorta poorly seen and difficult to exclude nonvisualized aneurysm. Slight atelectasis within the right lung base is seen. Chronic pulmonary vascular congestion is seen. Bony structures are grossly intact. Impression: 1. Cardiomegaly with chronic pulmonary vascular congestion. 2. Aorta not seen and cannot exclude aortic aneurysm. 3. Mild atelectasis within the right lung base. Diagnostic code #3
[2019-05-11] MEDS ORDERED: Etomidate 2 MG/ML 20 ML SDV IVPUSH ONE (19:03)
[2019-05-11] MEDS ORDERED: Lidocaine 2% 100 MG/5 ML Syringe IVPUSH ONE (19:04)
[2019-05-11] MEDS ORDERED: Lidocaine 1% 2 ML SDV ONE ×2 (19:04)
[2019-05-11] MEDS ORDERED: Succinylcholine 200 MG/10 ML MDV IV ONE (19:04)
[2019-05-11] MEDS ORDERED: Furosemide 40 MG/4 ML VIAL ONE (19:19)
[2019-05-11] MEDS ORDERED: Albuterol 0.083% 2.5 MG/3 ML Neb Soln ONE (19:21)
[2019-05-11] MEDS ORDERED: Midazolam 1 MG/ML 2 ML SDV IVPUSH ONE (19:23)
[2019-05-11] MEDS ORDERED: Midazolam 1 MG/ML 5 ML SDV IVPUSH ONE (19:23)
--- NOTE | 2019-05-11 20:05 | CR ---
Chest: Portable view of the chest was obtained. Comparison: Previous chest x-ray performed earlier on the same day (5:46 PM). Endotracheal tube is now seen. Tip lies at the level of the clavicles. Nasogastric tube is seen coursing off the inferior edge of the film into the stomach. Heart is enlarged. Small right-sided pleural effusion and probable left-sided pleural effusion. Pulmonary vessels are slightly congested. Continued atelectasis within the right base is seen. Aorta not visualized as described on prior chest x-ray. Impression: 1. Tip of endotracheal tube at the level of clavicles. 2. Nasogastric tube coursing off the inferior to the film. 3. Chronic increased pulmonary vessels and cardiomegaly. As mentioned on prior chest x-ray, aorta is not well seen and difficult to exclude aneurysm. Diagnostic code #3
== END 2019-05-11 21:35 ==
LOC: JD.ED 16:02
DX: J96.21 Acute and chronic respiratory failure with hypoxia (principal); I11.0 Hypertensive heart disease with heart failure; I50.43 Acute on chronic combined systolic (congestive) and diastolic (congestive) heart failure; I48.2 Chronic atrial fibrillation; J44.9 Chronic obstructive pulmonary disease, unspecified; K21.9 Gastro-esophageal reflux disease without esophagitis; E66.9 Obesity, unspecified; Z79.899 Other long term (current) drug therapy; Z79.51 Long term (current) use of inhaled steroids; Z90.5 Acquired absence of kidney; Z79.82 Long term (current) use of aspirin; Z90.49 Acquired absence of other specified parts of digestive tract; Z68.44 Body mass index [BMI] 60.0-69.9, adult
CPT/HCPCS: 31500; 36415; 36600; 51702; 71045; 80053; 81001; 82553; 82803; 83605; 83735; 83880; 84484; 85007; 85027; 85610; 85652; 85730; 86140; 87040; 93005; 94762; 96365; 96366; 96368; 96375; 96376; 99285; J0330; J1940; J2001; J2250; J2704; J3490; J7030

== ENCOUNTER 2020-09-10 22:15 | Inpatient (IN) | payer SELFPAY ==
[2020-09-10] MEDS ORDERED: Albuterol/Ipratropium 3.0-0.5 MG/3 ML Neb Soln NEB ONE (22:44)
[2020-09-10] MEDS ORDERED: Diltiazem 100 MG in Sodium Chloride 0.9% 100 ML IV SCH (22:45)
[2020-09-10] MEDS ORDERED: Diltiazem 50 MG/10 ML SDV IVPUSH STA (22:45)
--- NOTE | 2020-09-10 22:49 | EDM.PDOC ---
ED HPI GENERAL MEDICAL PROBLEM - General Chief Complaint: Respiratory Problem Stated Complaint: MONICOE AMB Time Seen by Provider: 09/10/20 22:26 Source of Information: Reports: Patient History Limitations: Reports: No Limitations - History of Present Illness INITIAL COMMENTS - FREE TEXT/NARRATIVE: Ms. Riaz Arizmendi is a pleasant 55-year-old woman who is now brought to the ED by E with a complaint of dyspnea and lightheadedness since last night. She also reports a cough occasionally productive of unknown colored sputum for the past 2 days. She states that she occasionally has been wheezing. No recent fever, nausea, vomiting, constipation, diarrhea, or urinary symptoms. She states that she is chronically on 2 L of oxygen per nasal cannula to treat presumed COPD, but that she increased it to 4 L, without improvement of her symptoms. No other home treatments. The patient states that she has had similar symptoms numerous times in the past, but does not know with the diagnosed medical cause was. EMS placed the patient on a nonrebreather mask, which was returned to a nasal cannula upon arrival to the ED. Here in the ED, the patient's initial BP is found to be mildly elevated at 133/103 with a tachycardia of 103 bpm and tachypnea of 23 rpm. She is afebrile, saturating 94% on 2 L of oxygen per nasal cannula. Prior to last night, the patient denies having a recent fever, chills, sore throat, ear pain, nasal or sinus congestion, cough, dyspnea, chest pain, palpitations, nausea, vomiting, constipation, diarrhea, abdominal pain, urinary symptoms, recent weight gain or weight loss, recent bloody bowel movements or black bowel movements, recent joint aches, headaches, or rashes. The patient's PCP is at [facility]. She has not received an influenza vaccine this season, but agreed to receive one here in the ED. Middle Pain Score (Numeric/FACES): 0 - Related Data Allergies Allergy/AdvReac Type Severity Reaction Status Date / Time No Known Allergies Allergy Verified 09/10/20 22:23 Home Meds: Home Meds Fluticasone/Salmeterol [Advair Diskus 250-50] 1 puff INH BID #1 inhaler 09/07/16 [Rx] Furosemide [Lasix] 40 mg PO BID 11/21/16 [History] Omeprazole 1 tab PO DAILY 11/21/16 [History] Albuterol/Ipratropium [DuoNeb 3.0-0.5 MG/3 ML] 3 ml NEB Q6H #30 neb 08/15/17 [Rx] Aspirin 81 mg PO DAILY 11/09/17 [History] Losartan [Cozaar] 25 mg PO BEDTIME #30 tablet 11/13/17 [Rx] Nystatin [Nystop] 2 gm TOP TID #60 bottle 11/13/17 [Rx] Albuterol/Ipratropium [Combivent Respimat] 4 gm IH Q4H PRN #1 aer.w.adap 04/05/18 [Rx] Apixaban [Eliquis] 5 mg PO BID #60 tablet 04/05/18 [Rx] Metoprolol Tartrate [Lopressor] 25 mg PO Q12H #60 tablet 04/05/18 [Rx] Spironolactone [Aldactone] 25 mg PO DAILY #30 tab 04/05/18 [Rx] atorvaSTATin Calcium [Atorvastatin Calcium] 40 mg PO BEDTIME #30 tablet 04/05/18 [Rx] modafiniL [Provigil] 200 mg PO DAILY #30 tablet 04/05/18 [Rx] Past Medical History HEENT History: Reports: Impaired Vision (wears glasses) Cardiovascular History: Reports: Afib (chronic), Heart Failure, Hypertension Respiratory History: Reports: COPD (suspected, not tested) Gastrointestinal History: Reports: GERD, Hemorrhoids Genitourinary History: Reports: Other (See Below) (Solitary kidney following nephrectomy) Musculoskeletal History: Reports: Arthritis, Fracture (right 5th finger) Endocrine/Metabolic History: Reports: Obesity/BMI 30+ Oncologic (Cancer) History: Reports: Renal (s/p right nephrectomy) - Past Surgical History Respiratory Surgical History: Reports: Tracheostomy Oncologic Surgical History: Reports: Other (See Below) (Right nephrectomy) Social & Family History - Tobacco Use Tobacco Use Status *Q: Current Every Day Tobacco User Years of Tobacco use: 38 Packs/Tins Daily: 1 Packs/Tins Daily Comment: Down from 1.5 ppd - Caffeine Use Caffeine Use: Reports: Coffee, Soda - Alcohol Use Alcohol Use History: Yes Alcohol Use Frequency: Socially - Recreational Drug Use Recreational Drug Use: No - Living Situation & Occupation Living situation: Reports: , with Family Occupation: Unemployed ED ROS GENERAL - Review of Systems Review Of Systems: Comprehensive ROS is negative, except as noted in HPI. ED EXAM, GENERAL - Physical Exam Exam: See Below Exam Limited By: No Limitations General Appearance: Alert, WD/WN, No Apparent Distress Eye Exam: Bilateral Eye: EOMI, Normal Inspection Ears: Normal External Exam, Hearing Grossly Normal Nose: Normal Inspection Throat/Mouth: Normal Inspection, Normal Lips, Normal Voice, No Airway Compromise Head: Atraumatic, Normocephalic Neck: Normal Inspection, Supple, Full Range of Motion Respiratory/Chest: No Respiratory Distress, No Accessory Muscle Use, Wheezing (expiratory, throughout). No: Decreased Breath Sounds, Crackles, Rhonchi, Stridor, Prolonged Expiration Cardiovascular: Normal Peripheral Pulses, No Gallop, No JVD, No Murmur, No Rub, Tachycardia (regular) Peripheral Pulses: 3+: Radial (L), Radial (R) GI/Abdominal: Normal Bowel Sounds, Soft, Non-Tender, No Organomegaly, No Distention, No Abnormal Bruit, No Mass Back Exam: Normal Inspection, Full Range of Motion, NT Extremities: Normal Range of Motion, Normal Capillary Refill, Other (Bilateral leg hyperpigmentation and brawny edema, consistent with chronic venous stasis changes) Neurological: Alert, Oriented, Normal Cognition, No Motor/Sensory Deficits Psychiatric: Normal Affect Skin Exam: Warm, Dry, Intact, Normal Color, No Rash #1 Interpretation EKG Date: 09/10/20 Time: 22:26 Rhythm: A-Fib Rate (Beats/Min): 131 [place]: Normal P-Wave: Absent QRS: Other (Late transition) ST-T: Normal QT: Prolonged (QTc 485 ms) Comparison: No Change (05/11/2019) Course - Vital Signs Last Recorded V/S: Last Vital Signs Temp 36.6 C 09/10/20 22:19 Pulse 103 H 09/10/20 22:19 Resp 23 H 09/10/20 22:19 BP 133/101 H 09/10/20 22:19 Pulse Ox 92 L 09/11/20 00:01 Orthostatic Blood Pressure [ 116/85 Sitting] Orthostatic Blood Pressure [ 105/75 Supine] - Orders/Labs/Meds Orders: Active Orders 24 hr Category Date Time Status BIPAP Adult [RT BiPAP/CPAP] [RC] ASDIRECTED Care 09/10/20 23:41 Active EKG Documentation Completion [RC] ASDIRECTED Care 09/10/20 22:25 Active Orthostatic Vital Signs [RC] STAT Care 09/10/20 22:42 Active RT Aerosol Therapy [RC] ASDIRECTED Care 09/10/20 22:44 Active Chest 1V Frontal [CR] Stat Exams 09/10/20 22:40 Taken CULTURE BLOOD [BC] Stat Lab 09/10/20 23:20 Received CULTURE BLOOD [BC] Stat Lab 09/10/20 23:30 Received Bumetanide [Bumex] Med 09/11/20 00:16 Once 1 mg IVPUSH ONETIME ONE Diltiazem [Cardizem] 100 mg Med 09/10/20 22:45 Active Sodium Chloride 0.9% [Normal Saline] 100 ml IV TITRATE Blood Culture x2 Reflex Set [OM.PC] Stat Oth 09/10/20 22:43 Ordered EKG 12 Lead [EK] Stat Ther 09/10/20 22:24 Ordered Medication Orders Diltiazem HCl 100 mg/ Sodium (Chloride) 100 mls @ 10 mls/hr IV TITRATE JOHNATHAN; Protocol Last Admin: 09/10/20 22:55 Dose: 10 mg/hr, 10 mls/hr Documented by: KARTHIKEYAN Labs: Laboratory Tests 09/10/20 09/10/20 09/10/20 Range/Units 22:23 22:30 22:30 WBC 7.32 (3.98-10.04) K/mm3 RBC 4.58 (3.98-5.22) M/mm3 Hgb 12.4 (11.2-15.7) gm/dl Hct 45.2 H (34.1-44.9) % MCV 98.7 H (79.4-94.8) fl MCH 27.1 (25.6-32.2) pg MCHC 27.4 L (32.2-35.5) g/dl RDW Std Deviation 60.9 H (36.4-46.3) fL Plt Count 112 L (182-369) K/mm3 MPV 11.2 (9.4-12.3) fl Neutrophils % (Manual) 75 H (40-60) % Band Neutrophils % 7 (0-10) % Lymphocytes % (Manual) 10 L (20-40) % Atypical Lymphs % 0 % Monocytes % (Manual) 7 (2-10) % Eosinophils % (Manual) 1 (0.7-5.8) % Basophils % (Manual) 0 L (0.1-1.2) Platelet Estimate Decreased Plt Morphology Comment Normal Hypochromasia 2+ moderate Anisocytosis 3+ marked Macrocytosis 2+ moderate RBC Morph Comment Not Reportable Puncture Site ABG pH (7.35-7.45) ABG pCO2 (35.0-45.0) mmHg ABG pO2 (80.0-100.0) mmHg ABG HCO3 (22.0-26.0) meq/L ABG O2 Saturation (96.0-97.0) % ABG Base Excess (-2-2.0) Obie Test A-a Gradient mmHg O2 Delivery Device Oxygen Flow Rate FiO2 (21.00-100.00) % Sodium 141 (136-145) mEq/L Potassium 4.9 (3.5-5.1) mEq/L Chloride 105 (98-107) mEq/L Carbon Dioxide 38 H (21-32) mEq/L Anion Gap 2.9 L (5-15) BUN 18 (7-18) mg/dL Creatinine 1.0 (0.55-1.02) mg/dL Est Cr Clr Drug Dosing 54.24 mL/min Estimated GFR (MDRD) 57 (>60) mL/min BUN/Creatinine Ratio 18.0 (14-18) Glucose 103 (74-106) mg/dL Lactic Acid (0.4-2.0) mmol/L Calcium 8.8 (8.5-10.1) mg/dL Magnesium 2.2 (1.8-2.4) mg/dl Total Bilirubin 0.7 (0.2-1.0) mg/dL AST 13 L (15-37) U/L ALT 18 (14-59) U/L Alkaline Phosphatase 83 (46-116) U/L Troponin I < 0.017 (0.00-0.056) ng/mL NT-Pro-B Natriuret Pep (0-125) pg/mL Total Protein 8.3 H (6.4-8.2) g/dl Albumin 3.1 L (3.4-5.0) g/dl Globulin 5.2 gm/dL Albumin/Globulin Ratio 0.6 L (1-2) TSH 3rd Generation 3.671 (0.358-3.74) uIU/mL Influenza Type A RNA Negative (NEGATIVE) Influenza Type B RNA Negative (NEGATIVE) SARS-CoV-2 RNA (LEONIDES) Negative (NEGATIVE) 09/10/20 09/10/20 09/10/20 Range/Units 22:30 23:12 23:20 WBC (3.98-10.04) K/mm3 RBC (3.98-5.22) M/mm3 Hgb (11.2-15.7) gm/dl Hct (34.1-44.9) % MCV (79.4-94.8) fl MCH (25.6-32.2) pg MCHC (32.2-35.5) g/dl RDW Std Deviation (36.4-46.3) fL Plt Count (182-369) K/mm3 MPV (9.4-12.3) fl Neutrophils % (Manual) (40-60) % Band Neutrophils % (0-10) % Lymphocytes % (Manual) (20-40) % Atypical Lymphs % % Monocytes % (Manual) (2-10) % Eosinophils % (Manual) (0.7-5.8) % Basophils % (Manual) (0.1-1.2) Platelet Estimate Plt Morphology Comment Hypochromasia Anisocytosis Macrocytosis RBC Morph Comment Puncture Site Rt radial ABG pH 7.26 L (7.35-7.45) ABG pCO2 86.4 H* (35.0-45.0) mmHg ABG pO2 65.0 L (80.0-100.0) mmHg ABG HCO3 37.6 H (22.0-26.0) meq/L ABG O2 Saturation 92.9 L (96.0-97.0) % ABG Base Excess 8.0 H (-2-2.0) Obie Test Positive A-a Gradient 83 mmHg O2 Delivery Device Nasal cannula Oxygen Flow Rate 4.0 FiO2 36.00 (21.00-100.00) % Sodium (136-145) mEq/L Potassium (3.5-5.1) mEq/L Chloride (98-107) mEq/L Carbon Dioxide (21-32) mEq/L Anion Gap (5-15) BUN (7-18) mg/dL Creatinine (0.55-1.02) mg/dL Est Cr Clr Drug Dosing mL/min Estimated GFR (MDRD) (>60) mL/min BUN/Creatinine Ratio (14-18) Glucose (74-106) mg/dL Lactic Acid 0.8 (0.4-2.0) mmol/L Calcium (8.5-10.1) mg/dL Magnesium (1.8-2.4) mg/dl Total Bilirubin (0.2-1.0) mg/dL AST (15-37) U/L ALT (14-59) U/L Alkaline Phosphatase (46-116) U/L Troponin I (0.00-0.056) ng/mL NT-Pro-B Natriuret Pep 2012 H (0-125) pg/mL Total Protein (6.4-8.2) g/dl Albumin (3.4-5.0) g/dl Globulin gm/dL Albumin/Globulin Ratio (1-2) TSH 3rd Generation (0.358-3.74) uIU/mL Influenza Type A RNA (NEGATIVE) Influenza Type B RNA (NEGATIVE) SARS-CoV-2 RNA (LEONIDES) (NEGATIVE) Meds: Medications Generic Name Dose Route Start Last Admin Trade Name Freq PRN Reason Stop Dose Admin Diltiazem HCl 100 mg/ Sodium 100 mls @ 10 mls/hr 09/10/20 22:45 09/10/20 22:55 Chloride IV 10 mg/hr TITRATE JOHNATHAN 10 mls/hr Administration Protocol 10 MG/HR Discontinued Medications Generic Name Dose Route Start Last Admin Trade Name Freq PRN Reason Stop Dose Admin Albuterol/Ipratropium 3 ml 09/10/20 22:44 09/10/20 22:59 Duoneb 3.0-0.5 Mg/3 Ml NEB 09/10/20 22:45 3 ml ONETIME ONE Administration Diltiazem HCl 10 mg 09/10/20 22:45 09/10/20 22:54 Cardizem IVPUSH 09/10/20 22:46 10 mg ONETIME STA Administration - Re-Assessments/Exams Free Text/Narrative Re-Assessment/Exam: 09/10/20 22:44 As above, the patient developed dyspnea and lightheadedness last night. An ECG obtained by EMS finds her to be in atrial fibrillation with RVR, confirmed by an ECG at triage. Examination reveals bilateral expiratory wheezes and tachycardia without murmur. The remainder of her exam is unremarkable. A swab for the SARS-CoV-2 virus and influenza were ordered at triage. I have ordered an extensive work-up that includes orthostatics, several blood tests, 2 sets of blood cultures, an ABG, and a portable chest x-ray. In the meantime, the patient will be given a DuoNeb, along with diltiazem 10 mg IVP and a drip to start at 10 mg/h. 09/10/20 23:33 The patient is not orthostatic. Portable chest radiograph reviewed. There is cardiomegaly with [place] vascular congestion. No pleural effusions seen on this AP view. No focal infiltrate however, there is atelectasis at the right base. No pneumothorax. Formal read per the Radiologist pending. The patient's CBC is remarkable for a Hct slightly elevated at 45.2, with a Hgb normal at 12.4. She has mild thrombocytopenia of 112,000. Her CMP is remarkable for a bicarbonate elevated at 38 with an anion gap low at 2.9, and the remainder of her CMP being unremarkable. Her magnesium level is within normal limits at 2.2. Her TSH is within normal limits at 3.671. Her troponin is undetectably low. Her pro-BNP is elevated at 2012. Her ABG represents a chronic respiratory acidosis with secondary metabolic alkalosis. Reviewing prior labs, I see that the patient's pro-BNP was 1791 on 05/11/2019. It appears that the patient's proBNP is always elevated, however, it has never previously been as high as 2012. Is on the above, I will start the patient on BiPAP. 09/11/20 00:14 The patient's lactic acid level is within normal limits at 0.8. Considering the above, it appears that the patient is suffering from a CHF exacerbation. The wheezing heard is likely "cardiac asthma". The patient's medication list includes oral furosemide 40 mg BID. Although her compliance to her medications is questionable, if the patient is in fact taking furosemide 40 mg BID, then additional furosemide is not probably a good choice of diuretic at this time. I have therefore ordered Bumex 1 mg IVP. 09/11/20 00:20 Test results discussed with the patient. I recommended admission to the hospital, and the patient is agreeable. Being on BiPAP alone does not necessitate an ICU admission, however, the diltiazem drip will. 09/11/20 00:[address] Pond at 00:21. He accepted the patient for admission to the ICU. Departure - Departure Time of Disposition: 00:24 Disposition: Admitted As Inpatient 65 Condition: Fair Clinical Impression: Acute exacerbation of CHF (congestive heart failure) Qualifiers: Heart failure type: combined systolic and diastolic Qualified Code(s): I50.43 - Acute on chronic combined systolic (congestive) and diastolic (congestive) heart failure - Discharge Information *PRESCRIPTION DRUG MONITORING PROGRAM REVIEWED*: Not Applicable *COPY OF PRESCRIPTION DRUG MONITORING REPORT IN PATIENT IVETTE: Not Applicable Forms: ED Department Discharge Sepsis Event Note (ED) - Evaluation Sepsis Screening Result: Possible Sepsis Risk - Focused Exam Vital Signs: Vital Signs Temp Pulse Resp BP Pulse Ox Pulse Ox Pulse Ox 09/11/20 00:01 92 L 09/10/20 22:44 89 L 09/10/20 22:19 36.6 C 103 H 23 H 133/101 H 94 L - My Orders Last 24 Hours: My Active Orders 09/10/20 22:24 EKG 12 Lead [EK] Stat 09/10/20 22:25 EKG Documentation Completion [RC] ASDIRECTED 09/10/20 22:40 Chest 1V Frontal [CR] Stat 09/10/20 22:42 Orthostatic Vital Signs [RC] STAT 09/10/20 22:43 Blood Culture x2 Reflex Set [OM.PC] Stat 09/10/20 22:44 RT Aerosol Therapy [RC] ASDIRECTED 09/10/20 22:45 Diltiazem [Cardizem] 100 mg Sodium Chloride 0.9% [Normal Saline] 100 ml IV TITRATE 09/10/20 23:20 CULTURE BLOOD [BC] Stat 09/10/20 23:30 CULTURE BLOOD [BC] Stat 09/10/20 23:41 BIPAP Adult [RT BiPAP/CPAP] [RC] ASDIRECTED 09/11/20 00:16 Bumetanide [Bumex] 1 mg IVPUSH ONETIME ONE - Assessment/Plan Last 24 Hours: My Active Orders 09/10/20 22:24 EKG 12 Lead [EK] Stat 09/10/20 22:25 EKG Documentation Completion [RC] ASDIRECTED 09/10/20 22:40 Chest 1V Frontal [CR] Stat 09/10/20 22:42 Orthostatic Vital Signs [RC] STAT 09/10/20 22:43 Blood Culture x2 Reflex Set [OM.PC] Stat 09/10/20 22:44 RT Aerosol Therapy [RC] ASDIRECTED 09/10/20 22:45 Diltiazem [Cardizem] 100 mg Sodium Chloride 0.9% [Normal Saline] 100 ml IV TITRATE 09/10/20 23:20 CULTURE BLOOD [BC] Stat 09/10/20 23:30 CULTURE BLOOD [BC] Stat 09/10/20 23:41 BIPAP Adult [RT BiPAP/CPAP] [RC] ASDIRECTED 09/11/20 00:16 Bumetanide [Bumex] 1 mg IVPUSH ONETIME ONE
[2020-09-10 23:11] LABS: CORONAVIRUS COVID-19 NAA NEGATIVE (NEGATIVE)
[2020-09-11] MEDS ORDERED: Bumetanide 1 MG/4 ML MDV IVPUSH ONE (00:16)
[2020-09-11] MEDS ORDERED: FLU VACC QS2020-21(6MOS UP)/PF 60 MCG/0.5 ML SYRINGE IM ONE (00:30)
[2020-09-11] MEDS ORDERED: Ondansetron 4 MG/2 ML SDV IV PRN (02:56)
[2020-09-11] MEDS ORDERED: Acetaminophen 325 MG Tab PO PRN (02:56)
[2020-09-11] MEDS ORDERED: Non-Formulary Medication 1 Each (Albuterol/Ipratropium 4 GM) IH PRN (02:59)
--- NOTE | 2020-09-11 03:07 | PCM.HP.2 ---
H&P History of Present Illness - General Date of Service: 09/11/20 Admit Problem/Dx: Admission Diagnosis/Problem Admission Diagnosis/Problem Congestive heart failure - History of Present Illness Initial Comments - Free Text/Narative: 55-year-old female who [facility] complaints of dyspnea and lightheadedness since last night. Unfortunately when I saw her in the ICU early this morning patient was unable to give me a history and we were unable to get a hold of her family, therefore the history was obtained through emergency department notes and nursing report. She apparently had an occasional cough over the past 2 days that was tinged with colored sputum but no reports of blood. She denied any fever, nausea, vomiting, constipation, diarrhea, or urinary symptoms. She is on 2 L via nasal cannula chronically to treat what is assumed to be COPD. Recently she increased it to 4 without improvement in her symptoms. In route to the ER place was placed on nonrebreather by EMS. Patient was placed on 2 L when she arrived at the emergency department. In the emergency department had to increase her O2 to 4 L/min and ABG showed a pH 7.26, PCO2 86.4, bicarb 37.6, PO2 65. Patient was placed on BiPAP at pressures of 10/4. ECG obtained by EMS and then a repeat done by the ED staff found her to be in atrial fibrillation. She had an elevated pro BNP of 2011. Diltiazem 10 mg IV push was given and patient was started on a diltiazem drip. Patient was given 1 mg of Bumex and then transferred to the ICU. Middle Pain Score (Numeric/FACES): 0 - Related Data Allergies/Adverse Reactions: Allergies Allergy/AdvReac Type Severity Reaction Status Date / Time No Known Allergies Allergy Verified 09/10/20 22:23 Home Medications: Home Meds Fluticasone/Salmeterol [Advair Diskus 250-50] 1 puff INH BID #1 inhaler 09/07/16 [Rx] Furosemide [Lasix] 40 mg PO BID 11/21/16 [History] Omeprazole 1 tab PO DAILY 11/21/16 [History] Albuterol/Ipratropium [DuoNeb 3.0-0.5 MG/3 ML] 3 ml NEB Q6H #30 neb 08/15/17 [Rx] Aspirin 81 mg PO DAILY 11/09/17 [History] Losartan [Cozaar] 25 mg PO BEDTIME #30 tablet 11/13/17 [Rx] Nystatin [Nystop] 2 gm TOP TID #60 bottle 11/13/17 [Rx] Albuterol/Ipratropium [Combivent Respimat] 4 gm IH Q4H PRN #1 aer.w.adap [Rx] Apixaban [Eliquis] 5 mg PO BID #60 tablet 04/05/18 [Rx] Metoprolol Tartrate [Lopressor] 25 mg PO Q12H #60 tablet 04/05/18 [Rx] Spironolactone [Aldactone] 25 mg PO DAILY #30 tab 04/05/18 [Rx] atorvaSTATin Calcium [Atorvastatin Calcium] 40 mg PO BEDTIME #30 tablet 04/05/18 [Rx] modafiniL [Provigil] 200 mg PO DAILY #30 tablet 04/05/18 [Rx] Isosorbide Mononitrate [Isosorbide Mononitrate ER] 60 mg PO DAILY 09/11/20 [History] Past Medical History HEENT History: Reports: Impaired Vision Other HEENT History: GLASSES Cardiovascular History: Reports: Afib, Heart Failure, Hypertension Respiratory History: Reports: COPD, Sleep Apnea, SOB Gastrointestinal History: Reports: GERD, Hemorrhoids Genitourinary History: Reports: Other (See Below) Other Genitourinary History: Nephrectomy [employer] History: Reports: Other OB/BYN History: 3 children vaginally Musculoskeletal History: Reports: Arthritis, Fracture Other Musculoskeletal History: right pinky Neurological History: Reports: Brain Injury, Head Trauma, Migraines Psychiatric History: Reports: None Endocrine/Metabolic History: Reports: Obesity/BMI 30+ Hematologic History: Reports: None Immunologic History: Reports: None Oncologic (Cancer) History: Reports: Renal Other Oncologic History: Kidney Dermatologic History: Reports: Other (See Below) Other Dermatologic History: 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 she has several pitting scars to her abdomen some small round areas that are darker in color ...looks like possibly boil scars. - Infectious Disease History Infectious Disease History: Reports: None - Past Surgical History Head Surgeries/Procedures: Reports: None HEENT Surgical History: Reports: None Cardiovascular Surgical History: Reports: None Respiratory Surgical History: Reports: Tracheostomy GI Surgical History: Reports: Cholecystectomy Female Surgical History: Reports: D&C, Nephrectomy Other Female Surgeries/Procedures: Pt had a kidney transplant. Endocrine Surgical History: Reports: None Musculoskeletal Surgical History: Reports: None Oncologic Surgical History: Reports: Other (See Below) Dermatological Surgical History: Reports: None Social & Family History - Family History Family Medical History: No Pertinent Family History Cardiac: Reports: Afib, High Cholesterol, Hypertension, [place] Respiratory: Reports: COPD GI: Reports: None OBGYN: Reports: Endocrine/Metabolic: Reports: Diabetes, type II - Tobacco Use Tobacco Use Status *Q: Light Tobacco User Years of Tobacco use: 38 Packs/Tins Daily: 0.2 Tobacco Use Comment: pt would like a nicotine patch - Caffeine Use Caffeine Use: Reports: Coffee - Recreational Drug Use Recreational Drug Use: No - Living Situation & Occupation Living situation: Reports: , with Family Occupation: Unemployed H&P Review of Systems - Review of Systems: Review Of Systems: Comprehensive ROS is negative, except as noted in HPI. Exam - Exam Exam: See Below - Vital Signs Vital Signs: Last Vital Signs Temp 97.8 F 09/10/20 22:19 Pulse 78 09/11/20 01:21 Resp 20 09/11/20 01:21 BP 129/95 H 09/11/20 01:21 Pulse Ox 97 09/11/20 02:42 Orthostatic Blood Pressure [ 116/85 Sitting] Orthostatic Blood Pressure [ 105/75 Supine] Weight: 378 lb - Exam Quality Assessment: Supplemental Oxygen General: Lethargic HEENT: Conjunctiva Clear, EACs Clear, Hearing Intact, Mucosa Moist & [place] Neck: Supple, Trachea Midline, 2 Lungs: Decreased Breath Sounds, Crackles, Wheezing. No: Normal Respiratory Effort Cardiovascular: Irregular Rhythm (And rate) GI/Abdominal Exam: Normal Bowel Sounds, Soft, Non-Tender, No Distention Back Exam: Normal Inspection Extremities: Normal Inspection, Normal Range of Motion, Non-Tender, Normal Capillary Refill, Pedal Edema (2-3+ pitting edema) Skin: Other (Lower abdominal wall is erythematous, tender, and indurated. It is weeping clear fluid.) Neurological: Cranial Nerves Intact - Patient Data Lab Results Last 24 hrs: Laboratory Results - last 24 hr 09/10/20 09/10/20 09/10/20 Range/Units 22:23 22:30 22:30 WBC 7.32 (3.98-10.04) K/mm3 RBC 4.58 (3.98-5.22) M/mm3 Hgb 12.4 (11.2-15.7) gm/dl Hct 45.2 H (34.1-44.9) % MCV 98.7 H (79.4-94.8) fl MCH 27.1 (25.6-32.2) pg MCHC 27.4 L (32.2-35.5) g/dl RDW Std Deviation 60.9 H (36.4-46.3) fL Plt Count 112 L (182-369) K/mm3 MPV 11.2 (9.4-12.3) fl Neutrophils % (Manual) 75 H (40-60) % Band Neutrophils % 7 (0-10) % Lymphocytes % (Manual) 10 L (20-40) % Atypical Lymphs % 0 % Monocytes % (Manual) 7 (2-10) % Eosinophils % (Manual) 1 (0.7-5.8) % Basophils % (Manual) 0 L (0.1-1.2) Platelet Estimate Decreased Plt Morphology Comment Normal Hypochromasia 2+ moderate Anisocytosis 3+ marked Macrocytosis 2+ moderate RBC Morph Comment Not Reportable Puncture Site ABG pH (7.35-7.45) ABG pCO2 (35.0-45.0) mmHg ABG pO2 (80.0-100.0) mmHg ABG HCO3 (22.0-26.0) meq/L ABG O2 Saturation (96.0-97.0) % ABG Base Excess (-2-2.0) Obie Test A-a Gradient mmHg O2 Delivery Device Oxygen Flow Rate FiO2 (21.00-100.00) % Sodium 141 (136-145) mEq/L Potassium 4.9 (3.5-5.1) mEq/L Chloride 105 (98-107) mEq/L Carbon Dioxide 38 H (21-32) mEq/L Anion Gap 2.9 L (5-15) BUN 18 (7-18) mg/dL Creatinine 1.0 (0.55-1.02) mg/dL Est Cr Clr Drug Dosing 54.24 mL/min Estimated GFR (MDRD) 57 (>60) mL/min BUN/Creatinine Ratio 18.0 (14-18) Glucose 103 (74-106) mg/dL Lactic Acid (0.4-2.0) mmol/L Calcium 8.8 (8.5-10.1) mg/dL Magnesium 2.2 (1.8-2.4) mg/dl Total Bilirubin 0.7 (0.2-1.0) mg/dL AST 13 L (15-37) U/L ALT 18 (14-59) U/L Alkaline Phosphatase 83 (46-116) U/L Troponin I < 0.017 (0.00-0.056) ng/mL NT-Pro-B Natriuret Pep (0-125) pg/mL Total Protein 8.3 H (6.4-8.2) g/dl Albumin 3.1 L (3.4-5.0) g/dl Globulin 5.2 gm/dL Albumin/Globulin Ratio 0.6 L (1-2) TSH 3rd Generation 3.671 (0.358-3.74) uIU/mL Influenza Type A RNA Negative (NEGATIVE) Influenza Type B RNA Negative (NEGATIVE) SARS-CoV-2 RNA (LEONIDES) Negative (NEGATIVE) 09/10/20 09/10/20 09/10/20 Range/Units 22:30 23:12 23:20 WBC (3.98-10.04) K/mm3 RBC (3.98-5.22) M/mm3 Hgb (11.2-15.7) gm/dl Hct (34.1-44.9) % MCV (79.4-94.8) fl MCH (25.6-32.2) pg MCHC (32.2-35.5) g/dl RDW Std Deviation (36.4-46.3) fL Plt Count (182-369) K/mm3 MPV (9.4-12.3) fl Neutrophils % (Manual) (40-60) % Band Neutrophils % (0-10) % Lymphocytes % (Manual) (20-40) % Atypical Lymphs % % Monocytes % (Manual) (2-10) % Eosinophils % (Manual) (0.7-5.8) % Basophils % (Manual) (0.1-1.2) Platelet Estimate Plt Morphology Comment Hypochromasia Anisocytosis Macrocytosis RBC Morph Comment Puncture Site Rt radial ABG pH 7.26 L (7.35-7.45) ABG pCO2 86.4 H* (35.0-45.0) mmHg ABG pO2 65.0 L (80.0-100.0) mmHg ABG HCO3 37.6 H (22.0-26.0) meq/L ABG O2 Saturation 92.9 L (96.0-97.0) % ABG Base Excess 8.0 H (-2-2.0) Obie Test Positive A-a Gradient 83 mmHg O2 Delivery Device Nasal cannula Oxygen Flow Rate 4.0 FiO2 36.00 (21.00-100.00) % Sodium (136-145) mEq/L Potassium (3.5-5.1) mEq/L Chloride (98-107) mEq/L Carbon Dioxide (21-32) mEq/L Anion Gap (5-15) BUN (7-18) mg/dL Creatinine (0.55-1.02) mg/dL Est Cr Clr Drug Dosing mL/min Estimated GFR (MDRD) (>60) mL/min BUN/Creatinine Ratio (14-18) Glucose (74-106) mg/dL Lactic Acid 0.8 (0.4-2.0) mmol/L Calcium (8.5-10.1) mg/dL Magnesium (1.8-2.4) mg/dl Total Bilirubin (0.2-1.0) mg/dL AST (15-37) U/L ALT (14-59) U/L Alkaline Phosphatase (46-116) U/L Troponin I (0.00-0.056) ng/mL NT-Pro-B Natriuret Pep 2012 H (0-125) pg/mL Total Protein (6.4-8.2) g/dl Albumin (3.4-5.0) g/dl Globulin gm/dL Albumin/Globulin Ratio (1-2) TSH 3rd Generation (0.358-3.74) uIU/mL Influenza Type A RNA (NEGATIVE) Influenza Type B RNA (NEGATIVE) SARS-CoV-2 RNA (LEONIDES) (NEGATIVE) Result Diagrams: 09/11/20 11:49 09/11/20 11:49 #1 Interpretation EKG Date: 09/11/20 Rhythm: A-Fib Rate (Beats/Min): 131 P-Wave: Absent QRS: Normal ST-T: Normal QT: Normal Sepsis Event Note - Evaluation Sepsis Screening Result: Possible Sepsis Risk - Focused Exam Vital Signs: Vital Signs Temp Pulse Pulse Resp BP Pulse Ox Pulse Ox 09/11/20 02:42 97 09/11/20 01:21 78 20 129/95 H 94 L 09/11/20 00:01 92 L 09/10/20 22:44 09/10/20 22:19 97.8 F 103 H 23 H 133/101 H 94 L Pulse Ox 09/11/20 02:42 09/11/20 01:21 09/11/20 00:01 09/10/20 22:44 89 L 09/10/20 22:19 - Problem List (1) A-fib SNOMED Code(s): 33086652 ICD Code: I48.91 - UNSPECIFIED ATRIAL FIBRILLATION Status: Acute Priority: High Current Visit: No Qualifiers: Atrial fibrillation type: paroxysmal Qualified Code(s): I48.0 - Paroxysmal atrial fibrillation (2) Acute exacerbation of CHF (congestive heart failure) SNOMED Code(s): 198893528, 87760401456057 Status: Acute Priority: High Current Visit: No Qualifiers: Heart failure type: combined systolic and diastolic Qualified Code(s): I50.43 - Acute on chronic combined systolic (congestive) and diastolic (congestive) heart failure (3) Acute on chronic respiratory failure with hypoxia SNOMED Code(s): 80262614, 298591813 Status: Acute Priority: High Current Visit: No (4) Asthma exacerbation with COPD (chronic obstructive pulmonary disease) SNOMED Code(s): 8489483800094 ICD Code: J44.1 - CHRONIC OBSTRUCTIVE PULMONARY DISEASE W (ACUTE) EXACERBATION; J45.901 - UNSPECIFIED ASTHMA WITH (ACUTE) EXACERBATION Status: Acute Current Visit: No (5) Hypercapnic respiratory failure SNOMED Code(s): 315724785 ICD Code: J96.92 - RESPIRATORY FAILURE, UNSPECIFIED WITH HYPERCAPNIA Status: Acute Current Visit: No Qualifiers: Chronicity: acute on chronic Qualified Code(s): J96.22 - Acute and chronic respiratory failure with hypercapnia (6) Cellulitis of abdominal wall SNOMED Code(s): 55668194 ICD Code: L03.311 - CELLULITIS OF ABDOMINAL WALL Status: Acute Current Visit: Yes Problem List Initiated/Reviewed/Updated: Yes Orders Last 24hrs: Active Orders 24 hr Category Date Time Status Admission Status [Patient Status] [ADT] Routine ADT 09/11/20 00:47 Active BIPAP Adult [RT BiPAP/CPAP] [RC] ASDIRECTED Care 09/10/20 23:41 Active EKG Documentation Completion [RC] ASDIRECTED Care 09/10/20 22:25 Active Influenza Vaccine Charge [RC] .DISCHARGE Care 09/11/20 00:29 Active Insert Doshi Catheter [Insert Urinary Catheter] [OM.PC] Care 09/11/20 02:45 Ordered Q24H Orthostatic Vital Signs [RC] STAT Care 09/10/20 22:42 Active Oxygen Therapy [RC] PRN Care 09/11/20 02:57 Ordered RT Aerosol Therapy [RC] ASDIRECTED Care 09/10/20 22:44 Active RT Aerosol Therapy [RC] ASDIRECTED Care 09/11/20 03:01 Ordered Up With Assistance [RC] ASDIRECTED Care 09/11/20 02:56 Ordered Urinary Catheter Assessment [RC] ASDIRECTED Care 09/11/20 02:39 Active VTE/DVT Education [RC] PER UNIT ROUTINE Care 09/11/20 02:57 Ordered Vital Signs [RC] Q4H Care 09/11/20 02:57 Ordered 2 Gram Sodium Diet [DIET] Diet 09/11/20 Breakfast Ordered Chest 1V Frontal [CR] Stat Exams 09/10/20 22:40 Taken CULTURE BLOOD [BC] Stat Lab 09/10/20 23:20 Received CULTURE BLOOD [BC] Stat Lab 09/10/20 23:30 Received Acetaminophen [TylenoL] Med 09/11/20 02:56 Ordered 650 mg PO Q4H PRN Albuterol/Ipratropium Med 09/11/20 02:59 Ordered 4 gm IH Q4H PRN Albuterol/Ipratropium [DuoNeb 3.0-0.5 MG/3 ML] Med 09/11/20 03:00 Ordered 3 ml NEB Q6H Apixaban [Eliquis] Med 09/11/20 09:00 Ordered 5 mg PO BID Aspirin Med 09/11/20 09:00 Ordered 81 mg PO DAILY Diltiazem [Cardizem] 100 mg Med 09/10/20 22:45 Active Sodium Chloride 0.9% [Normal Saline] 100 ml IV TITRATE Furosemide [Lasix] Med 09/11/20 06:00 Ordered 40 mg IVPUSH BIDDIURETIC Metoprolol Tartrate [Lopressor] Med 09/11/20 06:00 Ordered 25 mg PO Q12H Nystatin [Nystop] Med 09/11/20 09:00 Ordered 2 gm TOP TID Ondansetron [Zofran] Med 09/11/20 02:56 Ordered 4 mg IV Q4H PRN Spironolactone [Aldactone] Med 09/11/20 09:00 Ordered 25 mg PO DAILY atorvaSTATin Calcium Med 09/11/20 21:00 Ordered 40 mg PO BEDTIME cefTRIAXone [Rocephin] 2 gm Med 09/11/20 03:15 Ordered Sodium Chloride 0.9% [Normal Saline] 100 ml IV Q24H Blood Culture x2 Reflex Set [OM.PC] Stat Oth 09/10/20 22:43 Ordered Isolation [COMM] Routine Oth 09/11/20 02:26 Ordered Resuscitation Status Routine Resus Stat 09/11/20 02:56 Ordered EKG 12 Lead [EK] Stat Ther 09/10/20 22:24 Ordered Medication Orders Acetaminophen (Tylenol) 650 mg PO Q4H PRN PRN Reason: Pain (Mild 1-3)/fever Albuterol/Ipratropium (Duoneb 3.0-0.5 Mg/3 Ml) 3 ml NEB Q6H JOHNATHAN Apixaban (Eliquis) 5 mg PO BID JOHNATHAN Aspirin (Aspirin) 81 mg PO DAILY JOHNATHAN Furosemide (Lasix) 40 mg IVPUSH BIDDIURETIC JOHNATHAN Diltiazem HCl 100 mg/ Sodium (Chloride) 100 mls @ 10 mls/hr IV TITRATE JOHNATHAN; Protocol Last Titration: 09/11/20 02:26 Dose: 0 mg/hr, 0 mls/hr Documented by: Admin: 09/10/20 22:55 Dose: 10 mg/hr, 10 mls/hr Documented by: KARTHIKEYAN Ceftriaxone Sodium 2 gm/ (Sodium Chloride) 100 mls @ 200 mls/hr IV Q24H JOHNATHAN Metoprolol Tartrate (Lopressor) 25 mg PO Q12H JOHNATHAN Non-Formulary Medication (Atorvastatin Calcium) 40 mg PO BEDTIME JOHNATHAN Non-Formulary Medication (Albuterol/Ipratropium) 4 gm IH Q4H PRN PRN Reason: COPD/Asthma Nystatin (Nystop) 2 gm TOP TID JOHNATHAN Ondansetron HCl (Zofran) 4 mg IV Q4H PRN PRN Reason: Nausea/Vomiting Spironolactone (Aldactone) 25 mg PO DAILY [facility] Assessment/Plan Comment:: Assessment 55-year-old female with oxygen dependent COPD, atrial fibrillation, and CHF the ICU with severe hypercapnia and respiratory failure. Exacerbation of COPD Atrial fibrillation with RVR Exacerbation of CHF * On 2 L/min of home O2 which she increased to 4 L/min without improvement in symptoms of shortness of breath, lightheadedness, and productive cough. * EMS brought patient from [place] on a nonrebreather which likely worsened her hypercapnia. * Initially placed on BiPAP 06/08 in the emergency department. Recheck blood gas showed worsening of hypercapnia With a PCO2 of 88 with pH of 7.27 * Troponin less than 0.017 * proBNP 2011 * TSH normal at 3.67 * Unknown smoking history at this time * Appears patient is on Eliquis 5 mg twice daily, losartan, and Lasix at home * Received budesonide 1 mg in the emergency department Lower abdominal wall cellulitis versus abdominal wall edema * White count is normal at 7.32 * Mild bandemia with bands at 7% * Lactic acid normal 0.8 * Abdominal exam shows tenderness, erythema, and induration was consistent with cellulitis but could also be caused by subcutaneous edema. Plan * Admit to ICU * BiPAP titrate as needed. Currently on 24/06 at 40% FiO2 * Lasix 40 mg twice daily IV * Rocephin 2 g IV daily * Blood cultures * Follow CBC, CMP, mag, C-reactive protein * Get procalcitonin * Repeat ABG as needed * urine toxicology screen * Eliquis 5 mg twice daily, continue losartan. * VTE prophylaxis with Lovenox * CODE STATUS: Full code - Mortality Measure Prognosis:: Poor
[2020-09-11] MEDS: cefTRIAXone 2 GM in Sodium Chloride 0.9% 100 ML IV SCH (03:25)
[2020-09-11] MEDS ORDERED: Albuterol/Ipratropium 3.0-0.5 MG/3 ML Neb Soln NEB SCH (05:00)
[2020-09-11] MEDS: Furosemide 40 MG/4 ML VIAL IVPUSH SCH ×2 (05:48→13:38)
[2020-09-11] MEDS: Albuterol/Ipratropium 3.0-0.5 MG/3 ML Neb Soln NEB SCH ×3 (08:07→21:21)
[2020-09-11] MEDS: Metoprolol Tartrate 25 MG Tab PO SCH ×2 (08:52→20:11)
[2020-09-11] MEDS: Nystatin Topical Powder 15 GM Bottle TOP SCH ×3 (08:56→20:12)
[2020-09-11] MEDS: Rosuvastatin 10 MG Tab PO SCH (12:02)
[2020-09-11] MEDS: Aspirin 81 MG Tab.Chew PO SCH (12:02)
[2020-09-11] MEDS: Apixaban 5 MG Tab PO SCH ×2 (12:03→20:11)
[2020-09-11] MEDS: Spironolactone 25 MG Tab PO SCH (12:03)
[2020-09-11] MEDS: methylPREDNISolone Sodium Succinate 40 MG/1 ML SDV IVPUSH SCH ×2 (15:03→20:11)
[2020-09-11] MEDS: Losartan 25 MG Tab PO SCH (20:12)
[2020-09-12] MEDS: cefTRIAXone 2 GM in Sodium Chloride 0.9% 100 ML IV SCH (03:31)
[2020-09-12] MEDS: methylPREDNISolone Sodium Succinate 40 MG/1 ML SDV IVPUSH SCH ×4 (03:31→21:08)
[2020-09-12] MEDS: Albuterol/Ipratropium 3.0-0.5 MG/3 ML Neb Soln NEB SCH ×3 (03:51→20:52)
[2020-09-12] MEDS: Furosemide 40 MG/4 ML VIAL IVPUSH SCH ×2 (06:13→14:30)
[2020-09-12] MEDS: Aspirin 81 MG Tab.Chew PO SCH (08:15)
[2020-09-12] MEDS: Metoprolol Tartrate 25 MG Tab PO SCH ×2 (08:15→21:08)
[2020-09-12] MEDS: Rosuvastatin 10 MG Tab PO SCH (08:15)
[2020-09-12] MEDS: Spironolactone 25 MG Tab PO SCH (08:15)
[2020-09-12] MEDS: Isosorbide Mononitrate 60 MG Tab.ER PO SCH (08:16)
[2020-09-12] MEDS: Nystatin Topical Powder 15 GM Bottle TOP SCH ×3 (08:16→21:09)
[2020-09-12] MEDS: Apixaban 5 MG Tab PO SCH ×2 (08:16→21:09)
[2020-09-12] MEDS: Nicotine 14 MG/24 Hr Patch TRDERM SCH (09:43)
[2020-09-12] MEDS: Losartan 25 MG Tab PO SCH (21:08)
--- NOTE | 2020-09-12 22:47 | PCM.PN ---
- General Info Date of Service: 09/12/20 Admission Dx/Problem (Free Text): Admission Diagnosis/Problem Admission Diagnosis/Problem Congestive heart failure Subjective Update: Patient continues to improve. Functional Status: Reports: Pain Controlled - Review of Systems General: Reports: Fatigue HEENT: Reports: No Symptoms Pulmonary: Reports: Shortness of Breath Cardiovascular: Reports: No Symptoms Gastrointestinal: Reports: No Symptoms Musculoskeletal: Reports: No Symptoms Neurological: Reports: No Symptoms Psychiatric: Reports: No Symptoms - Patient Data Vitals - Most Recent: Last Vital Signs Temp 99.0 F 09/12/20 19:10 Pulse 112 H 09/12/20 21:08 Resp 18 09/12/20 19:10 BP 132/73 09/12/20 21:08 Pulse Ox 93 L 09/12/20 20:52 Orthostatic Blood Pressure [ 116/85 Sitting] Orthostatic Blood Pressure [ 105/75 Supine] Weight - Most Recent: 362 lb 3.2 oz I&O - Last 24 Hours: Intake & Output 09/12/20 09/12/20 09/12/20 06:59 14:59 22:59 Intake Total 337 1060 Output Total 500 1850 1500 Balance -163 -1850 -440 Lab Results Last 24 Hours: Laboratory Results - last 24 hr 09/12/20 09/12/20 09/12/20 Range/Units 04:48 04:48 04:48 WBC 7.06 (3.98-10.04) K/mm3 RBC 4.62 (3.98-5.22) M/mm3 Hgb 12.5 (11.2-15.7) gm/dl Hct 42.5 (34.1-44.9) % MCV 92.0 D (79.4-94.8) fl MCH 27.1 (25.6-32.2) pg MCHC 29.4 L (32.2-35.5) g/dl RDW Std Deviation 54.5 H (36.4-46.3) fL Plt Count 119 L (182-369) K/mm3 MPV 11.9 (9.4-12.3) fl Neut % (Auto) 91.5 H (34.0-71.1) % Lymph % (Auto) 7.4 L (19.3-51.7) % Harrison % (Auto) 0.7 L (4.7-12.5) % Eos % (Auto) 0 L (0.7-5.8) Baso % (Auto) 0.1 (0.1-1.2) % Neut # (Auto) 6.46 H (1.56-6.13) K/mm3 Lymph # (Auto) 0.52 L (1.18-3.74) K/mm3 Harrison # (Auto) 0.05 L (0.24-0.36) K/mm3 Eos # (Auto) 0.00 L (0.04-0.36) K/mm3 Baso # (Auto) 0.01 (0.01-0.08) K/mm3 Manual Slide Review Abnormal smear Puncture Site ABG pH (7.35-7.45) ABG pCO2 (35.0-45.0) mmHg ABG pO2 (80.0-100.0) mmHg ABG HCO3 (22.0-26.0) meq/L ABG O2 Saturation (96.0-97.0) % ABG Base Excess (-2-2.0) Obie Test A-a Gradient mmHg O2 Delivery Device FiO2 (21.00-100.00) % PEEP cmH20 Sodium 141 (136-145) mEq/L Potassium 4.0 (3.5-5.1) mEq/L Chloride 101 (98-107) mEq/L Carbon Dioxide 38 H (21-32) mEq/L Anion Gap 6.0 (5-15) BUN 23 H (7-18) mg/dL Creatinine 1.0 (0.55-1.02) mg/dL Est Cr Clr Drug Dosing 54.24 mL/min Estimated GFR (MDRD) 57 (>60) mL/min BUN/Creatinine Ratio 23.0 H (14-18) Glucose 220 H (74-106) mg/dL Calcium 8.9 (8.5-10.1) mg/dL Magnesium 2.0 (1.8-2.4) mg/dl C-Reactive Protein 2.9 H* (<1.0) mg/dL NT-Pro-B Natriuret Pep 1153 H (0-125) pg/mL 09/12/20 Range/Units 06:00 WBC (3.98-10.04) K/mm3 RBC (3.98-5.22) M/mm3 Hgb (11.2-15.7) gm/dl Hct (34.1-44.9) % MCV (79.4-94.8) fl MCH (25.6-32.2) pg MCHC (32.2-35.5) g/dl RDW Std Deviation (36.4-46.3) fL Plt Count (182-369) K/mm3 MPV (9.4-12.3) fl Neut % (Auto) (34.0-71.1) % Lymph % (Auto) (19.3-51.7) % Harrison % (Auto) (4.7-12.5) % Eos % (Auto) (0.7-5.8) Baso % (Auto) (0.1-1.2) % Neut # (Auto) (1.56-6.13) K/mm3 Lymph # (Auto) (1.18-3.74) K/mm3 Harrison # (Auto) (0.24-0.36) K/mm3 Eos # (Auto) (0.04-0.36) K/mm3 Baso # (Auto) (0.01-0.08) K/mm3 Manual Slide Review Puncture Site Rt radial ABG pH 7.43 (7.35-7.45) ABG pCO2 59.4 H (35.0-45.0) mmHg ABG pO2 131.0 H (80.0-100.0) mmHg ABG HCO3 38.3 H (22.0-26.0) meq/L ABG O2 Saturation 83.0 L (96.0-97.0) % ABG Base Excess 11.6 H (-2-2.0) Obie Test Positive A-a Gradient 9 mmHg O2 Delivery Device Bipap FiO2 0.00 L (21.00-100.00) % PEEP 10.0 cmH20 Sodium (136-145) mEq/L Potassium (3.5-5.1) mEq/L Chloride (98-107) mEq/L Carbon Dioxide (21-32) mEq/L Anion Gap (5-15) BUN (7-18) mg/dL Creatinine (0.55-1.02) mg/dL Est Cr Clr Drug Dosing mL/min Estimated GFR (MDRD) (>60) mL/min BUN/Creatinine Ratio (14-18) Glucose (74-106) mg/dL Calcium (8.5-10.1) mg/dL Magnesium (1.8-2.4) mg/dl C-Reactive Protein (<1.0) mg/dL NT-Pro-B Natriuret Pep (0-125) pg/mL Aditya Results Last 24 Hours: Microbiology 09/10/20 23:30 Aerobic Blood Culture - Preliminary Blood - Venous - Lab Draw NO GROWTH AFTER 1 DAY Anaerobic Blood Culture - Preliminary NO GROWTH AFTER 1 DAY 09/10/20 23:20 Aerobic Blood Culture - Preliminary Blood - Venous NO GROWTH AFTER 1 DAY Anaerobic Blood Culture - Preliminary NO GROWTH AFTER 1 DAY Med Orders - Current: Current Medications Acetaminophen (Tylenol) 650 mg PO Q4H PRN PRN Reason: Pain (Mild 1-3)/fever Albuterol/Ipratropium (Duoneb 3.0-0.5 Mg/3 Ml) 3 ml NEB BIDRT [facility] Last Admin: 09/12/20 20:52 Dose: 3 ml Documented by: Apixaban (Eliquis) 5 mg PO BID [facility] Last Admin: 09/12/20 21:09 Dose: 5 mg Documented by: Aspirin (Aspirin) 81 mg PO DAILY [facility] Last Admin: 09/12/20 08:15 Dose: 81 mg Documented by: Furosemide (Lasix) 40 mg PO BID [facility] Ceftriaxone Sodium 2 gm/ (Sodium Chloride) 100 mls @ 200 mls/hr IV Q24H [facility] Last Admin: 09/12/20 03:31 Dose: 200 mls/hr Documented by: Isosorbide Mononitrate (Imdur) 60 mg PO DAILY [facility] Last Admin: 09/12/20 08:16 Dose: 60 mg Documented by: Losartan Potassium (Cozaar) 25 mg PO BEDTIME [facility] Last Admin: 09/12/20 21:08 Dose: 25 mg Documented by: Methylprednisolone Sodium Succinate (Solu-Medrol) 40 mg IVPUSH Q8H [facility] Metoprolol Tartrate (Lopressor) 25 mg PO Q12H [facility] Last Admin: 09/12/20 21:08 Dose: 25 mg Documented by: Miscellaneous Information (Remove Patch) 1 ea TRDERM DAILY [facility] Nicotine (Habitrol) 14 mg TRDERM DAILY [facility] Last Admin: 09/12/20 09:43 Dose: 14 mg Documented by: Nystatin (Nystop) 0 gm TOP TID [facility] Last Admin: 09/12/20 21:09 Dose: 1 applic Documented by: Ondansetron HCl (Zofran) 4 mg IV Q4H PRN PRN Reason: Nausea/Vomiting Rosuvastatin Calcium (Crestor) 10 mg PO DAILY [facility] Last Admin: 09/12/20 08:15 Dose: 10 mg Documented by: Spironolactone (Aldactone) 25 mg PO DAILY [facility] Last Admin: 09/12/20 08:15 Dose: 25 mg Documented by: Discontinued Medications Albuterol/Ipratropium (Duoneb 3.0-0.5 Mg/3 Ml) 3 ml NEB ONETIME ONE Stop: 09/10/20 22:45 Last Admin: 09/10/20 22:59 Dose: 3 ml Documented by: Albuterol/Ipratropium (Duoneb 3.0-0.5 Mg/3 Ml) 3 ml NEB Q6H [facility] Last Admin: 09/11/20 05:31 Dose: 3 ml Documented by: Albuterol/Ipratropium (Duoneb 3.0-0.5 Mg/3 Ml) 3 ml NEB Q6HRRT [facility] Last Admin: 09/12/20 08:04 Dose: 3 ml Documented by: Bumetanide (Bumex) 1 mg IVPUSH ONETIME ONE Stop: 09/11/20 00:17 Last Admin: 09/11/20 00:56 Dose: 1 mg Documented by: Diltiazem HCl (Cardizem) 10 mg IVPUSH ONETIME STA Stop: 09/10/20 22:46 Last Admin: 09/10/20 22:54 Dose: 10 mg Documented by: Furosemide (Lasix) 40 mg IVPUSH BIDDIURETIC [facility] Last Admin: 09/12/20 14:30 Dose: 40 mg Documented by: Diltiazem HCl 100 mg/ Sodium (Chloride) 100 mls @ 10 mls/hr IV TITRATE [facility]; Protocol Last Titration: 09/11/20 02:26 Dose: 0 mg/hr, 0 mls/hr Documented by: Influenza Virus Vaccine (Pharmacy To Dose - Influenza Vaccine) 1 each IM ONETIME ONE Stop: 09/11/20 00:30 Influenza Virus Vaccine (Fluzone Quad [id number] Syringe) 60 mcg IM .ONCE ONE Stop: 09/11/20 00:31 Last Admin: 09/11/20 00:55 Dose: 60 mcg Documented by: Methylprednisolone Sodium Succinate (Solu-Medrol) 60 mg IVPUSH Q6H [facility] Last Admin: 09/12/20 21:08 Dose: 60 mg Documented by: Non-Formulary Medication (Albuterol/Ipratropium) 4 gm IH Q4H PRN PRN Reason: COPD/Asthma - Exam Quality Assessment: Supplemental Oxygen General: Alert, Oriented HEENT: Pupils Equal, Mucous Membr. Moist/[place] Neck: Supple Lungs: Rales, Wheezing. No: Normal Respiratory Effort (Increased respiratory rate and effort) Cardiovascular: Regular Rate, Regular Rhythm GI/Abdominal Exam: Normal Bowel Sounds, Soft, Non-Tender, No Distention Extremities: Normal Inspection, Normal Capillary Refill, Pedal Edema (2+) Skin: Warm, Dry, Intact Psy/Mental Status: Alert, Normal Affect, Normal Mood Sepsis Event Note - Evaluation Sepsis Screening Result: No Definite Risk - Focused Exam Vital Signs: Vital Signs Temp Temp Pulse Resp BP BP Pulse Ox 09/12/20 21:08 112 H 132/73 09/12/20 20:52 09/12/20 19:10 99.0 F 112 H 18 132/73 94 L 09/12/20 16:07 98.8 F 62 19 133/71 92 L 09/12/20 15:07 94 L 09/12/20 15:00 95 09/12/20 14:00 93 L 09/12/20 13:00 97 09/12/20 12:25 96.9 F 22 H 123/76 95 09/12/20 12:22 123/76 96 09/12/20 12:21 93 L 09/12/20 12:00 94 L 09/12/20 11:00 92 L Pulse Ox 09/12/20 21:08 09/12/20 20:52 93 L 09/12/20 19:10 09/12/20 16:07 09/12/20 15:07 09/12/20 15:00 09/12/20 14:00 09/12/20 13:00 09/12/20 12:25 09/12/20 12:22 09/12/20 12:21 09/12/20 12:00 09/12/20 11:00 - Problem List & Annotations (1) A-fib SNOMED Code(s): 41094533 Code(s): I48.91 - UNSPECIFIED ATRIAL FIBRILLATION Status: Acute Priority: High Current Visit: No Qualifiers: Atrial fibrillation type: paroxysmal Qualified Code(s): I48.0 - Paroxysmal atrial fibrillation (2) Acute exacerbation of CHF (congestive heart failure) SNOMED Code(s): 446815318, 51162233856774 Status: Acute Priority: High Current Visit: No Qualifiers: Heart failure type: combined systolic and diastolic Qualified Code(s): I50.43 - Acute on chronic combined systolic (congestive) and diastolic (congestive) heart failure (3) Acute on chronic respiratory failure with hypoxia SNOMED Code(s): 87943574, 154211768 Status: Acute Priority: High Current Visit: No (4) Asthma exacerbation with COPD (chronic obstructive pulmonary disease) SNOMED Code(s): 9373298068037 Code(s): J44.1 - CHRONIC OBSTRUCTIVE PULMONARY DISEASE W (ACUTE) EXACERBATION; J45.901 - UNSPECIFIED ASTHMA WITH (ACUTE) EXACERBATION Status: Acute Current Visit: No (5) Hypercapnic respiratory failure SNOMED Code(s): 009511277 Code(s): J96.92 - RESPIRATORY FAILURE, UNSPECIFIED WITH HYPERCAPNIA Status: Acute Current Visit: No Qualifiers: Chronicity: acute on chronic Qualified Code(s): J96.22 - Acute and chronic respiratory failure with hypercapnia (6) Cellulitis of abdominal wall SNOMED Code(s): 77083152 Code(s): L03.311 - CELLULITIS OF ABDOMINAL WALL Status: Acute Current Visit: Yes - Problem List Review Problem List Initiated/Reviewed/Updated: Yes - My Orders Last 24 Hours: My Active Orders 09/12/20 09:00 Isosorbide Mononitrate [Imdur] 60 mg PO DAILY Nicotine [Habitrol] 14 mg TRDERM DAILY 09/12/20 12:34 PT Evaluation and Treatment [CONS] Routine 09/12/20 12:46 Patient Status [ADT] Routine 09/12/20 21:00 Albuterol/Ipratropium [DuoNeb 3.0-0.5 MG/3 ML] 3 ml NEB BIDRT 09/13/20 05:11 CBC WITH AUTO DIFF [HEME] AM CMP [COMPREHENSIVE METABOLIC PN,CMP] [CHEM] AM MAGNESIUM [CHEM] AM PHOSPHORUS [CHEM] AM PRO B-TYPE NATRIUR PEPT,BNPPRO [CHEM] Routine 09/13/20 06:00 methylPREDNISolone Sod Succ [Solu-MEDROL] 40 mg IVPUSH Q8H 09/13/20 09:00 Furosemide [Lasix] 40 mg PO BID Remove Patch 1 ea TRDERM DAILY - Plan Plan:: Assessment 09/11/2020 55-year-old female with oxygen dependent COPD, atrial fibrillation, and CHF the ICU with severe hypercapnia and respiratory failure. Exacerbation of COPD Atrial fibrillation with RVR Exacerbation of CHF * On 2 L/min of home O2 which she increased to 4 L/min without improvement in symptoms of shortness of breath, lightheadedness, and productive cough. * EMS brought patient from [place] on a nonrebreather which likely worsened her hypercapnia. * Initially placed on BiPAP 06/08 in the emergency department. Recheck blood gas showed worsening of hypercapnia With a PCO2 of 88 with pH of 7.27 * Troponin less than 0.017 * proBNP 2011 * TSH normal at 3.67 * Unknown smoking history at this time * Appears patient is on Eliquis 5 mg twice daily, losartan, and Lasix at home * Received budesonide 1 mg in the emergency department Lower abdominal wall cellulitis versus abdominal wall edema * White count is normal at 7.32 * Mild bandemia with bands at 7% * Lactic acid normal 0.8 * Abdominal exam shows tenderness, erythema, and induration was consistent with cellulitis but could also be caused by subcutaneous edema. Plan * Admit to ICU * BiPAP titrate as needed. Currently on 24/06 at 40% FiO2 * Lasix 40 mg twice daily IV * Rocephin 2 g IV daily * Blood cultures * Follow CBC, CMP, mag, C-reactive protein * Get procalcitonin * Repeat ABG as needed * urine toxicology screen * Eliquis 5 mg twice daily, continue losartan. * VTE prophylaxis with Lovenox * CODE STATUS: Full code 09/12/2020 Assessment * Patient had significant improvement overnight. She was able to wean off of her BiPAP after her PCO2 came down. Patient was able to stay on nasal cannula O2 the rest of the day. * Significant weight loss overnight and abdominal wall erythema and induration are greatly improved. * [place] procalcitonin Patient continued on Rocephin 2 g for the abdominal wall infection. Continue Lasix 40 mg twice daily and decrease tomorrow from IV to p.o. If patient continues to do well plan discharge tomorrow.
[2020-09-13] MEDS: cefTRIAXone 2 GM in Sodium Chloride 0.9% 100 ML IV SCH (02:57)
[2020-09-13] MEDS ORDERED: methylPREDNISolone Sodium Succinate 40 MG/1 ML SDV IVPUSH SCH (06:00)
[2020-09-13] MEDS ORDERED: Furosemide 40 MG Tab PO SCH (06:00)
[2020-09-13] MEDS: Albuterol/Ipratropium 3.0-0.5 MG/3 ML Neb Soln NEB SCH (06:44)
[2020-09-13] MEDS ORDERED: Remove AND REPLACE NICOTINE Patch TRDERM SCH (09:00)
[2020-09-13] MEDS: Isosorbide Mononitrate 60 MG Tab.ER PO SCH (09:26)
[2020-09-13] MEDS: Rosuvastatin 10 MG Tab PO SCH (09:26)
[2020-09-13] MEDS: Metoprolol Tartrate 25 MG Tab PO SCH (09:26)
[2020-09-13] MEDS: Apixaban 5 MG Tab PO SCH (09:27)
[2020-09-13] MEDS: Spironolactone 25 MG Tab PO SCH (09:27)
[2020-09-13] MEDS: Aspirin 81 MG Tab.Chew PO SCH (09:27)
[2020-09-13] MEDS: Nicotine 14 MG/24 Hr Patch TRDERM SCH (09:28)
[2020-09-13] MEDS: Nystatin Topical Powder 15 GM Bottle TOP SCH (09:29)
[2020-09-13 11:31] VITALS: BP 130/69; PULSE 78
--- NOTE | 2020-09-13 13:31 | PCM.DCSUM1 ---
Discharge Summary - Hospital Course HPI Initial Comments: 55-year-old female who was brought in to the emergency department via [facility] with complaints of dyspnea and lightheadedness since last night. Unfortunately when I saw her in the ICU early this morning patient was unable to give me a history and we were unable to get a hold of her family, therefore the history was obtained through emergency department notes and nursing report. She apparently had an occasional cough over the past 2 days that was tinged with colored sputum but no reports of blood. She denied any fever, nausea, vomiting, constipation, diarrhea, or urinary symptoms. She is on 2 L via nasal cannula chronically to treat what is assumed to be COPD. Recently she increased it to 4 without improvement in her symptoms. In route to the ER place was placed on nonrebreather by EMS. Patient was placed on 2 L when she arrived at the emergency department. In the emergency department had to increase her O2 to 4 L/min and ABG showed a pH 7.26, PCO2 86.4, bicarb 37.6, PO2 65. Patient was placed on BiPAP at pressures of 10/4. ECG obtained by EMS and then a repeat done by the ED staff found her to be in atrial fibrillation. She had an elevated pro BNP of 2011. Diltiazem 10 mg IV push was given and patient was started on a diltiazem drip. Patient was given 1 mg of Bumex and then transferred to the ICU. Assessment 55-year-old female with oxygen dependent COPD, atrial fibrillation, and CHF the ICU with severe hypercapnia and respiratory failure. Exacerbation of COPD Atrial fibrillation with RVR Exacerbation of CHF * On 2 L/min of home O2 which she increased to 4 L/min without improvement in symptoms of shortness of breath, lightheadedness, and productive cough. * EMS brought patient from [facility] on a nonrebreather which likely worsened her hypercapnia. * Initially placed on BiPAP 10/4 in the emergency department. Recheck blood gas showed worsening of hypercapnia With a PCO2 of 88 with pH of 7.27 * Troponin less than 0.017 * proBNP 2011 * TSH normal at 3.67 * Unknown smoking history at this time * Appears patient is on Eliquis 5 mg twice daily, losartan, and Lasix at home * Received budesonide 1 mg in the emergency department Lower abdominal wall cellulitis versus abdominal wall edema * White count is normal at 7.32 * Mild bandemia with bands at 7% * Lactic acid normal 0.8 * Abdominal exam shows tenderness, erythema, and induration was consistent with cellulitis but could also be caused by subcutaneous edema. Plan * Admit to ICU * BiPAP titrate as needed. Currently on 24/06 at 40% FiO2 * Lasix 40 mg twice daily IV * Rocephin 2 g IV daily * Blood cultures * Follow CBC, CMP, mag, C-reactive protein * Get procalcitonin * Repeat ABG as needed * urine toxicology screen * Eliquis 5 mg twice daily, continue losartan. * VTE prophylaxis with Lovenox * CODE STATUS: Full code - Mortality Measure Prognosis:: Poor Diagnosis: Stroke: No - Discharge Data Discharge Date: 09/13/20 Discharge Disposition: Home, Self-Care 01 Condition: Good - Referral to Home Health Primary Care Physician: PCP None - Discharge Diagnosis/Problem(s) (1) A-fib SNOMED Code(s): 03064104 ICD Code: I48.91 - UNSPECIFIED ATRIAL FIBRILLATION Status: Acute Priority: High Current Visit: No Qualifiers: Atrial fibrillation type: paroxysmal Qualified Code(s): I48.0 - Paroxysmal atrial fibrillation (2) Acute exacerbation of CHF (congestive heart failure) SNOMED Code(s): 844507729, 02227713690967 Status: Acute Priority: High Current Visit: No Qualifiers: Heart failure type: combined systolic and diastolic Qualified Code(s): I50.43 - Acute on chronic combined systolic (congestive) and diastolic (congestive) heart failure (3) Acute on chronic respiratory failure with hypoxia SNOMED Code(s): 47783700, 145727834 Status: Acute Priority: High Current Visit: No (4) Asthma exacerbation with COPD (chronic obstructive pulmonary disease) SNOMED Code(s): 7427794030874 ICD Code: J44.1 - CHRONIC OBSTRUCTIVE PULMONARY DISEASE W (ACUTE) EXACERBATION; J45.901 - UNSPECIFIED ASTHMA WITH (ACUTE) EXACERBATION Status: Acute Current Visit: No (5) Hypercapnic respiratory failure SNOMED Code(s): 980282294 ICD Code: J96.92 - RESPIRATORY FAILURE, UNSPECIFIED WITH HYPERCAPNIA Status: Acute Current Visit: No Qualifiers: Chronicity: acute on chronic Qualified Code(s): J96.22 - Acute and chronic respiratory failure with hypercapnia (6) Cellulitis of abdominal wall SNOMED Code(s): 84608376 ICD Code: L03.311 - CELLULITIS OF ABDOMINAL WALL Status: Acute Current Visit: Yes - Patient Summary/Data Consults: Consultations 09/12/20 12:34 PT Evaluation and Treatment [CONS] Routine Hospital Course: Patient was admitted on BiPAP and started on IV Solu-Medrol. Diuresis with Lasix 40 mg IV twice daily was initiated and she had a significant weight loss of 23 pounds. Abdominal wall cellulitis and edema significantly improved and pain resolved. Induration was still present at discharge but much better. She was treated for total of 2 days with Rocephin and will be sent home on Keflex. She will continue on steroids, prednisone 50 mg, for 4 more days. She will receive a nicotine patch. Follow-up with her primary care physician next week. Continue 2 L O2 via nasal cannula. - Patient Instructions Diet: Heart Healthy Diet Activity: As Tolerated Driving: Do Not Drive Notify Provider of: Fever, Nausea and/or Vomiting Other/Special Instructions: Follow-up with primary care provider. Please stop smoking. - Discharge Plan *PRESCRIPTION DRUG MONITORING PROGRAM REVIEWED*: Not Applicable *COPY OF PRESCRIPTION DRUG MONITORING REPORT IN PATIENT IVETTE: Not Applicable Prescriptions/Med Rec: Nicotine [Habitrol] 14 mg TRDERM DAILY #60 patch cephALEXin [Keflex] 500 mg PO QID #28 cap predniSONE [Prednisone] 50 mg PO DAILY #4 tablet Home Medications: Home Meds Fluticasone/Salmeterol [Advair Diskus 250-50] 1 puff INH BID #1 inhaler 09/07/16 [Rx] Furosemide [Lasix] 40 mg PO BID 11/21/16 [History] Omeprazole 1 tab PO DAILY 11/21/16 [History] Albuterol/Ipratropium [DuoNeb 3.0-0.5 MG/3 ML] 3 ml NEB Q6H #30 neb 08/15/17 [Rx] Aspirin 81 mg PO DAILY 11/09/17 [History] Losartan [Cozaar] 25 mg PO BEDTIME #30 tablet 11/13/17 [Rx] Nystatin [Nystop] 2 gm TOP TID #60 bottle 11/13/17 [Rx] Albuterol/Ipratropium [Combivent Respimat] 4 gm IH Q4H PRN #1 aer.w.adap 04/05/18 [Rx] Apixaban [Eliquis] 5 mg PO BID #60 tablet 04/05/18 [Rx] Metoprolol Tartrate [Lopressor] 25 mg PO Q12H #60 tablet 04/05/18 [Rx] Spironolactone [Aldactone] 25 mg PO DAILY #30 tab 04/05/18 [Rx] atorvaSTATin Calcium [Atorvastatin Calcium] 40 mg PO BEDTIME #30 tablet 04/05/18 [Rx] modafiniL [Provigil] 200 mg PO DAILY #30 tablet 04/05/18 [Rx] Isosorbide Mononitrate [Isosorbide Mononitrate ER] 60 mg PO DAILY 09/11/20 [History] Albuterol/Ipratropium [DuoNeb 3.0-0.5 MG/3 ML] 3 ml NEB BIDRT neb 09/13/20 [Rx] Nicotine [Habitrol] 14 mg TRDERM DAILY #60 patch 09/13/20 [Rx] Remove Patch 1 ea TRDERM DAILY each 09/13/20 [Rx] cephALEXin [Keflex] 500 mg PO QID #28 cap 09/13/20 [Rx] predniSONE [Prednisone] 50 mg PO DAILY #4 tablet 09/13/20 [Rx] Oxygen Therapy Mode: Nasal Cannula Oxygen Flow Rate (L/min): 2 Patient Handouts: Chronic Obstructive Pulmonary Disease, Heart Failure, Self Care, Heart-Healthy Eating Plan, [id number], Sepsis, Diagnosis, Adult, Heart Failure, Diagnosis, Living With Heart Failure, Steps to Quit Smoking Referrals: PCP,None [Primary Care Provider] - (Please schedule an appointment with your primary care provider as a hospital follow up. This appointment should be within 7-10 days. ) - Discharge Summary/Plan Comment DC Time >30 min.: Yes - General Info Date of Service: 09/13/20 Admission Dx/Problem (Free Text: Admission Diagnosis/Problem Admission Diagnosis/Problem Congestive heart failure Subjective Update: She is on baseline O2. No fever or chills. 23 pound weight loss. Functional Status: Reports: Pain Controlled - Review of Systems General: Reports: No Symptoms HEENT: Reports: No Symptoms Pulmonary: Reports: No Symptoms Cardiovascular: Reports: No Symptoms Genitourinary: Reports: No Symptoms Musculoskeletal: Reports: No Symptoms - Patient Data Vitals - Most Recent: Last Vital Signs Temp 98.6 F 09/13/20 11:08 Pulse 78 09/13/20 11:08 Resp 16 09/13/20 11:08 BP 130/69 09/13/20 11:08 Pulse Ox 94 L 09/13/20 11:08 Orthostatic Blood Pressure [ 116/85 Sitting] Orthostatic Blood Pressure [ 105/75 Supine] Weight - Most Recent: 355 lb 9.6 oz I&O - Last 24 hours: Intake & Output 09/12/20 09/13/20 09/13/20 22:59 06:59 14:59 Intake Total 1300 400 180 Output Total 8818 218 4690 Balance -200 250 -975 Lab Results - Last 24 hrs: Laboratory Results - last 24 hr 09/13/20 09/13/20 09/13/20 Range/Units 04:54 04:54 04:54 WBC 9.40 (3.98-10.04) K/mm3 RBC 4.67 (3.98-5.22) M/mm3 Hgb 12.7 (11.2-15.7) gm/dl Hct 42.2 (34.1-44.9) % MCV 90.4 (79.4-94.8) fl MCH 27.2 (25.6-32.2) pg MCHC 30.1 L (32.2-35.5) g/dl RDW Std Deviation 54.5 H (36.4-46.3) fL Plt Count 148 L (182-369) K/mm3 MPV 12.0 (9.4-12.3) fl Neut % (Auto) 89.1 H (34.0-71.1) % Lymph % (Auto) 7.1 L (19.3-51.7) % Hubbard % (Auto) 3.7 L (4.7-12.5) % Eos % (Auto) 0 L (0.7-5.8) Baso % (Auto) 0.0 L (0.1-1.2) % Neut # (Auto) 8.37 H (1.56-6.13) K/mm3 Lymph # (Auto) 0.67 L (1.18-3.74) K/mm3 Hubbard # (Auto) 0.35 (0.24-0.36) K/mm3 Eos # (Auto) 0.00 L (0.04-0.36) K/mm3 Baso # (Auto) 0.00 L (0.01-0.08) K/mm3 Manual Slide Review Abnormal smear Sodium 140 (136-145) mEq/L Potassium 3.8 (3.5-5.1) mEq/L Chloride 101 (98-107) mEq/L Carbon Dioxide 39 H (21-32) mEq/L Anion Gap 3.8 L (5-15) BUN 27 H (7-18) mg/dL Creatinine 1.1 H (0.55-1.02) mg/dL Est Cr Clr Drug Dosing 49.31 mL/min Estimated GFR (MDRD) 51 (>60) mL/min BUN/Creatinine Ratio 24.5 H (14-18) Glucose 186 H (74-106) mg/dL Calcium 8.7 (8.5-10.1) mg/dL Phosphorus 3.0 (2.6-4.7) mg/dL Magnesium 2.0 (1.8-2.4) mg/dl Total Bilirubin 0.4 (0.2-1.0) mg/dL AST 10 L (15-37) U/L ALT 14 (14-59) U/L Alkaline Phosphatase 69 (46-116) U/L NT-Pro-B Natriuret Pep 1920 H (0-125) pg/mL Total Protein 7.6 (6.4-8.2) g/dl Albumin 2.7 L (3.4-5.0) g/dl Globulin 4.9 gm/dL Albumin/Globulin Ratio 0.6 L (1-2) PUMA Results - Last 24 hrs: Microbiology 09/10/20 23:30 Aerobic Blood Culture - Preliminary Blood - Venous - Lab Draw NO GROWTH AFTER 2 DAYS Anaerobic Blood Culture - Preliminary NO GROWTH AFTER 2 DAYS 09/10/20 23:20 Aerobic Blood Culture - Preliminary Blood - Venous NO GROWTH AFTER 2 DAYS Anaerobic Blood Culture - Preliminary NO GROWTH AFTER 2 DAYS Med Orders - Current: Current Medications Acetaminophen (Tylenol) 650 mg PO Q4H PRN PRN Reason: Pain (Mild 1-3)/fever Albuterol/Ipratropium (Duoneb 3.0-0.5 Mg/3 Ml) 3 ml NEB BIDRT JOHNATHAN Last Admin: 09/13/20 06:44 Dose: 3 ml Documented by: Apixaban (Eliquis) 5 mg PO BID [facility] Last Admin: 09/13/20 09:27 Dose: 5 mg Documented by: Aspirin (Aspirin) 81 mg PO DAILY [facility] Last Admin: 09/13/20 09:27 Dose: 81 mg Documented by: Furosemide (Lasix) 40 mg PO BIDDIURETIC [facility] Last Admin: 09/13/20 05:49 Dose: 40 mg Documented by: Ceftriaxone Sodium 2 gm/ (Sodium Chloride) 100 mls @ 200 mls/hr IV Q24H [facility] Last Admin: 09/13/20 02:57 Dose: 200 mls/hr Documented by: Isosorbide Mononitrate (Imdur) 60 mg PO DAILY [facility] Last Admin: 09/13/20 09:26 Dose: 60 mg Documented by: Losartan Potassium (Cozaar) 25 mg PO BEDTIME [facility] Last Admin: 09/12/20 21:08 Dose: 25 mg Documented by: Methylprednisolone Sodium Succinate (Solu-Medrol) 40 mg IVPUSH Q8H [facility] Last Admin: 09/13/20 05:49 Dose: 40 mg Documented by: Metoprolol Tartrate (Lopressor) 25 mg PO Q12H [facility] Last Admin: 09/13/20 09:26 Dose: 25 mg Documented by: Miscellaneous Information (Remove Patch) 1 ea TRDERM DAILY [facility] Last Admin: 09/13/20 09:00 Dose: Not Given Documented by: Nicotine (Habitrol) 14 mg TRDERM DAILY [facility] Last Admin: 09/13/20 09:28 Dose: 14 mg Documented by: Nystatin (Nystop) 0 gm TOP TID [facility] Last Admin: 09/13/20 09:29 Dose: 1 applic Documented by: Ondansetron HCl (Zofran) 4 mg IV Q4H PRN PRN Reason: Nausea/Vomiting Rosuvastatin Calcium (Crestor) 10 mg PO DAILY [facility] Last Admin: 09/13/20 09:26 Dose: 10 mg Documented by: Spironolactone (Aldactone) 25 mg PO DAILY [facility] Last Admin: 09/13/20 09:27 Dose: 25 mg Documented by: Discontinued Medications Albuterol/Ipratropium (Duoneb 3.0-0.5 Mg/3 Ml) 3 ml NEB ONETIME ONE Stop: 09/10/20 22:45 Last Admin: 09/10/20 22:59 Dose: 3 ml Documented by: Albuterol/Ipratropium (Duoneb 3.0-0.5 Mg/3 Ml) 3 ml NEB Q6H JOHNATHAN Last Admin: 09/11/20 05:31 Dose: 3 ml Documented by: Albuterol/Ipratropium (Duoneb 3.0-0.5 Mg/3 Ml) 3 ml NEB Q6HRRT JOHNATHAN Last Admin: 09/12/20 08:04 Dose: 3 ml Documented by: Bumetanide (Bumex) 1 mg IVPUSH ONETIME ONE Stop: 09/11/20 00:17 Last Admin: 09/11/20 00:56 Dose: 1 mg Documented by: Diltiazem HCl (Cardizem) 10 mg IVPUSH ONETIME STA Stop: 09/10/20 22:46 Last Admin: 09/10/20 22:54 Dose: 10 mg Documented by: Furosemide (Lasix) 40 mg IVPUSH BIDDIURETIC [facility] Last Admin: 09/12/20 14:30 Dose: 40 mg Documented by: Diltiazem HCl 100 mg/ Sodium (Chloride) 100 mls @ 10 mls/hr IV TITRATE [facility]; Protocol Last Titration: 09/11/20 02:26 Dose: 0 mg/hr, 0 mls/hr Documented by: Influenza Virus Vaccine (Pharmacy To Dose - Influenza Vaccine) 1 each IM ONE TIME ONE Stop: 09/11/20 00:30 Influenza Virus Vaccine (Fluzone Quad [id number] Syringe) 60 mcg IM .ONCE ONE Stop: 09/11/20 00:31 Last Admin: 09/11/20 00:55 Dose: 60 mcg Documented by: Methylprednisolone Sodium Succinate (Solu-Medrol) 60 mg IVPUSH Q6H [facility] Last Admin: 09/12/20 21:08 Dose: 60 mg Documented by: Non-Formulary Medication (Albuterol/Ipratropium) 4 gm IH Q4H PRN PRN Reason: COPD/Asthma - Exam Quality Assessment: Reports: Supplemental Oxygen General: Reports: Alert, Oriented HEENT: Reports: Pupils Equal, Pupils Reactive, EOMI, Mucous Membr. Moist/[place] Neck: Reports: Supple Lungs: Reports: Normal Respiratory Effort, Rales Cardiovascular: Reports: Regular Rate, Regular Rhythm GI/Abdominal Exam: Normal Bowel Sounds, Soft, Non-Tender, No Distention, No Mass Extremities: Normal Inspection, Normal Capillary Refill, Pedal Edema Skin: Reports: Other (No wall induration with minimal tenderness.) Psy/Mental Status: Reports: Alert, Normal Affect, Normal Mood
--- NOTE | 2020-09-14 10:12 | CR ---
Chest: Portable view of the chest was obtained. Comparison: Prior chest x-ray of 05/11/19 and baseline study of 11/21/16. Heart is enlarged. Pulmonary vessels show chronic congestion. Slight increased density within the right lung base is seen which is believed to be chronic. Bony structures are grossly intact. Impression: 1. Multiple findings as noted above. 2. Nothing acute is definitely seen. Diagnostic code #2
== END 2020-09-13 13:40 | disposition home or self-care (01) | DRG 291 ==
LOC: JD.ED 22:15 → JD.ICU 09-11 00:59 → JD.MS 09-12 15:16
PROVIDERS: ADMIT Family Medicine; ATTEND Family Medicine
DX: I11.0 Hypertensive heart disease with heart failure (principal); J96.22 Acute and chronic respiratory failure with hypercapnia; J96.21 Acute and chronic respiratory failure with hypoxia; L03.311 Cellulitis of abdominal wall; J44.1 Chronic obstructive pulmonary disease with (acute) exacerbation; Z94.0 Kidney transplant status; I50.43 Acute on chronic combined systolic (congestive) and diastolic (congestive) heart failure; H54.7 Unspecified visual loss; K21.9 Gastro-esophageal reflux disease without esophagitis; I48.0 Paroxysmal atrial fibrillation; M19.90 Unspecified osteoarthritis, unspecified site; F17.200 Nicotine dependence, unspecified, uncomplicated; Z99.81 Dependence on supplemental oxygen; Z79.82 Long term (current) use of aspirin; Z79.899 Other long term (current) drug therapy; Z23 Encounter for immunization
CPT/HCPCS: 0240U; 36415; 36600; 51702; 71045; 71045-26; 80048; 80053; 80306; 82803; 83605; 83735; 83880; 84100; 84145; 84443; 84484; 85007; 85025; 85027; 85379; 86140; 87040; 90686; 93005; 93010; 93306; 94640; 94660; 94760; 94761; 96365; 96366; 97162-GP; 99285; 99285-25; A9270-GY; J0696; J1940; J2920; J3490; J7050; J7620-GY

== ENCOUNTER 2021-11-23 13:31 | Emergency (ER) | payer OTHER ==
[2021-11-23 13:49] VITALS: BP 137/99; PULSE 126
[2021-11-23] MEDS ORDERED: Albuterol/Ipratropium 3.0-0.5 MG/3 ML Neb Soln NEB ONE (15:45)
[2021-11-23] MEDS ORDERED: Doxycycline 100 MG Cap PO ONE (16:52)
[2021-11-23] MEDS ORDERED: Acetaminophen 325 MG Tab PO ONE (20:02)
== END 2021-11-23 20:30 | disposition home or self-care (01) ==
LOC: JD.ED 13:31
DX: J44.1 Chronic obstructive pulmonary disease with (acute) exacerbation (principal); I48.91 Unspecified atrial fibrillation; I11.0 Hypertensive heart disease with heart failure; I50.9 Heart failure, unspecified; E66.9 Obesity, unspecified; Z68.44 Body mass index [BMI] 60.0-69.9, adult; Z79.899 Other long term (current) drug therapy; Z79.82 Long term (current) use of aspirin; Z79.01 Long term (current) use of anticoagulants; Z72.0 Tobacco use; Z20.822 Contact with and (suspected) exposure to COVID-19
CPT/HCPCS: 36415; 71045; 80053; 83880; 84484; 85025; 86140; 87635; 93005; 94640; 99285; A9270; J7620-GY; U0002

== ENCOUNTER 2022-09-14 06:35 | Inpatient (IN) | payer OTHER ==
[2022-09-14] MEDS ORDERED: Albuterol/Ipratropium 3.0-0.5 MG/3 ML Neb Soln NEB ONE (07:02)
[2022-09-14] MEDS ORDERED: methylPREDNISolone Sodium Succinate 125 MG/2 ML SDV IVPUSH ONE (07:09)
[2022-09-14 07:38] LABS: HEMOGLOBIN A1C 5.5 %
[2022-09-14 07:41] LABS: CORONAVIRUS COVID-19 NAA NEGATIVE (NEGATIVE)
[2022-09-14] MEDS ORDERED: cefTRIAXone 2 GM in Sodium Chloride 0.9% 100 ML IV ONE (09:33)
[2022-09-14] MEDS ORDERED: VANCOmycin 1.5 GM/300 ML 1.5 GM in Premix Bag 1 BAG IV ONE (11:30)
[2022-09-14] MEDS ORDERED: Ondansetron 4 MG/2 ML SDV IV PRN (13:14)
[2022-09-14] MEDS ORDERED: Docusate Sodium 100 MG Cap PO PRN (13:14)
[2022-09-14] MEDS ORDERED: Albuterol 0.083% 2.5 MG/3 ML Neb Soln NEB PRN (13:14)
[2022-09-14] MEDS ORDERED: Furosemide 40 MG/4 ML VIAL IVPUSH ONE (15:30)
[2022-09-14] MEDS: Albuterol/Ipratropium 3.0-0.5 MG/3 ML Neb Soln NEB SCH ×2 (16:50→20:24)
[2022-09-14] MEDS: Apixaban 5 MG Tab PO SCH (21:10)
[2022-09-14] MEDS: Metoprolol Tartrate 25 MG Tab PO SCH (21:10)
[2022-09-14] MEDS ORDERED: Furosemide 40 MG/4 ML VIAL IVPUSH STA (21:12)
[2022-09-14] MEDS: Nicotine 14 MG/24 Hr Patch TRDERM SCH (21:12)
[2022-09-14] MEDS: Pantoprazole 40 MG Tab.CR PO SCH (21:13)
[2022-09-14] MEDS: methylPREDNISolone Sodium Succinate 40 MG/1 ML SDV IVPUSH SCH (21:17)
[2022-09-14] MEDS: Acetaminophen 325 MG Tab PO PRN (21:40)
[2022-09-15] MEDS: Albuterol/Ipratropium 3.0-0.5 MG/3 ML Neb Soln NEB SCH ×4 (05:57→21:23)
[2022-09-15] MEDS ORDERED: Furosemide 40 MG/4 ML VIAL IVPUSH SCH (06:00)
[2022-09-15] MEDS ORDERED: Aspirin 81 MG Tab.Chew PO SCH (09:00)
[2022-09-15] MEDS ORDERED: Aspirin 81 MG Tab.EC PO SCH (09:00)
[2022-09-15] MEDS: Apixaban 5 MG Tab PO SCH (09:14)
[2022-09-15] MEDS: Pantoprazole 40 MG Tab.CR PO SCH (09:14)
[2022-09-15] MEDS: Nicotine 14 MG/24 Hr Patch TRDERM SCH ×2 (09:20→13:56)
[2022-09-15] MEDS: cefTRIAXone 2 GM in Sodium Chloride 0.9% 100 ML IV SCH (09:21)
[2022-09-15] MEDS: methylPREDNISolone Sodium Succinate 40 MG/1 ML SDV IVPUSH SCH ×2 (09:27→21:50)
[2022-09-15] MEDS: Metoprolol Tartrate 25 MG Tab PO SCH ×2 (09:29→21:51)
[2022-09-15] MEDS ORDERED: Sodium Chloride 0.9% 10 ML Syringe FLUSH PRN (11:29)
[2022-09-15] MEDS ORDERED: Iopamidol 755 Mg/ML 100 ML Bottle IVPUSH ONE (11:29)
[2022-09-15] MEDS ORDERED: Iopamidol 755 MG/ML 50 ML Bottle IVPUSH ONE (11:29)
[2022-09-15] MEDS: Furosemide 40 MG/4 ML VIAL IVPUSH SCH (13:50)
[2022-09-16] MEDS: Furosemide 40 MG/4 ML VIAL IVPUSH SCH (05:30)
[2022-09-16] MEDS ORDERED: Bumetanide 1 MG/4 ML MDV IVPUSH SCH (06:00)
[2022-09-16] MEDS: Albuterol/Ipratropium 3.0-0.5 MG/3 ML Neb Soln NEB SCH ×4 (06:03→20:47)
[2022-09-16] MEDS: Sodium Polystyrene Sulfonate 15 GM/60 ML Susp 60 ML Bot PO SCH ×3 (06:48→22:11)
[2022-09-16] MEDS ORDERED: Furosemide 40 MG Tab PO SCH (09:00)
[2022-09-16] MEDS: Nicotine 14 MG/24 Hr Patch TRDERM SCH (09:42)
[2022-09-16] MEDS: Metoprolol Tartrate 25 MG Tab PO SCH ×2 (09:44→22:11)
[2022-09-16] MEDS: methylPREDNISolone Sodium Succinate 40 MG/1 ML SDV IVPUSH SCH ×2 (09:45→22:10)
[2022-09-16] MEDS ORDERED: Bupivacaine 0.5% 30 ML SDV ONE (09:48)
[2022-09-16] MEDS ORDERED: Lidocaine 1% 30 ML SDV ONE (09:48)
[2022-09-16] MEDS: Pantoprazole 40 MG Tab.CR PO SCH (09:53)
[2022-09-16] MEDS: cefTRIAXone 2 GM in Sodium Chloride 0.9% 100 ML IV SCH (09:53)
[2022-09-16] MEDS ORDERED: Ropivacaine 0.5% 5 MG/ML 30 ML SDV ONE (10:48)
[2022-09-16] MEDS ORDERED: Midazolam 1 MG/ML 2 ML SDV ONE (12:26)
[2022-09-16] MEDS ORDERED: fentaNYL 100 MCG/2 ML SDV ONE (12:29)
[2022-09-16] MEDS ORDERED: Lactated Ringers 1,000 ML IV ONE (13:00)
[2022-09-16] MEDS: Furosemide 40 MG Tab PO SCH (14:21)
[2022-09-16] MEDS: VANCOmycin 750 MG/150 ML 750 MG in Premix Bag 1 BAG IV SCH (15:58)
[2022-09-17] MEDS: VANCOmycin 750 MG/150 ML 750 MG in Premix Bag 1 BAG IV SCH ×2 (03:41→15:58)
[2022-09-17] MEDS: Albuterol/Ipratropium 3.0-0.5 MG/3 ML Neb Soln NEB SCH ×4 (05:14→20:06)
[2022-09-17] MEDS: Furosemide 40 MG Tab PO SCH ×2 (05:55→13:24)
[2022-09-17] MEDS: Nicotine 14 MG/24 Hr Patch TRDERM SCH (09:37)
[2022-09-17] MEDS: Pantoprazole 40 MG Tab.CR PO SCH (09:38)
[2022-09-17] MEDS: Metoprolol Tartrate 25 MG Tab PO SCH ×2 (09:38→21:12)
[2022-09-17] MEDS: methylPREDNISolone Sodium Succinate 40 MG/1 ML SDV IVPUSH SCH (09:41)
[2022-09-17] MEDS ORDERED: Nystatin Topical Powder 15 GM Bottle TOP PRN (13:13)
[2022-09-17] MEDS: Acetaminophen 325 MG Tab PO PRN ×2 (13:23→17:26)
[2022-09-17] MEDS: Apixaban 5 MG Tab PO SCH (21:11)
[2022-09-18] MEDS: VANCOmycin 750 MG/150 ML 750 MG in Premix Bag 1 BAG IV SCH ×3 (03:54→15:30)
[2022-09-18] MEDS: Albuterol/Ipratropium 3.0-0.5 MG/3 ML Neb Soln NEB SCH ×4 (06:00→21:34)
[2022-09-18] MEDS: predniSONE 20 MG Tab PO SCH (06:20)
[2022-09-18] MEDS: Furosemide 40 MG Tab PO SCH ×2 (06:20→14:48)
[2022-09-18] MEDS: Nicotine 14 MG/24 Hr Patch TRDERM SCH (08:28)
[2022-09-18] MEDS: Aspirin 81 MG Tab.Chew PO SCH (08:30)
[2022-09-18] MEDS: Pantoprazole 40 MG Tab.CR PO SCH (08:31)
[2022-09-18] MEDS: Metoprolol Tartrate 25 MG Tab PO SCH ×2 (08:31→22:35)
[2022-09-18] MEDS: Apixaban 5 MG Tab PO SCH ×2 (08:31→22:36)
[2022-09-18] MEDS: Acetaminophen 325 MG Tab PO PRN ×2 (15:19→22:33)
[2022-09-18] MEDS: Cefdinir 300 MG Cap PO SCH (22:34)
[2022-09-19] MEDS: Albuterol/Ipratropium 3.0-0.5 MG/3 ML Neb Soln NEB SCH ×2 (06:04→09:08)
[2022-09-19] MEDS: Furosemide 40 MG Tab PO SCH (07:13)
[2022-09-19] MEDS: predniSONE 20 MG Tab PO SCH (07:13)
[2022-09-19] MEDS: Nicotine 14 MG/24 Hr Patch TRDERM SCH (08:13)
[2022-09-19] MEDS: Metoprolol Tartrate 25 MG Tab PO SCH (08:14)
[2022-09-19] MEDS: Cefdinir 300 MG Cap PO SCH (08:14)
[2022-09-19] MEDS: Pantoprazole 40 MG Tab.CR PO SCH (08:14)
[2022-09-19] MEDS: Aspirin 81 MG Tab.Chew PO SCH (08:15)
[2022-09-19] MEDS: Apixaban 5 MG Tab PO SCH (08:15)
[2022-09-19] MEDS: Acetaminophen 325 MG Tab PO PRN (10:49)
[2022-09-19 11:54] VITALS: BP 124/87; PULSE 83
== END 2022-09-19 12:49 | disposition home or self-care (01) | DRG 291 ==
LOC: JD.ED 06:35 → JD.MS 11:15
PROVIDERS: ADMIT Pediatrics; ATTEND Pediatrics
PROC: 0H9NXZZ Drainage of Left Foot Skin, External Approach (ICD-10-PCS; principal; 2022-09-16)
DX: I11.0 Hypertensive heart disease with heart failure (principal); I50.43 Acute on chronic combined systolic (congestive) and diastolic (congestive) heart failure; J96.22 Acute and chronic respiratory failure with hypercapnia; L97.429 Non-pressure chronic ulcer of left heel and midfoot with unspecified severity; L03.116 Cellulitis of left lower limb; J44.1 Chronic obstructive pulmonary disease with (acute) exacerbation; N30.01 Acute cystitis with hematuria; Z68.45 Body mass index [BMI] 70 or greater, adult; Z94.0 Kidney transplant status; E66.2 Morbid (severe) obesity with alveolar hypoventilation; Z20.822 Contact with and (suspected) exposure to COVID-19; E87.5 Hyperkalemia; K21.9 Gastro-esophageal reflux disease without esophagitis; I48.0 Paroxysmal atrial fibrillation; H54.7 Unspecified visual loss; G47.30 Sleep apnea, unspecified; Z85.528 Personal history of other malignant neoplasm of kidney; Z90.5 Acquired absence of kidney; Z90.49 Acquired absence of other specified parts of digestive tract; Z91.199 Patient's noncompliance with other medical treatment and regimen due to unspecified reason; Z79.01 Long term (current) use of anticoagulants; Z79.899 Other long term (current) drug therapy; Z79.52 Long term (current) use of systemic steroids; Z79.51 Long term (current) use of inhaled steroids; Z87.891 Personal history of nicotine dependence
CPT/HCPCS: 0241U; 36415; 36600; 71045; 71045-26; 73701-26-LT; 73701-LT; 80048; 80053; 80061; 80202; 81001; 82553; 82803; 82947; 83036; 83605; 83735; 83880; 84145; 84484; 85025; 85610; 85730; 86140; 87040; 87070; 87075; 87086; 87088; 87186; 87205; 87641; 93005; 93307; 94640; 94660; 94667; 94668; 94762; 96365; 96366; 96367; 96375; 97162-GP; 97166-GO; 97530-GO; 97530-GP; 99285-25; A9270-GY; J0696; J1940; J2250; J2795; J2920; J2930; J3010; J3370; J3490; J7050; J7120; J7512; J7620-GY; Q9967